=== PATIENT | male | born 1960 | race Caucasian/White ===

== ENCOUNTER 2024-12-20 23:27 | Inpatient (IN) | payer BC, SELFPAY ==
[2024-12-20 19:27] VITALS: BP 145/65
[2024-12-20 20:52] VITALS: BMI 40.2
[2024-12-20 21:10] VITALS: BP 126/67
[2024-12-20 21:27] LABS: Hematocrit 30.6 % (39.0-52.0); Hemoglobin 9.0 g/dL (13.0-18.0); Mean Corp Hgb Conc. 29.4 g/dL (33.0-37.0); Mean Corpuscular Volume 82.5 fL (80.0-94.0); Nucleated Red Blood Cells % 0.4 % (-); Platelet Count 242 10^3/uL (130-400); Red Cell Dist. Width 22.1 % (11.5-14.5)
[2024-12-20 21:44] LABS: Blood Urea Nitrogen 73 mg/dl (9-20); Calcium 9.0 mg/dl (8.4-10.2); Carbon Dioxide 22 mmol/L (22-30); Chloride 114 mmol/L (98-107); Estimated Creatinine Clearance 39 ml/min; Glucose 37 mg/dl (70-99); Sodium 142 mmol/L (135-145); eGFR 34.93
[2024-12-20 21:51] LABS: Troponin I 0.019 ng/ml
[2024-12-20 22:00] VITALS: BP 142/70
--- NOTE | 2024-12-20 22:00 | ED.GENMED ---
History of Present Illness
General
Chief Complaint: Breathing Problem
Source: patient and family
Exam Limitations: none
Time Seen by Provider: 12/20/24 21:40
History of Present Illness
History of Present Illness:
See MDM
Past History
Past History
ED Past Medical History: CAD and HTN
ED Past Surgical History: Cardiac
Family History
Family History: CAD
Phy Exam
Physical Exam
Physical Exam:
See MDM
Scores
Heart Failure Risk
Heart Failure Risk Score: Yes
History of Stroke or TIA: No
History of intubation for respiratory distress: No
Heart rate on ED arrival >/= 110: No
SaO2 <90% on arrival on room air: Yes
HR >/=110 during 3min walk test (or too ill to perform test): Yes
ECG has acute ischemic changes: No
Urea >/=12mmol/L (BUN 33.6mg/dL): Yes
Serum CO2>/=35mmol/L: No
Troponin I or T elevated to [place] Level (0.4mg/dL): No
NT-proBNP >/=5,000ng/L (5,000pg/ml): No
HF Risk Score: 4
Admission Status: HIGH RISK 26.1% Consider SNF treatment or admission to hospital
Course
Orders/Labs/Results
Orders:
Orders
12/20/24 19:35
Electrocardiogram (*1) Urgent
Reason for Study: Shortness of Breath
EKG- Treatment ONCE
12/20/24 21:02
Cardiac Monitoring- Treatment ONCE
IV Insert/Care/Rem.- Treatment PRN
CR Chest - 2 Views Urgent
Comment:
Reason For Exam: respiratory distress
O2 Therapy [RESP] Urgent
Titrate/Wean O2 to maintain O2 sat greater than (%): 93
Special Instructions: TO MAINTAIN CONTINUOUS O2 SATS >/= 93%
Pulse Ox/cont/shift [RESP] Urgent
Quantity: 1
Special Instructions: continuous pulse ox
12/20/24 21:06
Basic Metabolic Panel Urgent
Complete Blood Count/With Diff Urgent
12/20/24 21:11
NT-proBNP Urgent
Troponin I Urgent
12/20/24 21:50
Dextrose 50%-Water [Dextrose 50% Syringe] 25 grams IV NOW STA
12/20/24 21:58
Furosemide [Lasix] 80 mg IV NOW STA
Abnormal Lab Results
12/20/24
21:06
RBC 3.71 L 10^6/uL
(4.70-6.10)
Hgb 9.0 L g/dL
(13.0-18.0)
Hct 30.6 L %
(39.0-52.0)
MCH 24.3 L pg
(27.0-31.0)
MCHC 29.4 L g/dL
(33.0-37.0)
RDW 22.1 H %
(11.5-14.5)
Abs Immat Gran (auto) 0.2 H 10^3/uL
(0-0.05)
Absolute Neuts (auto) 7.2 H 10^3/uL
(1.4-6.5)
Absolute Lymphs (auto) 1.0 L 10^3/uL
(1.2-3.4)
Absolute Monos (auto) 0.9 H 10^3/uL
(0.1-0.6)
Immature Gran % 1.6 H %
(0-0.5)
Lymphocytes % 10.5 L %
(20.5-51.1)
Chloride 114 H mmol/L
(98-107)
BUN 73 H mg/dl
(9-20)
Creatinine 2.1 H mg/dL
(0.7-1.3)
Glucose 37 L* mg/dl
(70-99)
12/20/24 21:06
12/20/24 21:06
Vital Signs
Initial and Last Documented VS:
Initial Vital Signs
Temp Pulse Resp BP Pulse Ox
98.3 F 67 16 145/65 93
12/20/24 19:27 12/20/24 19:27 12/20/24 19:27 12/20/24 19:27 12/20/24 19:27
Last Documented Vital Signs
Temp Pulse Resp BP Pulse Ox
98.3 F 66 16 145/65 89
12/20/24 19:27 12/20/24 20:37 12/20/24 19:27 12/20/24 19:27 12/20/24 20:53
MDM/Problems Addressed
Differential Diagnosis Includes:
Note:
CHIEF COMPLAINT(S)
Shortness of breath and recent weight gain.
HISTORY OF PRESENT ILLNESS
The patient is a 63-year-old male who presents with complaints of shortness of breath and significant weight gain. According to his older brother, the patient has gained 10 pounds in the last five days, which the physical therapist attributed to
water retention. The patient underwent a triple bypass surgery and has been under the care of various therapists at home, including physical, speech, and occupational therapy. His follow-up appointments with his doctors are scheduled to take place
in 30 days in [place]. The patient has not been prescribed any diuretics since the surgery, although his brother noted that the patient appears to be fluid overloaded. During the conversation, it was evident that there are audible signs of fluid
congestion, and immediate intervention with intravenous diuretics was deemed necessary.
PAST MEDICAL AND SURIGICAL HISTORY
Recent triple bypass surgery.
ADDITIONAL HISTORY OBTAINED FROM SOURCES OTHER THAN THE PATIENT
Per the patient�s brother, the patient is participating in home-based therapies and has not been prescribed water pills following the bypass surgery.
MEDICATIONS
Patient is not currently on any diuretics. Ferrous sulfate was mentioned.
PHYSICAL EXAM
General: Mildly uncomfortable, fatigued
Skin: Warm, dry.
Head: Normocephalic, atraumatic
Neck: Appears supple, trachea midline.
Eyes, Ears, Nose, Mouth, and Throat: Oral mucosa moist.
Cardiovascular: No signs of cyanosis. Regular rate and rhythm
Respiratory: Tachypnea, crackles throughout
Abdomen: Non-distended
Musculoskeletal: +3 pitting edema bilateral lower extremities
Neurological: No focal neurological deficit observed.
Psychiatric: Cooperative, appropriate mood and affect.
PLAN
- Initiate treatment with intravenous diuretics, specifically Furosemide.
- Conduct blood work and a chest X-ray.
- Admit the patient for overnight observation and management, especially for fluid overload.
DIFFERENTIAL DIAGNOSIS
The Differential Diagnosis includes, in no particular order and is not limited to:
1. Congestive Heart Failure
2. Postoperative Fluid Overload
3. Pulmonary Edema
4. Acute Kidney Injury
5. Medication-induced Fluid Retention
6. Chronic Kidney Disease
7. Respiratory Infection
8. Pulmonary Embolism
9. Hypoalbuminemia
10. Valvular Heart Disease
Disposition:
SUMMARY OF ENCOUNTER
A 63-year-old male presented to the emergency department with shortness of breath and recent weight gain, suspected to be due to fluid retention. The patient had a recent history of triple bypass surgery. Upon physical examination and history
obtained from his brother, signs of fluid overload were identified. A chest X-ray and clinical assessment indicated pulmonary edema. The patient was found to be hypoglycemic, requiring intravenous dextrose administration. Immediate management
included the initiation of intravenous furosemide (Lasix) to address fluid overload and pulmonary edema. Supplemental oxygen was provided due to noted hypoxia.
DISPOSITION
Admit
ASSESSMENT
The primary concern is postoperative fluid overload leading to pulmonary edema. Contributing factors include possible congestive heart failure and reduced cardiac function following recent surgery. Hypoglycemia was an incidental finding needing
immediate correction.
EMERGENCY TREATMENTS ADMINISTERED
- Intravenous Furosemide (Lasix) for fluid overload.
- Intravenous Dextrose for hypoglycemia.
PLAN
- Admit the patient for close monitoring and further management of pulmonary edema and hypoglycemia.
- Continue intravenous diuretics and supplemental oxygen.
INDEPENDENT REVIEW OF LABS AND INTERPRETATION OF TESTS
- My independent chest x-ray interpretation is consistent with pulmonary edema.
MEDICATION RECONCILIATION
- Intravenous Furosemide administered.
- Intravenous Dextrose administered.
MEDICAL DECISION MAKING
- Complexity of Data Reviewed: Chronic conditions affecting care include postoperative fluid overload and recent triple bypass surgery. Differential diagnosis includes congestive heart failure, pulmonary edema, acute kidney injury, and
medication-induced fluid retention.
- Data:
Category 2: Clinical information was obtained from the patients brother, serving as an independent historian.
- Risk: Admission for observation was deemed necessary due to the potential complications linked with fluid overload and pulmonary edema, as well as the need to manage hypoglycemia and ensure effective treatment response.
DIAGNOSIS
- Pulmonary Edema, Congestive [ICD-10 J81.0]
- Fluid Overload [ICD-10 E87.70]
- Hypoglycemia, Unspecified [ICD-10 E16.2]
*Pulse Oximetry
SaO2: 89
Oxygen Mode of Delivery: Room air
Patient hypoxic: yes
*EKG
Interpreted by ED Provider?: Yes
Interpretation: abnormal (Sinus rhythm with first-degree AV block, rightward axis, no STEMI)
*Critical Care Note
Total Time (30-74mins, 75-104mins- exclusive of procedures): 33 min
comment:
The high probability of a clinically significant, sudden or life threatening deterioration of the cardiopulmonary system(s) required my full and direct attention, intervention and personal management. The aggregate critical care time was 33 minutes.
This time is in addition to time spent performing reported procedures but includes the following:
[x] Data Review and interpretation
[x] Patient assessment and monitoring of vital signs
[x] Documentation
[x] Medication orders and management
ED Attending Note
-
Portions of this chart may have been created with voice recognition software.� Occasional wrong word or��sound alike� substitutions may have occurred due to the inherent limitations of voice recognition software.
Discharge Plan
Departure
Patient Disposition: Admit
Date of Disposition: 12/20/24
Time of Disposition: 22:00
Admit to: Med/Surg
Presentation/result/management discussed w/ accepting MD/DO: Hospitalist
Discharge Problem:
Pulmonary edema, Hypoglycemia, Hypoxia
Interventions
Interventions:
*General Assessment Last Done: 12/20/24 20:53
*Neglect/Abuse Screening Last Done: 12/20/24 20:53
*ED- Fall Risk Assessment Last Done: 12/20/24 20:53
*ED COVID-19 Vaccine History Last Done: 12/20/24 20:53
ED- Cardiac Assessment Last Done: 12/20/24 20:53
ED- Pulmonary Assessment Last Done: 12/20/24 20:53
Discharge Date and Time
Print Language: INDONESIAN
[2024-12-20] MEDS: DEXTROSE 50% SYRINGE 25 GRAMS IV (22:11)
[2024-12-20 22:34] LABS: Potassium 5.8 mmol/L (3.5-5.1)
[2024-12-20 22:38] LABS: Glucose - Point of Care 82 mg/dl (70-99)
[2024-12-20 23:00] VITALS: BP 128/74
[2024-12-20] MEDS: LASIX 80 MG IV (23:10)
--- NOTE | 2024-12-20 23:17 | HPS.HSE ---
Family Physician
-
Family Physician: NOT KNOW UNKNOWN - PT DOES
Chief Complaint
-
SOB, Weight gain
History of Present Illness
Patient is a 63y M with PMH significant for ASCVD, DM-II and obesity who presents to ED complaining of SOB and weight gain. History obtained primarily from brother at the bedside due to patient somnolence. Patient underwent CABG x 3 at [facility] in [place] on 11/15/24. Following that he was at SNF in [place] before being discharged to his brother's care here in [place] (Saturday of last week). He has had home PT since that time. Brother was instructed to check the patient's weight
daily and has done so since Saturday. From Saturday until today patient has gained 10 lbs. He has been very SOB with any activity exertion. He sleeps 'all day' according to his brother. He has not complained of any chest pain, cough, fevers /
chills, etc.
Patient was on Lasix and Farxiga prior to his CABG. He is no longer on those medications.
He was also started on muscle relaxants for complaints of back pain during his SNF stay.
Patient was told he has sleep apnea during his recent hospitalization and as maintained on PAP therapy while there (though he frequently removed the mask).
He was advised to arrange a formal outpatient sleep study - though this has yet to be completed.
Medical History
Past Medical History
Past Medical History: Reports Other
Additional Past Medical History:
ASCVD
TIA / CVA
Carotid Stenosis
CHF
Hypertension
DM-II
Obesity
Past Surgical History: Reports Other
Additional Past Surgical History:
CABG x 3 (11/15/24 - [place], [place])
Bilateral BOOM
Carotid Stent
Social History
Tobacco: Non-smoker
Alcohol: None
Drug: None
Family History
Family History: Not pertinent
Allergies / Home Medications
Allergies reflects when Allergies were last updated in [facility].
Home Medications with original date entered in [facility]
Allergy/Medication List:
Allergies
Allergy/AdvReac Type Severity Reaction Status Date / Time
No Known Allergies Allergy Verified 12/20/24 19:34
Home Medications
gabapentin 100 mg capsule 100 mg PO BID 12/20/24
insulin glargine 100 unit/mL (3 mL) subcutaneous pen 12 unit SC DAILY 12/20/24
lidocaine 4 % topical patch (Lidocaine Pain Relief) 1 patch topical DAILY PRN pain 12/20/24
metoprolol tartrate 37.5 mg tablet 37.5 mg PO BID 12/20/24
pantoprazole 40 mg tablet,delayed release 40 mg PO DAILY 12/20/24
tamsulosin 0.4 mg capsule 0.4 mg PO DAILY 12/20/24
trazodone 50 mg tablet 50 mg PO HS 12/20/24
Review of Systems
-
History Source: Patient and Family
A 12 point ROS was completed and negative except as noted: Yes
Constitutional: Reports Weight Gain and Fatigue; Denies Fever or Chills
Respiratory: Reports Trouble Breathing; Denies Cough
Cardiac: Denies Chest Pain or Palpitations
Abdomen/GI: Denies Abdominal Pain, Nausea, Vomiting or Diarrhea
: Denies Dysuria or Frequency
Musculoskeletal: Reports Edema; Denies Joint Pain
Neurological: Denies Dizzy or Headache
Psych: Reports Other (Somnolence)
Physical Exam
Vital Signs
Vital Signs
Temp Pulse Resp BP Pulse Ox
98.3 F 59 16 128/74 89
12/20/24 19:27 12/20/24 23:10 12/20/24 19:27 12/20/24 23:10 12/20/24 22:05
Physical Exam
General: Other (Morbidly obese 63y M somnolent. Sleeping soundly with snoring / gasping. Awakens briefly to loud vocal or noxious stimuli then falls quickly back to sleep.)
HEENT: Other (Thick neck, rounded facies, crowded oropharynx.)
Respiratory: Other (Scattered coarse breath sounds. ? upper airway in origin. No rales / wheezes.)
Cardiac: S1/S2 and Regular Rhythm; No Murmur
GI: Other (Obese. Abdominal wall edema - predominantly on the R side (pt preferred side to lay on). No tenderness.)
Musculoskeletal: No Clubbing, No Cyanosis and Other (2-3+ pitting edema legs and abdominal wall. Wound medial aspect of the LLE.)
Neuro: Nonfocal/grossly intact and Other (Somnolent.)
Laboratory Results
-
12/20/24 21:06
12/20/24 22:17
Laboratory Results
Total Bilirubin Cancelled 12/20/24 21:06
AST Cancelled 12/20/24 21:06
ALT Cancelled 12/20/24 21:06
Alkaline Phosphatase Cancelled 12/20/24 21:06
Troponin I 0.019 ng/ml 12/20/24 21:11
Impression/Plan
-
A/P: Patient is a 63y M with PMH significant for ASCVD, HTN and DM-II who presents to ED complaining of SOB, weight gain and lethargy.
Acute on Chronic HF - Unknown Type
Acute Hypoxemic Respiratory Failure secondary to the above
- Admit for further evaluation and treatment.
- Hypoxemia, elevated BNP (with no prior for comparison), weight gain, significant edema.
- IV Lasix BID and follow I/Os, daily weights, etc.
- Check Echo.
- Obtain records from [facility] for review.
- Cardiology evaluation for additional recommendations
- Note that patient has dx of CHF and was on Farxiga and Lasix prior to his CABG.
- Follow for clinical improvement.
Acute TME / Somnolence
- Potentially multifactorial. Hypoglycemia, poorly treated sleep apnea, med effects, etc.
- Hold sedating meds (trazodone, muscle relaxants, etc).
- VBG done in the ED shows acidemia - but no elevation in pCO2 or decrease in HCO3?
- Trial of BiPAP therapy overnight and follow for improvement in alertness / mentation.
- Follow glucose and provide supplementation if needed.
- Check TFTs.
Renal Insufficiency
Hyperkalemia
- ? GARY v CKD. Degree of GARY seems likely given presentation.
- IV diuresis as noted above and follow for changes in SCr, potassium, etc.
- Obtain prior records as noted above for baseline SCr.
ASCVD
s/p CABG
- Patient s/p CABG x 3 on 11/15 at [facility] in [place].
- Obtain those records as noted above.
- ASA daily. Hold metoprolol acutely given bradycardia / somnolence.
- Would probably change to succinate formulation if / when resumed.
DM-II with Hypoglycemia
- Glucose 37 on initial labs. Improved with supplementation (82 on fingerstick).
- On only Lantus per current med list - hold for now.
- Follow glucose and provide additional supplementation if needed.
- SSI coverage if necessary.
- Update A1C.
Normocytic Anemia
- ? blood loss anemia following recent major surgery (11/15/24).
- Obtain prior records to establish baseline.
- Follow H&H for changes. Check iron studies.
Morbid Obesity due to excess calories
CHRIS Suspect
- Affects all aspects of care.
- On PAP therapy during recent hospital stay. Outpatient sleep study recommended but not yet completed.
- BiPAP during stay - titrate as needed.
- Encourage healthy diet and increased activity as able with goal of weight reduction.
DVT Prophylaxis: Subcut Heparin
Code Status: Full
[2024-12-20 23:20] LABS: Venous Blood Gas B.E. -4.8 mmol/L (-4 to +4); Venous Blood Gas O2 Sat % 99.2 %
[2024-12-20 23:52] LABS: Glucose - Point of Care 37 mg/dl (70-99)
[2024-12-20] MEDS: DEXTROSE 50% SYRINGE 12.5 GRAMS IV (23:55)
[2024-12-21] VITALS (15 sets, daily range): BP systolic 117–155; BP diastolic 58–99; PULSE 2; BMI 37.6
[2024-12-21 00:12] LABS: Glucose - Point of Care 67 mg/dl (70-99)
[2024-12-21] MEDS: DEXTROSE 50% SYRINGE 12.5 GRAMS IV ×12 (00:13→21:36)
[2024-12-21 00:34] LABS: Glucose - Point of Care 83 mg/dl (70-99)
[2024-12-21 01:46] LABS: Iron 60 ug/dl (49-181)
[2024-12-21 01:49] LABS: Troponin I 0.018 ng/ml
[2024-12-21 01:55] LABS: Total Iron Binding Capacity 263 ug/dl (261-462)
--- NOTE | 2024-12-21 02:12 | PTCARENOTE ---
Addendum entered by Jory Bowers 12/21/24 03:42:
Pt hypothermic, refuses raghav cardoza. Warm blankets placed
Original Note:
Rec'd pt from ED RN. Pt drowsy, lethargic with snoring respirations. B/l STACY's present. Pt oriented to self at this time. Pt placed on BiPAP by RT, pt frequently pulling at mask, yelling out 'help me'. Unable to articulate needs upon assessment.
After several attempts at BiPAP, pt placed back on 2L NC. Pt continues to yell out. Admission performed to the best of ability. Blood glucose 33 upon assessment. Dextrose given per JUN. Repeat 67, dextrose given again per JUN. FIELD SERVICES ANALYST contacted. IVF
hung per orders. Bed alarm in place for pt safety.
[2024-12-21 02:34] LABS: Glucose - Point of Care 33 mg/dl (70-99)
[2024-12-21] MEDS: D10W 1000 IV ×2 (02:36→15:42)
[2024-12-21 02:51] LABS: Glucose - Point of Care 67 mg/dl (70-99)
[2024-12-21 03:10] LABS: Glucose - Point of Care 99 mg/dl (70-99)
[2024-12-21 05:22] LABS: Glucose - Point of Care 49 mg/dl (70-99)
[2024-12-21 05:44] LABS: Glucose - Point of Care 74 mg/dl (70-99)
[2024-12-21 05:49] LABS: Hematocrit 30.6 % (39.0-52.0); Hemoglobin 9.1 g/dL (13.0-18.0); Mean Corp Hgb Conc. 29.7 g/dL (33.0-37.0); Mean Corpuscular Volume 83.2 fL (80.0-94.0); Platelet Count 210 10^3/uL (130-400); Red Cell Dist. Width 22.0 % (11.5-14.5)
[2024-12-21 06:15] LABS: Blood Urea Nitrogen 77 mg/dl (9-20); Calcium 9.0 mg/dl (8.4-10.2); Carbon Dioxide 21 mmol/L (22-30); Chloride 114 mmol/L (98-107); Estimated Creatinine Clearance 40 ml/min; Glucose 93 mg/dl (70-99); HDL Cholesterol 69 mg/dl; LDL Cholesterol, Calculated 40 mg/dl; Magnesium 2.4 mg/dl (1.6-2.3); Potassium 5.7 mmol/L (3.5-5.1); Sodium 142 mmol/L (135-145); Very Low Density Lipoprotein 6 mg/dl (0-30); eGFR 33.04
[2024-12-21 06:28] LABS: Troponin I 0.019 ng/ml
[2024-12-21 06:40] LABS: Glucose - Point of Care 43 mg/dl (70-99)
[2024-12-21 06:53] LABS: Glucose - Point of Care 81 mg/dl (70-99)
[2024-12-21] MEDS: LASIX 60 MG IV ×2 (07:50→15:36)
[2024-12-21] MEDS: HEPARIN 5000 UNITS SC ×2 (07:51→19:42)
[2024-12-21 07:53] LABS: Glucose - Point of Care 46 mg/dl (70-99)
[2024-12-21 08:22] LABS: Glucose - Point of Care 70 mg/dl (70-99)
[2024-12-21] MEDS: PROTONIX PO (08:23)
[2024-12-21] MEDS: LOW STRENGTH ASPIRIN PO (08:23)
[2024-12-21] MEDS: FLOMAX PO (08:23)
--- NOTE | 2024-12-21 08:31 | CON.CAR ---
Addendum entered and electronically signed by Jim Ortiz MD 12/21/24 18:10:
I saw and evaluated the patient, and I provided the substantive portion of the medical decision making.
I reviewed and agree with the note by BRIDGER Wilson and it accurately reflects our care.
I personally performed the medical decision making of the this encounter and my assessment and plan is below:
63-year-old man with recent bypass surgery at an outside institution. We have no records yet. The records have been requested. He presents with shortness of breath weight gain and lethargy. His x-ray that I reviewed clearly is consistent with heart
failure. His labs that I reviewed revealed anemia and hypoglycemia. Fortunately he is not having angina. He is not able to add much to history. We will proceed with diuresis, update an echocardiogram and review records when they become available.
His significant renal failure is adding to this high risk case. Its chronicity i.e. duration of renal failure and its severity are unknown to us. Review of all records will be helpful. He may benefit from nephrology consultation if his renal numbers
do not promptly improve.
Original Note:
Consultation
Consultation Request
Date/Time Consultation Requested: 12/21/2454
Date/Time Consultation Performed: 12/21/24829
Requesting Provider: Dr. Vu
Performing Provider: Jewell SPARKS for Dr. Ortiz
Reason for Consultation: CHF, CAD
Medical History
-
Chief Complaint: SOB, weight gain, lethargy
History of Present Illness:
63 y/o male with DM2 on insulin, hx TIA/CVA, carotid stenosis with stenting, hypertension, obesity, CHF (type unknown, though meds suggest pEF), [place], and CAD. Patient had recent CABG (11/15/24- [place]), then went to SNF, then has been staying with his
brother. He has had weight gain (10 lbs), [place], and lethargy. Apparently was formerly on Lasix and Farxiga. Hypoglycemia is noted and he is getting dextrose. Temp was 95.4 and he is on Abdi hugger. He is also noted to have abnormal renal function and
baseline is unknown. Hyperkalemia is also noted. PMH/HPI obtained from chart as patient has lethargy and confusion and is a poor historian as a result. He responds to voice, but does not seem to be reliable historian at this time. This is not a
change per nursing. He has soft restraints to wrists for safety per nursing.
Past Medical History
Past Medical History: CAD, HTN, NIDDM and Other (as above)
Past Surgical History: Cardiac
Social History
Living: Other (currently staying with brother)
Family History
Family History: Unable to Obtain
Allergies / Home Medications
Allergy/AdvReac Type Severity Reaction Status Date / Time
No Known Allergies Allergy Verified 12/20/24 19:34
�Medication �Instructions �Recorded �Confirmed �Type
gabapentin 100 mg capsule 100 mg PO BID 12/20/24 12/20/24 History
insulin glargine 100 unit/mL (3 12 unit SC DAILY 12/20/24 12/20/24 History
mL) subcutaneous pen
lidocaine 4 % topical patch 1 patch topical DAILY PRN pain 12/20/24 12/20/24 History
(Lidocaine Pain Relief)
metoprolol tartrate 37.5 mg tablet 37.5 mg PO BID 12/20/24 12/20/24 History
pantoprazole 40 mg tablet,delayed 40 mg PO DAILY 12/20/24 12/20/24 History
release
tamsulosin 0.4 mg capsule 0.4 mg PO DAILY 12/20/24 12/20/24 History
trazodone 50 mg tablet 50 mg PO HS 12/20/24 12/20/24 History
Review of Systems
-
Unable to obtain full review of systems at this time due to: Other (mental status)
History Source: Other (chart, nursing)
Constitutional: Weight Gain
Respiratory: Trouble Breathing
Musculoskeletal: Edema
Neurological: Other (lethargy/confusion)
Physical Exam
Vital Signs
Temp Pulse Resp BP Pulse Ox
95.8 F L 76 11 144/99 94
12/21/24 08:14 12/21/24 08:00 12/21/24 08:00 12/21/24 08:00 12/21/24 08:00
Lab Results
12/21/24 05:27
12/21/24 05:27
Troponin I 0.019 ng/ml 12/21/24 05:27
Idf-[id number]-Ljfqbveuigz Pept 4580 pg/ml 12/20/24 21:11
Physical Exam
General: Well Developed, Well Nourished and No Apparent Distress
HEENT: Normocephalic and Anicteric
Respiratory: Other (on O2 by NC, diminished lung sounds)
Cardiac: Regular Rhythm
Musculoskeletal: Edema (mild-moderate BLE edema)
Neuro: Awake (Opens eyes to voice, answers some questions intermittently)
Impression / Plan
-
Confusion/lethargy:
-w/u and management per primary team
CHF, acute, type unknown (suspect HFpEF based on meds- metoprolol tartrate):
-echo is ordered, but recent records will be helpful- requested
-LE edema noted, weight gain reported, CXR suggestive CHF- agree with IV diuresis, which requires intensive monitoring
-per notes, was previously on Lasix and Farxiga. No SGLT2I for now with hypoglycemia- see below.
Abnormal renal function:
-baseline is unknown, monitor with diuresis
-patient also with hyperkalemia
-may benefit from renal consult
CAD with recent hx CABG:
-continue ASA. Would resume BB at lower dosing with hold parameters and follow telemetry. No severe bradycardia is noted. Not clear why not on statin. Records requested. LFT's added on.
Hypoglycemia:
-37 on arrival
-getting dextrose
-management per primary
-has DM2 on insulin per chart
Anemia:
-monitor
-unknown baseline
Data Reviewed
-
EKG: Tracing Personally Visualized and interpreted (SR with 1st degree AVB 65 BPM)
Radiology: Report Reviewed by me (CXR: Moderate elevation of the right hemidiaphragm. Findings suggesting interstitial pulmonary edema pattern with small bilateral pleural effusions.)
Medical Tests (Nuc Med, Echo etc): Other (echo ordered and pending)
Labs: Labs Reviewed by me
[2024-12-21 09:03] LABS: Glycohemoglobin (HgbA1c) 6.8 % (4.0-5.6)
[2024-12-21 09:17] LABS: Glucose - Point of Care 45 mg/dl (70-99)
[2024-12-21 09:30] LABS: Glucose - Point of Care 87 mg/dl (70-99)
[2024-12-21 09:41] LABS: Cortisol, Random 25.5 ug/dl
[2024-12-21 10:20] LABS: Glucose - Point of Care 94 mg/dl (70-99)
[2024-12-21 10:43] LABS: ALT (SGPT) 117 U/L (0-50); AST (SGOT) 51 U/L (17-59); Albumin 3.5 g/dl (3.5-5.0); Alkaline Phosphatase 257 U/L (38-126); Total Protein 5.9 g/dl (6.3-8.2)
[2024-12-21 11:23] LABS: Glucose - Point of Care 67 mg/dl (70-99)
[2024-12-21 11:51] LABS: Blood Urea Nitrogen 71 mg/dl (9-20); Calcium 8.6 mg/dl (8.4-10.2); Carbon Dioxide 23 mmol/L (22-30); Chloride 114 mmol/L (98-107); Estimated Creatinine Clearance 38 ml/min; Glucose 62 mg/dl (70-99); Potassium 5.5 mmol/L (3.5-5.1); Sodium 143 mmol/L (135-145); eGFR 31.32
[2024-12-21 11:55] LABS: Glucose - Point of Care 98 mg/dl (70-99)
--- NOTE | 2024-12-21 11:56 | WOUNDNOTE ---
L MEDIAL LOWER LEG BEHIND KNEE
--- NOTE | 2024-12-21 11:56 | WOUNDNOTE ---
L MEDIAL DISTAL LOWER LEG
--- NOTE | 2024-12-21 11:59 | WOUNDNOTE ---
WOC RN note: Patient admitted with pulmonary edema, hypoxia.
See H&P for complete history. Lives by self in [facility], staying with brother in [place].
PMH: CABG x3,( at [facility] 11/15/24, DM type 2, obesity, TIA/CVA,HTN,CHF,ASCVD-Carotid stent.
Wound Location and type/assessment: Patient admitted with: Healing L medial leg surgical sites, post bypass surgery in October. Surgery done at [facility] in [place], here staying with brother post rehab. L medial leg behind knee with dry intact scab,
no drainage. L distal medial lower leg with tiny open surgical site, crusty serous drainage of small amt. Patient turned with assist of PCT's, sacrum and heels blanchable red. Repositioned onto side, pillow under calves.
Appetite: NPO.
Pressure redistribution devices in place: [facility] air bed, turning schedule.
Plan: silicone foams applied to L medial lower leg. Heels offloaded with pillow.
Will confirm orders with hospitalist and updated nurse Vivian.
Updated care plan and will follow as needed.
Note to case management of equipment requested for discharge: none
Recommend follow up with surgeon if leg wounds don't heal.
--- NOTE | 2024-12-21 12:53 | CM ---
CM spoke with brother/Benito
Pt in IMU confused currently
Pt typically resides with his other brother and brother's SO in [facility]
He is indep at baseline no AD, AxO, drives+ and works at [employer]
Pt had CABG on 11/15 in [place] and discharged to [facility] for 2 weeks for STR
From rehab, he was discharged to local brother's home/Benito who could provide care during recovery
Benito resides at [address] [place]
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
Pt is current with [facility] and has a WW and commode at brother's home
PCP- Dr Harmon/Karla [place] (p) [phone]
CM will continue to follow for dc planning
Therapy pending
Discharge Disposition- home with [facility] LUCAS vs watch for higher level needs
[2024-12-21 12:58] LABS: Glucose - Point of Care 73 mg/dl (70-99)
--- NOTE | 2024-12-21 13:10 | PTCARENOTE ---
Pt remains hypoglycemic throughout the day. Dr. Kiran notified, advised to continue hypoglycemia protocol.
[2024-12-21 13:25] LABS: Urine Character Clear (Clear)
[2024-12-21 13:42] LABS: Troponin I 0.024 ng/ml
[2024-12-21 14:04] LABS: Urine Red Blood Cell 0-2 /HPF (0-2); Urine White Cell 0-2 /HPF (0-5)
[2024-12-21 14:05] LABS: Urine Urothelial Cell 0-2 /LPF (FEW)
[2024-12-21 14:11] LABS: Glucose - Point of Care 60 mg/dl (70-99)
[2024-12-21 14:36] LABS: Glucose - Point of Care 91 mg/dl (70-99)
--- NOTE | 2024-12-21 14:49 | PTCARENOTE ---
Pt 's assessment as documented. Aox1, very agitated and continuously screaming. Emotional support provided. Pt repeatedly removing monitor and equipment. Unable to reorient- Dr. Kiran notified, order for b/l soft wrist restraints received.
Restraints applied as ordered, see intervention. Abdi hugger applied as ordered for goal temp of 97- see intervention. Pt hypoglycemic throughout the day, treated per protocol- see MAR and intervention . Bed alarm in place for safety.
[2024-12-21 15:37] LABS: Glucose - Point of Care 69 mg/dl (70-99)
--- NOTE | 2024-12-21 15:55 | W.PN.HOSP.TC ---
Today's Communication/Plan
-
Protective interventions
Echo
Cardiology evaluation
attempt of BiPAP
Oxygen supplementation
IV diuresis
Chest ultrasound to assess pleural effusion
Serial blood glucose monitoring
IV glucose for hypoglycemia.
Bladder scan.
Blood cultures.
Assessment / Plan
Assessment / Plan
Impression:
Patient is a 63y M with PMH significant for ASCVD, HTN and DM-II who presents to ED complaining of SOB, weight gain and lethargy.
Acute TME/somnolence
Acute CHF unknown type
Acute hypoxemic respiratory failure secondary to above
GARY
Hyperkalemia
ASCVD with recent CABG
IDDM with persistent hypoglycemia
Chronic normocytic anemia
Morbid obesity BMI 37.5
Plan
Acute on chronic CHF unknown type.
Acute hypoxemic respiratory failure secondary to above.
Volume overload on exam upon presentation
Reported significant weight gain since recent hospital discharge.
Chest x-ray with pulmonary edema per
Elevated pro CHF BNP.
Obtain outpatient medical records including echocardiogram.
Repeat echocardiogram pending.
Cardiology evaluation.
Continue IV diuresis with Lasix monitor renal function closely.
Chest ultrasound to assess pleural effusion
Acute TME / Somnolence
- Potentially multifactorial. Hypoglycemia, poorly treated sleep apnea, med effects, etc.
- Hold sedating meds (trazodone, muscle relaxants, etc).
- VBG done in the ED shows acidemia - but no elevation in pCO2 or decrease in HCO3?
- Trial of BiPAP therapy overnight and follow for improvement in alertness / mentation.
- Follow glucose and provide supplementation if needed.
- TFT/cortisol within normal limits
Acute kidney injury. Possibly CKD CKD. Unknown baseline.
Hyperkalemia
? Cardiorenal state
Bladder scan.
Urine electrolytes.
If retention, would be low threshold for De Dios catheter placement.
Continue IV diuresis monitor renal function closely
ASCVD
s/p CABG
- Patient s/p CABG x 3 on 11/15 at [facility] in [place].
- Obtain those records as noted above.
- ASA daily. Hold metoprolol acutely given bradycardia / somnolence.
- Would probably change to succinate formulation if / when resumed.
Type 2 diabetes with persistent hypoglycemia
Hypoglycemia likely multifactorial in the settings of decreased GFR/GARY as well as possibly higher dose of insulin provided prior to admission.
Updated hemoglobin A1c, pending.
Hold standing dose of insulin.
Continue serial blood glucose monitoring.
IV glucose provided in the form of D10/D50.
Glucagon.
Cortisol within normal limits.
Check blood cultures and urinalysis and reflex to cultures for completeness
Normocytic Anemia
- ? blood loss anemia following recent major surgery (11/15/24).
- Obtain prior records to establish baseline.
- Follow H&H for changes. Check iron studies.
Morbid Obesity due to excess calories
CHRIS Suspect
- Affects all aspects of care.
- On PAP therapy during recent hospital stay. Outpatient sleep study recommended but not yet completed.
- BiPAP during stay - titrate as needed.
- Encourage healthy diet and increased activity as able with goal of weight reduction.
DVT Prophylaxis: Subcut Heparin
Code Status: Full
Anticipated Discharge: > 48 hours
Subjective/Interval History
-
Date of Service: December 21, 2024
Objective Data
-
Labs:
Laboratory Results
12/21/24 12/21/24
05:27 11:26
WBC 9.8
Hgb 9.1 L
Hct 30.6 L
Plt Count 210
Sodium 142 143
Potassium 5.7 H 5.5 H
Chloride 114 H 114 H
Carbon Dioxide 21 L 23
BUN 77 H 71 H
Creatinine 2.2 H 2.3 H
Glucose 93 62 L
Calcium 9.0 8.6
Total Bilirubin 0.3
AST 51
ALT 117 H
Alkaline Phosphatase 257 H
Vital Signs:
Vital Signs
Temp Pulse Resp BP Pulse Ox
97.3 F 61 15 117/59 96
12/21/24 15:00 12/21/24 13:01 12/21/24 13:01 12/21/24 13:01 12/21/24 14:07
I&O
12/20/24 12/21/24 12/22/24
06:59 06:59 06:59
Output Total 735 / 735 500 / 500
Balance -735 / -735 -500 / -500
Physical Exam
-
General: Well Developed and No Apparent Distress
HEENT: Normocephalic, Atraumatic and Moist Mucous Membranes
Respiratory: Clear to Auscultation
Cardiac: Regular Rhythm and S1/S2; Negative Murmur, Rub or Gallop
GI: Soft, Nontender, Nondistended and Normal Bowel Sounds; Negative Organomegaly
Rectal: Deferred by Provider
Musculoskeletal: No Clubbing, No Cyanosis and No Edema
Skin: Negative Rash
Neuro: Nonfocal/Grossly Intact and Other (Confused, agitated response to loud voice, oriented to name and place)
[2024-12-21 16:10] LABS: Glucose - Point of Care 102 mg/dl (70-99)
[2024-12-21 17:24] LABS: Glucose - Point of Care 74 mg/dl (70-99)
[2024-12-21 18:39] LABS: Glucose - Point of Care 95 mg/dl (70-99)
[2024-12-21] MEDS: LOPRESSOR PO (19:36)
[2024-12-21 19:46] LABS: Glucose - Point of Care 76 mg/dl (70-99)
[2024-12-21 20:41] LABS: Glucose - Point of Care 70 mg/dl (70-99)
[2024-12-21 21:44] LABS: Glucose - Point of Care 66 mg/dl (70-99)
[2024-12-21 22:12] LABS: Glucose - Point of Care 102 mg/dl (70-99)
[2024-12-21 23:12] LABS: Glucose - Point of Care 74 mg/dl (70-99)
[2024-12-22] VITALS (12 sets, daily range): BP systolic 126–153; BP diastolic 58–85; PULSE 2–75; BMI 37.3
[2024-12-22 00:13] LABS: Glucose - Point of Care 76 mg/dl (70-99)
--- NOTE | 2024-12-22 00:55 | PTCARENOTE ---
patient continues to yell out and unable to reorient. Tried to remove restraints so patient could be placed on bipap. Patient removed bipap and monitoring wires within 5 mins of restraints being off. restraints were placed back on with 2L NC.
patient continues to be hypoglycemic at times throughout shift, following hypoglycemia protocol. assessment and vital signs as documented.
[2024-12-22] MEDS: D10W 1000 IV ×3 (01:07→21:08)
[2024-12-22] MEDS: DEXTROSE 50% SYRINGE 12.5 GRAMS IV (01:18)
[2024-12-22 01:28] LABS: Glucose - Point of Care 69 mg/dl (70-99)
[2024-12-22 01:56] LABS: Glucose - Point of Care 105 mg/dl (70-99)
--- NOTE | 2024-12-22 02:13 | W.PN.UPDATE ---
Update Note
Progress Note Update
Patient voided 600's PVR 492, Straight cath
Bladder scan 547 now unable to void, will place De Dios catheter.
UA done 12/21 noted. no other complaints at present.
--- NOTE | 2024-12-22 02:28 | PTCARENOTE ---
patient bladder scanned for 547 ml. this would have been 3rd straight cath, TT CLOUD SOLUTIONS ARCHITECT. 16 croatian De Dios catheter ordered and placed. 800 ml yellow urine drained.
[2024-12-22 03:08] LABS: Glucose - Point of Care 86 mg/dl (70-99)
[2024-12-22 03:58] LABS: Hematocrit 30.7 % (39.0-52.0); Hemoglobin 9.3 g/dL (13.0-18.0); Mean Corp Hgb Conc. 30.3 g/dL (33.0-37.0); Mean Corpuscular Volume 83.0 fL (80.0-94.0); Nucleated Red Blood Cells % 0.2 % (-); Platelet Count 257 10^3/uL (130-400); Red Cell Dist. Width 22.0 % (11.5-14.5)
[2024-12-22 04:00] LABS: Glucose - Point of Care 81 mg/dl (70-99)
[2024-12-22 04:18] LABS: Blood Urea Nitrogen 68 mg/dl (9-20); Calcium 8.7 mg/dl (8.4-10.2); Carbon Dioxide 24 mmol/L (22-30); Chloride 111 mmol/L (98-107); Estimated Creatinine Clearance 43 ml/min; Glucose 81 mg/dl (70-99); Potassium 5.3 mmol/L (3.5-5.1); Sodium 139 mmol/L (135-145); eGFR 37.04
[2024-12-22 05:13] LABS: Glucose - Point of Care 79 mg/dl (70-99)
--- NOTE | 2024-12-22 05:52 | PTCARENOTE ---
patient managed to get out of restraints and tried to get out of bed. required 3 RNs to return patient to bed. Patient was very aggressive and unable to reorient. Patient was yelling, cursing and trying to swing at staff. Patient was returned to bed
and restraints placed back on. continuing to monitor patient.
[2024-12-22 06:12] LABS: Glucose - Point of Care 77 mg/dl (70-99)
[2024-12-22 07:15] LABS: Glucose - Point of Care 91 mg/dl (70-99)
[2024-12-22] MEDS: FLOMAX PO (07:30)
[2024-12-22] MEDS: LOPRESSOR PO ×2 (07:31→20:21)
[2024-12-22] MEDS: PROTONIX PO (07:31)
[2024-12-22] MEDS: LOW STRENGTH ASPIRIN PO (07:31)
[2024-12-22] MEDS: HEPARIN 5000 UNITS SC ×3 (07:55→23:13)
[2024-12-22] MEDS: LASIX 60 MG IV ×2 (07:55→15:46)
[2024-12-22 08:10] LABS: Glucose - Point of Care 97 mg/dl (70-99)
--- NOTE | 2024-12-22 08:39 | W.PN.CD ---
Today's Communication / Plan
-
Continue diuresis
Await records
Impression / Plan
-
Confusion/lethargy:
-w/u and management per primary team
CHF, acute vs acute on chronic, type unknown:
-Severe exacerbation requiring IV diuresis and close monitoring of labs/tele
-echo is ordered, but recent records will be helpful- requested
-LE edema noted, weight gain reported, CXR suggestive CHF
-Continue 60mg IV Lasix BID
-per notes, was previously on Lasix and Farxiga. No SGLT2I for now with hypoglycemia- see below.
Abnormal renal function:
-baseline is unknown, monitor with diuresis
-patient also with hyperkalemia
-may benefit from renal consult
CAD with recent hx CABG:
-continue ASA and BID Metoprolol
-Not clear why not on statin. Records requested. LFT's mildly elevated
Hypoglycemia:
-37 on arrival
-getting dextrose
-management per primary
-has DM2 on insulin per chart
Anemia:
-monitor
-unknown baseline
Subjective: Patient confused and sleepy. Minimally participatory with exam. Per nursing, he has been like this since arrival.
Physical Exam
Vital Signs/Labs
Vital Signs
Temp Pulse Resp BP Pulse Ox
99.3 F 82 30 153/62 95
12/22/24 08:12 12/22/24 07:55 12/22/24 05:03 12/22/24 07:55 12/22/24 05:03
12/21/24 12/22/24 12/23/24
06:59 06:59 06:59
Actual Weight 232 lb 9.403 oz 230 lb 13.184 oz
12/22/24 03:42
12/22/24 03:42
Magnesium 2.4 mg/dl (1.6-2.3) H 12/21/24 05:27
Triglycerides 34 mg/dl (10-149) 12/21/24 05:27
LDL Cholesterol, Calc 40 mg/dl 12/21/24 05:27
VLDL Cholesterol, Calc 6 mg/dl (0-30) 12/21/24 05:27
HDL Cholesterol 69 mg/dl 12/21/24 05:27
12/20/24 12/21/24
21:11 05:27
Iak-V-Vvssizfiyxw Pept 4580 3960
LAB Results
12/20/24 12/21/24 12/21/24
21:11 01:17 05:27
Troponin I 0.019 0.018 0.019
12/21/24
13:01
Troponin I 0.024 D
Physical Exam
Constitutional: No acute distress
Cardiovascular: Rhythm & rate is regular, Pedal edema present and Murmur/rub/gallop absent
Respiratory: Respiratory effort normal and Other (lungs clear anteriorly)
Data Reviewed
-
Date of Service: December 22, 2024
Medical Decision Making: Reviewed Test Results, Independent Historian Assessment, Test Interpretation and Review of Case with other Provider
EKG: Tracing Personally Visualized and interpreted (tele: sinus, no arrythmias)
X-Ray/CT/US/MRI/NUC/PET: Report Reviewed by me
Labs: Labs Reviewed by me
--- NOTE | 2024-12-22 08:45 | PTCARENOTE ---
Patient received from maintenance technician 2nd shift. Patient restless in bed with occasionally moaning/yelling. AAOx1 at best. Unable to reorient or get appropriate answers to simple orientation questions. VSS. Patient in restraints due pulling at necessary
lines. De Dios placed for acute retention. No verbal complaints of pain at this time. Currently on 2L N/C for desaturations overnight. NPO. Cardiology added ECHO for today. Possible abdominal US. No other testing at this time. Call garcia in
reach.
[2024-12-22 09:13] LABS: Glucose - Point of Care 101 mg/dl (70-99)
--- NOTE | 2024-12-22 10:19 | W.PN.HOSP.TC ---
Today's Communication/Plan
-
ECHO
IV diuresis
Restrains
Seroquel
IV glucose with serial BG monitoring
Hope able to take PO once MS improves
Maintain De Dios for GARY and acute retention
Obtain medical records
Plan of care discussed with Pts brother/POA
Assessment / Plan
Assessment / Plan
Impression:
Patient is a 63y M with PMH significant for ASCVD, HTN and DM-II who presents to ED complaining of SOB, weight gain and lethargy.
Acute TME/somnolence
Acute CHF unknown type
Acute hypoxemic respiratory failure secondary to above
GARY
Hyperkalemia
ASCVD with recent CABG
IDDM with persistent hypoglycemia
Chronic normocytic anemia
Morbid obesity BMI 37.5
Plan
Acute on chronic CHF unknown type.
Acute hypoxemic respiratory failure secondary to above.
Volume overload on exam upon presentation
Reported significant weight gain since recent hospital discharge.
Chest x-ray with pulmonary edema per
Elevated pro CHF BNP.
Obtain outpatient medical records including echocardiogram.
Repeat echocardiogram pending.
Cardiology evaluation.
Continue IV diuresis with Lasix monitor renal function closely.
Chest ultrasound to assess pleural effusion
Acute TME / Somnolence initially and later with intermittent agitation
- Potentially multifactorial. Hypoglycemia, poorly treated sleep apnea, med effects, etc.
- VBG done in the ED shows acidemia - but no elevation in pCO2 or decrease in HCO3?
- Trial of BiPAP therapy overnight and follow for improvement in alertness / mentation.
- Follow glucose and provide supplementation if needed.
- TFT/cortisol within normal limits
- Provide single dose of Seroquel 25 mg, Resume Trazodone
Acute kidney injury. Possibly CKD CKD. Unknown baseline.
Hyperkalemia
? Cardiorenal state
Acute urinary retention required De Dios cath placement on 12/21
Continue IV diuresis monitor renal function closely
ASCVD
s/p CABG
- Patient s/p CABG x 3 on 11/15 at [facility] in [place].
- Obtain those records as noted above.
- ASA daily. Hold metoprolol acutely given bradycardia / somnolence.
- Would probably change to succinate formulation if / when resumed.
Type 2 diabetes with persistent hypoglycemia
Hypoglycemia likely multifactorial in the settings of decreased GFR/GARY as well as possibly higher dose of insulin provided prior to admission.
Updated hemoglobin A1c 6.8
Hold standing dose of insulin.
Continue serial blood glucose monitoring.
IV glucose provided in the form of D10/D50.
Glucagon.
Cortisol within normal limits.
Check blood cultures and urinalysis and reflex to cultures for completeness
Normocytic Anemia
- ? blood loss anemia following recent major surgery (11/15/24).
- Obtain prior records to establish baseline.
- Follow H&H for changes. Check iron studies.
Morbid Obesity due to excess calories
CHRIS Suspect
- Affects all aspects of care.
- On PAP therapy during recent hospital stay. Outpatient sleep study recommended but not yet completed.
- BiPAP during stay - titrate as needed.
- Encourage healthy diet and increased activity as able with goal of weight reduction.
DVT Prophylaxis: Subcut Heparin
Code Status: Full
Anticipated Discharge: > 48 hours
Subjective/Interval History
-
Date of Service: December 22, 2024
Objective Data
-
Labs:
Laboratory Results
12/22/24
03:42
WBC 11.2 H
Hgb 9.3 L
Hct 30.7 L
Plt Count 257 D
Sodium 139
Potassium 5.3 H
Chloride 111 H
Carbon Dioxide 24
BUN 68 H
Creatinine 2.0 H
Glucose 81
Calcium 8.7
Vital Signs:
Vital Signs
Temp Pulse Resp BP Pulse Ox
99.3 F 82 30 153/62 95
12/22/24 08:12 12/22/24 07:55 12/22/24 05:03 12/22/24 07:55 12/22/24 09:10
I&O
12/21/24 12/22/24 12/23/24
06:59 06:59 06:59
Output Total 735 / 735 2350 / 2350
Balance -735 / -735 -2350 / -2350
Physical Exam
-
General: Well Developed and No Apparent Distress
HEENT: Normocephalic, Atraumatic and Moist Mucous Membranes
Respiratory: Clear to Auscultation
Cardiac: Regular Rhythm and S1/S2; Negative Murmur, Rub or Gallop
GI: Soft, Nontender, Nondistended and Normal Bowel Sounds; Negative Organomegaly
Rectal: Deferred by Provider
Musculoskeletal: No Clubbing, No Cyanosis and No Edema
Skin: Negative Rash
Neuro: Nonfocal/Grossly Intact and Other (Confused, agitated response to loud voice, oriented to name and place)
[2024-12-22] MEDS: NEURONTIN 100 MG PO (11:04)
[2024-12-22] MEDS: SEROQUEL 25 MG PO (11:04)
[2024-12-22 11:11] LABS: Glucose - Point of Care 102 mg/dl (70-99)
[2024-12-22] MEDS: LOW STRENGTH ASPIRIN 81 MG PO (11:36)
[2024-12-22] MEDS: LOPRESSOR 25 MG PO (11:36)
[2024-12-22 13:27] LABS: Glucose - Point of Care 103 mg/dl (70-99)
[2024-12-22 15:21] LABS: Glucose - Point of Care 97 mg/dl (70-99)
[2024-12-22] MEDS: OFIRMEV 100 IV (15:46)
[2024-12-22 19:00] LABS: Glucose - Point of Care 114 mg/dl (70-99)
[2024-12-22] MEDS: DESYREL 50 MG PO (20:17)
[2024-12-22] MEDS: NEURONTIN PO (20:21)
--- NOTE | 2024-12-22 23:04 | W.PN.UPDATE ---
Update Note
Progress Note Update
-Patient agitated, trying to kick and swing extremities, Valium and soft restraint ordered.
-Patient noted that desatting while on O2 nasal cannula. Afebrile.
-small dose of Valium. Cbc, bmp, mag and vbg, chest x-ray ordered. Bipap at night
-Vbg result noted (ph 7.27, pco2 55, po2 125, hco3 25.3 ) Bipap setting adjusted and will repeat vbg in am.
-Chest x-ray result is pending
-3am--> Vbg result noted with improvement in am ( Ph 7.32, pco2 47, Po2 158, hco3 24.2).
-Bipap setting adjusted multiple times during the night as the patient was desatting while on the bipap.
-Current Bipap setting 20/10 15L O2 and SPo2 97-98%.
-4am--> morning dose of Lasix 60 mg given, IVF D10% rate from 100cc/hr to 40cc/hr.
-Plan discussed with the nursing staff if the patient continue to desatting will transfer the patient to ICU for NIV.
[2024-12-22] MEDS: VALIUM INJECTION 1 MG IV (23:12)
[2024-12-22 23:27] LABS: Venous Blood Gas B.E. -2.1 mmol/L (-4 to +4); Venous Blood Gas O2 Sat % 99.1 %
[2024-12-22 23:30] LABS: Glucose - Point of Care 162 mg/dl (70-99)
[2024-12-22 23:37] LABS: Hematocrit 31.2 % (39.0-52.0); Hemoglobin 9.5 g/dL (13.0-18.0); Mean Corp Hgb Conc. 30.4 g/dL (33.0-37.0); Mean Corpuscular Volume 80.8 fL (80.0-94.0); Platelet Count 249 10^3/uL (130-400); Red Cell Dist. Width 22.1 % (11.5-14.5)
[2024-12-22 23:42] LABS: Blood Urea Nitrogen 62 mg/dl (9-20); Calcium 9.2 mg/dl (8.4-10.2); Carbon Dioxide 25 mmol/L (22-30); Chloride 104 mmol/L (98-107); Estimated Creatinine Clearance 46 ml/min; Glucose 161 mg/dl (70-99); Magnesium 2.0 mg/dl (1.6-2.3); Potassium 5.2 mmol/L (3.5-5.1); Sodium 136 mmol/L (135-145); eGFR 39.39
[2024-12-23] VITALS (13 sets, daily range): BP systolic 107–164; BP diastolic 57–83; PULSE 2–84; BMI 37.1
--- NOTE | 2024-12-23 00:34 | PTCARENOTE ---
patient very agitated and aggressive. Patient continues to scream out and try to kick and swing extremities at staff. TT AIRFIELD MANAGER. Valium ordered and given. Patient relaxed with medication for a short period of time. Patient is on bipap with 1:1
supervision due to 4 point restraints. Patient keeps managing to loosen restraints because he is pulling so hard against them. Patient loosened enough to remove bipap and desated into 70s. Bilateral mitts applied. AIRFIELD MANAGER notified. Continuing to
monitor patient. care on going.
[2024-12-23] MEDS: VALIUM INJECTION 2 MG IV (00:51)
[2024-12-23 02:56] LABS: Venous Blood Gas B.E. -2.0 mmol/L (-4 to +4); Venous Blood Gas O2 Sat % 98.9 %
[2024-12-23 03:01] LABS: Glucose - Point of Care 181 mg/dl (70-99)
[2024-12-23 03:02] LABS: Hematocrit 29.0 % (39.0-52.0); Hemoglobin 9.0 g/dL (13.0-18.0); Mean Corp Hgb Conc. 31.0 g/dL (33.0-37.0); Mean Corpuscular Volume 80.3 fL (80.0-94.0); Nucleated Red Blood Cells % 0 % (-); Platelet Count 228 10^3/uL (130-400); Red Cell Dist. Width 21.6 % (11.5-14.5)
[2024-12-23 03:41] LABS: Blood Urea Nitrogen 58 mg/dl (9-20); Calcium 8.7 mg/dl (8.4-10.2); Carbon Dioxide 25 mmol/L (22-30); Chloride 105 mmol/L (98-107); Estimated Creatinine Clearance 51 ml/min; Glucose 180 mg/dl (70-99); Potassium 5.2 mmol/L (3.5-5.1); Sodium 135 mmol/L (135-145); eGFR 45.02
[2024-12-23] MEDS: LASIX 60 MG IV ×2 (04:09→18:11)
--- NOTE | 2024-12-23 04:58 | PTCARENOTE ---
Patient desating into 50s while on bipap. TT MANAGER [employer]S and respiratory, both at bedside. Bipap settings increased. 0800 dose of lasix given early per BRIDGER jacobo.
[2024-12-23 08:20] LABS: Glucose - Point of Care 157 mg/dl (70-99)
--- NOTE | 2024-12-23 08:58 | CM ---
TC from Paul Guadarrama CM from [facility], he offered assistance with d/c planning if needed- p# [phone].
[2024-12-23] MEDS: FLOMAX PO (09:43)
[2024-12-23] MEDS: LOPRESSOR PO ×2 (09:43→20:48)
[2024-12-23] MEDS: D10W IV (09:44)
[2024-12-23] MEDS: LOW STRENGTH ASPIRIN PO (09:44)
[2024-12-23] MEDS: NEURONTIN PO ×2 (09:44→20:48)
[2024-12-23] MEDS: PROTONIX PO (09:44)
[2024-12-23] MEDS: HEPARIN 5000 UNITS SC ×2 (09:48→18:13)
--- NOTE | 2024-12-23 09:48 | W.PN.HOSP.TC ---
Today's Communication/Plan
-
Haldol.
BiPAP.
Gentle diuresis.
Maintain De Dios
Assessment / Plan
Assessment / Plan
Impression:
Patient is a 63y M with PMH significant for ASCVD, HTN and DM-II who presents to ED complaining of SOB, weight gain and lethargy.
Acute TME/somnolence
Acute CHF unknown type
Acute hypoxemic respiratory failure secondary to above
GARY
Hyperkalemia
ASCVD with recent CABG
IDDM with persistent hypoglycemia
Chronic normocytic anemia
Morbid obesity BMI 37.5
Plan
Acute on chronic CHF preserved EF
Acute hypoxemic/hypercarbic respiratory failure secondary to above.
Volume overload on exam upon presentation
Reported significant weight gain since recent hospital discharge.
Chest x-ray with pulmonary edema per
Elevated pro CHF BNP.
Obtain outpatient medical records including echocardiogram.
Repeat echocardiogram normal LVEF with EF 60-65%. Moderate MR. Mild to moderate tricuspid regurgitation. Estimated pulmonary artery pressure 39 mmHg
Continue IV diuresis with Lasix monitor renal function closely.
Chest ultrasound to assess pleural effusion when able
Acute TME /delirium: Somnolence initially and later with intermittent agitation suspect secondary to protracted episode of hypoglycemia and hypoxia/hypercarbia with poorly treated sleep apnea
Protective intervention: Currently on restraints
Start Haldol and titrate dose for agitation.
Frequent reorientation.
BiPAP with follow-up ABG
Aspiration precautions
Acute kidney injury. Possibly CKD Unknown baseline.
Hyperkalemia
? Cardiorenal state
Acute urinary retention required De Dios cath placement on 12/21
Continue IV diuresis monitor renal function closely
ASCVD
s/p CABG
- Patient s/p CABG x 3 on 11/15 at [facility] in [place].
- Obtain those records as noted above.
- ASA daily. Hold metoprolol acutely given bradycardia / somnolence.
- Would probably change to succinate formulation if / when resumed.
Type 2 diabetes with persistent hypoglycemia
Hypoglycemia likely multifactorial in the settings of decreased GFR/GARY as well as possibly higher dose of insulin provided prior to admission.
Updated hemoglobin A1c 6.8
Hypoglycemia improved
Hold standing dose of insulin until mental status and oral intake improves
Continue serial blood glucose monitoring.
Serum cortisol within normal limits.
Normocytic Anemia
- ? blood loss anemia following recent major surgery (11/15/24).
- Obtain prior records to establish baseline.
- Follow H&H for changes. Check iron studies.
Morbid Obesity due to excess calories
CHRIS Suspect
- Affects all aspects of care.
- On PAP therapy during recent hospital stay. Outpatient sleep study recommended but not yet completed.
- BiPAP during stay - titrate as needed.
- Encourage healthy diet and increased activity as able with goal of weight reduction.
DVT Prophylaxis: Subcut Heparin
Code Status: Full
Anticipated Discharge: > 48 hours
Subjective/Interval History
-
Date of Service: December 23, 2024
Objective Data
-
Labs:
Laboratory Results
12/22/24 12/23/24
23:20 02:50
WBC 12.7 H 10.3
Hgb 9.5 L 9.0 L
Hct 31.2 L 29.0 L
Plt Count 249 228
Sodium 136 135
Potassium 5.2 H 5.2 H
Chloride 104 105
Carbon Dioxide 25 25
BUN 62 H 58 H
Creatinine 1.9 H 1.7 H
Glucose 161 H 180 H
Calcium 9.2 8.7
Vital Signs:
Vital Signs
Temp Pulse Resp BP Pulse Ox
99.6 F 76 21 144/67 100
12/23/24 07:30 12/23/24 06:00 12/23/24 06:00 12/23/24 06:00 12/23/24 06:00
I&O
12/22/24 12/23/24 12/24/24
06:59 06:59 06:59
Intake Total 1200 / 1200
Output Total 2350 / 2350 3750 / 3750
Balance -2350 / -2350 -2550 / -2550
Physical Exam
-
General: Well Developed and No Apparent Distress
HEENT: Normocephalic, Atraumatic and Moist Mucous Membranes
Respiratory: Clear to Auscultation
Cardiac: Regular Rhythm and S1/S2; Negative Murmur, Rub or Gallop
GI: Soft, Nontender, Nondistended and Normal Bowel Sounds; Negative Organomegaly
Rectal: Deferred by Provider
Musculoskeletal: No Clubbing, No Cyanosis and No Edema
Skin: Negative Rash
Neuro: Nonfocal/Grossly Intact and Other (Confused, agitated response to loud voice, oriented to name and place)
[2024-12-23] MEDS: HALDOL 1 MG IV (09:58)
--- NOTE | 2024-12-23 10:28 | W.PN.CD ---
Today's Communication / Plan
-
Continue IV diuresis
Impression / Plan
-
Confusion/lethargy:
-w/u and management per primary team
CHF, acute vs acute on chronic
-Severe exacerbation requiring IV diuresis and close monitoring of labs/tele
-TTE 12/21: EF 60-65%, mod MR, mild/mod TR, PASP 39
-LE edema noted, weight gain reported, CXR suggestive CHF
-Continue 60mg IV Lasix BID
-per notes, was previously on Lasix and Farxiga. No SGLT2I for now with hypoglycemia- see below.
Abnormal renal function:
-baseline is unknown, monitor with diuresis
-patient also with hyperkalemia
-may benefit from renal consult
CAD with recent hx CABG:
-continue ASA and BID Metoprolol
-Not clear why not on statin. Records requested. LFT's mildly elevated
Hypoglycemia:
-37 on arrival
-getting dextrose
-management per primary
-has DM2 on insulin per chart
Anemia:
-monitor
-unknown baseline
Subjective: Patient confused, in restraints, on BiPAP.
Physical Exam
Vital Signs/Labs
Vital Signs
Temp Pulse Resp BP Pulse Ox
99.6 F 76 21 144/67 95
12/23/24 07:30 12/23/24 06:00 12/23/24 06:00 12/23/24 06:00 12/23/24 08:08
12/22/24 12/23/24 12/24/24
06:59 06:59 06:59
Actual Weight 230 lb 13.184 oz 229 lb 15.074 oz
12/23/24 02:50
12/23/24 02:50
Magnesium 2.0 mg/dl (1.6-2.3) 12/22/24 23:20
Triglycerides 34 mg/dl (10-149) 12/21/24 05:27
LDL Cholesterol, Calc 40 mg/dl 12/21/24 05:27
VLDL Cholesterol, Calc 6 mg/dl (0-30) 12/21/24 05:27
HDL Cholesterol 69 mg/dl 12/21/24 05:27
12/20/24 12/21/24
21:11 05:27
Elu-R-Epaewrjckwp Pept 4580 3960
LAB Results
12/20/24 12/21/24 12/21/24
21:11 01:17 05:27
Troponin I 0.019 0.018 0.019
12/21/24
13:01
Troponin I 0.024 D
Physical Exam
Constitutional: No acute distress and Confusion
Cardiovascular: Rhythm & rate is regular, Pedal edema present (1+ bilateral), S1S2 is normal and Murmur/rub/gallop absent
Respiratory: Respiratory effort normal and Other (on BiPAP, breathing comfortably)
Data Reviewed
-
Date of Service: December 23, 2024
Medical Decision Making: Reviewed Test Results, Independent Historian Assessment, Test Interpretation and Review of Case with other Provider
EKG: Tracing Personally Visualized and interpreted (tele: NSR, no arrhythmia)
Echo: Report Reviewed by me (TTE 12/21: EF 60-65%, mod MR, mild/mod TR, PASP 39)
Labs: Labs Reviewed by me
[2024-12-23 11:42] LABS: Glucose - Point of Care 140 mg/dl (70-99)
[2024-12-23] MEDS: OFIRMEV 100 IV (12:22)
--- NOTE | 2024-12-23 14:15 | CM ---
Chart reviewed. Dam Operator will continue to monitor; will support DC planning when disposition needs are identified
--- NOTE | 2024-12-23 14:50 | PTCARENOTE ---
This RN alerted by 1:1 that PT was spitting up a large amount of thick sputum into bipap mask. Mask removed and pt suctioned vigorously, mouth care completed. RT at bedside. Pt placed on 5L NC with sats maintaining in high 90's. notified.
--- NOTE | 2024-12-23 15:27 | PTCARENOTE ---
Pt 's assessment as documented. Aox0, agitated, combative and in 4 point restraints + mitts with 1:1 at bedside. Emotional support provided to pt and brother. Pt remains NPO. Care as documented. Bed alarm in place for safety.
--- NOTE | 2024-12-23 15:40 | PTOTSP ---
Speech Language Pathology
Pt seen for clinical bedside swallow evaluation. Wet coughing noted by staff this date at rest. P.O. trials of puree and thin liquids provided. Pt actively accepted P.O. trials. No oral difficulty with limited consistencies provided. Consistent
wet cough with thin liquids. Tolerated first 2 tsps of puree without overt coughing. However, with 3rd, double audible swallow noted followed by wet coughing.
Recommend:
(1) NPO
(2) Oral care 4x/day with suctioning as needed
(3) Non-oral meds if possible. If necessary, can provide crucial meds crushed in small amount of puree
(4) Not appropriate for Aspiration Risk Hydration Protocol (ARHP) given mentation and agitation
(5) CURING SUPERVISOR to continue to follow
--- NOTE | 2024-12-23 17:41 | PTCARENOTE ---
Pt with elevated axillary temp, Dr. Kiran notified.
[2024-12-23 18:47] LABS: Glucose - Point of Care 108 mg/dl (70-99)
--- NOTE | 2024-12-23 21:00 | PTCARENOTE ---
Addendum entered by Lior Flores RN 12/23/24 22:42:
VSS. no other c/o pain at this time.
Original Note:
assumed care of Pt from previous RN after change of shift report. Pt restless, forgetful, uncooperative a times. awakens to verbal stimuli. currently in restraints per order present in orders. see worklist for restraint documentation. 1;1 at
bedside. foely present draining yellow urine. hs hygeine preformed. assessment as documented. Pt c/o pain to pct, pct reported this to RN. this RN assessed pts pain and asked pt where the pain was located, pt stated in their chest, then returned to
resting with eyes closed. HR 87 bpm, RR22, sat 99% on 5l, BP 160/63(87). Pt resting in bed, no grimacing or suggestions of pain in Pts physial appearance or facial expressions this time. assessment findings reported to INSTRUCTOR HAIRSPRING on shift, ekg done and
sent to STONE FINISHER. STONE FINISHER to bedside to assess. no changes to plan of care at this time.
[2024-12-23] MEDS: UNASYN IV (22:51)
[2024-12-23 23:27] LABS: Glucose - Point of Care 98 mg/dl (70-99)
[2024-12-24] VITALS (20 sets, daily range): BP systolic 58–166; BP diastolic 10–110; PULSE 2–82; O2SAT 100; BMI 36.2
[2024-12-24] MEDS: HEPARIN 5000 UNITS SC ×4 (00:09→23:18)
[2024-12-24] MEDS: UNASYN IV ×5 (00:53→23:17)
[2024-12-24 05:40] LABS: Glucose - Point of Care 82 mg/dl (70-99)
[2024-12-24 05:55] LABS: Hematocrit 28.4 % (39.0-52.0); Hemoglobin 8.5 g/dL (13.0-18.0); Mean Corp Hgb Conc. 29.9 g/dL (33.0-37.0); Mean Corpuscular Volume 80.9 fL (80.0-94.0); Nucleated Red Blood Cells % 0 % (-); Platelet Count 217 10^3/uL (130-400); Red Cell Dist. Width 21.2 % (11.5-14.5)
[2024-12-24] MEDS: OFIRMEV 100 IV (06:16)
[2024-12-24 06:34] LABS: Blood Urea Nitrogen 52 mg/dl (9-20); Calcium 8.6 mg/dl (8.4-10.2); Carbon Dioxide 30 mmol/L (22-30); Chloride 106 mmol/L (98-107); Estimated Creatinine Clearance 50 ml/min; Glucose 83 mg/dl (70-99); Potassium 5.0 mmol/L (3.5-5.1); Sodium 138 mmol/L (135-145); eGFR 44.74
[2024-12-24] MEDS: LASIX 60 MG IV ×2 (08:29→15:04)
[2024-12-24] MEDS: PROTONIX 40 MG PO (08:29)
[2024-12-24] MEDS: FLOMAX 0.4 MG PO (08:31)
[2024-12-24] MEDS: LOW STRENGTH ASPIRIN 81 MG PO (08:31)
[2024-12-24] MEDS: NEURONTIN 100 MG PO ×2 (08:31→20:36)
[2024-12-24] MEDS: LOPRESSOR 25 MG PO (08:32)
--- NOTE | 2024-12-24 08:42 | W.PN.CD ---
Today's Communication / Plan
-
continue IV lasix
trend Cr, K
monitor tele
increase metoprolol
Impression / Plan
-
Confusion/lethargy:
-w/u and management per primary team, currently on IV Abx
CHF, acute HFPEF
-Severe exacerbation requiring IV diuresis and close monitoring of labs/tele
-TTE 12/21: EF 60-65%, mod MR, mild/mod TR, PASP 39
-LE edema noted, weight gain reported, CXR suggestive CHF
-Continue 60mg IV Lasix BID
-per notes, was previously on Lasix and Farxiga. No SGLT2I for now with hypoglycemia- see below. No aldactone due to hyperkalemia.
Abnormal renal function: GARY and hyperkalemia, seems to be improving with diuresis
-baseline is unknown, monitor with diuresis
NSVT
-10 beats on tele
-hyperkalemia (5.8 on admission) improving with diuresis
-EF normal
-will increase metoprolol to succinate 50mg bid
CAD with recent hx CABG:
-continue ASA and BID Metoprolol
-Not clear why not on statin. Records requested. LFT's mildly elevated. Will ask patient when mental status improves if statin intolerant.
Hypoglycemia:
-37 on arrival
-getting dextrose
-management per primary
-has DM2 on insulin per chart
Anemia:
-monitor
-unknown baseline
Physical Exam
Vital Signs/Labs
Vital Signs
Temp Pulse Resp BP Pulse Ox
98.7 F 80 17 152/57 98
12/24/24 03:35 12/24/24 08:32 12/24/24 06:00 12/24/24 08:32 12/24/24 06:00
12/23/24 12/24/24 12/25/24
06:59 06:59 06:59
Actual Weight 104.3 kg 101.718 kg
12/24/24 05:40
12/24/24 05:40
Magnesium 2.0 mg/dl (1.6-2.3) 12/22/24 23:20
Triglycerides 34 mg/dl (10-149) 12/21/24 05:27
LDL Cholesterol, Calc 40 mg/dl 12/21/24 05:27
VLDL Cholesterol, Calc 6 mg/dl (0-30) 12/21/24 05:27
HDL Cholesterol 69 mg/dl 12/21/24 05:27
12/20/24 12/21/24
21:11 05:27
Rhw-[id number] Pept 4580 [id number]
LAB Results
12/21/24
13:01
Troponin I 0.024 D
Physical Exam
Constitutional: No acute distress
EENT: Moist mucous membranes
Cardiovascular: Rhythm & rate is regular, Pedal edema present, JVD present and Systolic murmur present
Respiratory: Respiratory effort normal and Lungs clear to auscul.
Neuro/Psych: Other (confused)
Data Reviewed
-
Date of Service: December 24, 2024
EKG: Other (Tele: SR, 10 beats NSVT)
Echo: Report Reviewed by me
Labs: Labs Reviewed by me
[2024-12-24] MEDS: TOPROL XL 25 MG PO (09:08)
--- NOTE | 2024-12-24 10:55 | W.PN.HOSP.TC ---
Today's Communication/Plan
-
Mental status improved.
Continue haloperidol 1 mg every 8 hours as needed
Discontinue restraints.
Aspiration precautions.
Resume trazodone.
Speech and swallow evaluation advance diet
Adjust insulin dose accordingly to avoid hypoglycemia.
IV diuresis per
Bilateral chest ultrasound to evaluate for possible pleural effusions.
Bilateral upper extremity Doppler with concern for DVT
Empiric antibiotics covering aspiration pathogens following temperature curve and final blood cultures.
Assessment / Plan
Assessment / Plan
Impression:
Patient is a 63y M with PMH significant for ASCVD, HTN and DM-II who presents to ED complaining of SOB, weight gain and lethargy.
Acute TME/somnolence
Acute CHF unknown type
Acute hypoxemic respiratory failure secondary to above
GARY
Hyperkalemia
ASCVD with recent CABG
IDDM with persistent hypoglycemia
Chronic normocytic anemia
Morbid obesity BMI 37.5
Plan
Acute on chronic CHF preserved EF
Acute hypoxemic/hypercarbic respiratory failure secondary to above.
Volume overload on exam upon presentation
Reported significant weight gain since recent hospital discharge.
Chest x-ray with pulmonary edema per
Elevated pro CHF BNP.
Obtain outpatient medical records including echocardiogram.
Repeat echocardiogram normal LVEF with EF 60-65%. Moderate MR. Mild to moderate tricuspid regurgitation. Estimated pulmonary artery pressure 39 mmHg
Continue IV diuresis with Lasix monitor renal function closely.
Chest ultrasound to assess pleural effusion when able
Acute TME /delirium: Somnolence initially and later with intermittent agitation suspect secondary to protracted episode of hypoglycemia and hypoxia/hypercarbia with poorly treated sleep apnea
Mental status improved and back to baseline on 12/16
Discontinue restraints
Maintain current dose of Haldol 1 mg IV every 8 hours as needed
Resume trazodone
Frequent reorientation.
Maintain BiPAP
Fever.
High aspiration risk given protracted TME.
Blood cultures pending.
Chest x-ray with diffuse interstitial infiltrates suggestive of pulmonary edema.
Empiric antibiotics/Unasyn initiated on 12/23. Will continue following final blood cultures and temperature curve.
Bilateral right greater than left upper extremity edema. Check ultrasound with concern for DVT.
Acute kidney injury. Possibly CKD Unknown baseline.
Hyperkalemia, improving
? Cardiorenal state
Acute urinary retention required De Dios cath placement on 12/21
Continue IV diuresis monitor renal function closely
ASCVD
s/p CABG
- Patient s/p CABG x 3 on 11/15 at [facility] in [place].
- Obtain those records as noted above.
- ASA daily. Hold metoprolol acutely given bradycardia / somnolence.
- Would probably change to succinate formulation if / when resumed.
Type 2 diabetes with persistent hypoglycemia
Hypoglycemia likely multifactorial in the settings of decreased GFR/GARY as well as possibly higher dose of insulin provided prior to admission.
Updated hemoglobin A1c 6.8
Hypoglycemia improved
Hold standing dose of insulin until mental status and oral intake improves
Continue serial blood glucose monitoring.
Serum cortisol within normal limits.
Normocytic Anemia
- ? blood loss anemia following recent major surgery (11/15/24).
- Obtain prior records to establish baseline.
- Follow H&H for changes. Check iron studies.
Morbid Obesity due to excess calories
CHRIS Suspect
- Affects all aspects of care.
- On PAP therapy during recent hospital stay. Outpatient sleep study recommended but not yet completed.
- BiPAP during stay - titrate as needed.
- Encourage healthy diet and increased activity as able with goal of weight reduction.
DVT Prophylaxis: Subcut Heparin
Code Status: Full
Anticipated Discharge: > 48 hours
Subjective/Interval History
-
Date of Service: December 24, 2024
Objective Data
-
Labs:
Laboratory Results
12/24/24
05:40
WBC 7.9
Hgb 8.5 L
Hct 28.4 L
Plt Count 217
Sodium 138
Potassium 5.0
Chloride 106
Carbon Dioxide 30
BUN 52 H
Creatinine 1.7 H
Glucose 83
Calcium 8.6
Vital Signs:
Vital Signs
Temp Pulse Resp BP Pulse Ox
98.7 F 80 17 152/57 98
12/24/24 03:35 12/24/24 08:32 12/24/24 06:00 12/24/24 08:32 12/24/24 06:00
I&O
12/23/24 12/24/24 12/25/24
06:59 06:59 06:59
Intake Total 1200 / 1200
Output Total 3750 / 3750 2024
Balance -2550 / -2550 -2024 / -2024
Physical Exam
-
General: Well Developed and No Apparent Distress
HEENT: Normocephalic, Atraumatic and Moist Mucous Membranes
Respiratory: Clear to Auscultation
Cardiac: Regular Rhythm and S1/S2; Negative Murmur, Rub or Gallop
GI: Soft, Nontender, Nondistended and Normal Bowel Sounds; Negative Organomegaly
Rectal: Deferred by Provider
Musculoskeletal: No Clubbing, No Cyanosis and No Edema
Skin: Negative Rash
Neuro: Awake, Alert, Oriented and Nonfocal/Grossly Intact
--- NOTE | 2024-12-24 11:40 | PTOTSP ---
Speech Language Pathology
Pt seen for dysphagia tx. Pt verbalizing in response to questions and following directions, but confusion noted. P.O. trials of puree, regular solids, and thin liquids provided. Adequate mastication, bolus formation, and A-P transit noted with no
oral residue. Cough with 1/10 trials of thin liquids. Increased frequency of cough noted with regular solids. Unsure if coughing related to baseline cough or aspiration. Pt remains at risk for aspiration given mentation and decreased alertness
level.
Recommend:
(1) Initiate IDDSI Level 4 (Puree) and Thin Liquids
(2) Aspiration precautions: sit upright, slow rate, single sips
(3) Meds as tolerated
(4) BOTTOM LINER to continue to follow
--- NOTE | 2024-12-24 11:59 | CM ---
CM reviewed chart, patient seen bedside, remains on 1:1, off restraints. Speech in to see patient. Patient remains on IV lasix. Therapy recommending SNF, patient will need to be off restraints prior to d.c to SNF. CM will continue to follow for all
discharge planning needs.
Plan; SNF vs [facility], if SNF will require off restraints at least 24 hrs
[2024-12-24 12:30] LABS: Glucose - Point of Care 126 mg/dl (70-99)
[2024-12-24] MEDS: TYLENOL 650 MG PO ×2 (15:00→20:35)
[2024-12-24 17:19] LABS: Glucose - Point of Care 141 mg/dl (70-99)
[2024-12-24] MEDS: TOPROL XL 50 MG PO (20:36)
[2024-12-24] MEDS: DESYREL 50 MG PO (21:25)
[2024-12-24 21:42] LABS: Glucose - Point of Care 125 mg/dl (70-99)
[2024-12-25] VITALS (17 sets, daily range): BP systolic 114–161; BP diastolic 52–80; PULSE 73; O2SAT 99; BMI 34.7
--- NOTE | 2024-12-25 03:19 | PTCARENOTE ---
Assumed care for patient overnight. Pt restless at times. Pt able to answer all orientation questions correctly. [place]. Received pt on 2L NC. O2 98%. Pt has a moist frequent cough. RT bedside to place pt on the BiPAP, pt took off the BiPAP and states
'I can't wear this mask I can't sleep'. Despite education, pt refusing BiPAP. IV abx cont. Pt took pills whole one at a time with water. NSR on the monitor. De Dios draining clear yellow urine. Assessment and care as charted. Pt having pain in the
right hip, PRN Tylenol administered see JUN. Call garcia within reach.
[2024-12-25] MEDS: UNASYN IV ×4 (04:48→22:14)
[2024-12-25 04:53] LABS: Hematocrit 27.4 % (39.0-52.0); Hemoglobin 8.4 g/dL (13.0-18.0); Mean Corp Hgb Conc. 30.7 g/dL (33.0-37.0); Mean Corpuscular Volume 80.6 fL (80.0-94.0); Platelet Count 212 10^3/uL (130-400); Red Cell Dist. Width 20.8 % (11.5-14.5); Venous Blood Gas B.E. 5.8 mmol/L (-4 to +4); Venous Blood Gas O2 Sat % 99.2 %
[2024-12-25 04:56] LABS: Venous Blood Gas O2 Therapy BIPAP
[2024-12-25 05:27] LABS: Blood Urea Nitrogen 52 mg/dl (9-20); Calcium 8.6 mg/dl (8.4-10.2); Carbon Dioxide 32 mmol/L (22-30); Chloride 103 mmol/L (98-107); Estimated Creatinine Clearance 53 ml/min; Glucose 104 mg/dl (70-99); Magnesium 1.9 mg/dl (1.6-2.3); Potassium 4.9 mmol/L (3.5-5.1); Sodium 138 mmol/L (135-145); eGFR 48.11
[2024-12-25 07:39] LABS: Glucose - Point of Care 64 mg/dl (70-99)
[2024-12-25] MEDS: NOVOLOG FLEXPEN-LOW RESISTANCE SC ×2 (07:45→08:36)
--- NOTE | 2024-12-25 08:04 | W.PN.HOSP.TC ---
Today's Communication/Plan
-
Mental status remains improved, knows why he is in the hospital, good insight.
Continue haloperidol 1 mg every 8 hours as needed
Aspiration precautions. Patient refuses a modified diet, he adamantly stated he wants a Regular Diet despite Aspiration Risks. Seems like patient has good insight today.
IV diuresis today, PO diuresis tomorrow
Empiric antibiotics covering aspiration pathogens following temperature curve and final blood cultures.
Transfer to tele
Needs acute rehab placement
Assessment / Plan
Assessment / Plan
Physical Exam
General: Well Developed and No Apparent Distress
HEENT: Normocephalic, Atraumatic and Moist Mucous Membranes
Respiratory: Clear to Auscultation
Cardiac: Regular Rhythm and S1/S2
GI: Soft, Nontender, Nondistended and Normal Bowel Sounds
Musculoskeletal: No Cyanosis and No Edema
Skin: Warm. Dry.
Neuro: Awake, Alert, Oriented x3 and Nonfocal/Grossly Intact
Impression:
Patient is a 63y M with H significant for ASCVD, HTN and DM-II who presented to [facility] ED complaining of SOB, weight gain and lethargy.
Acute TME/somnolence
Acute CHF unknown type
Acute hypoxemic respiratory failure secondary to above
GARY
Hyperkalemia
ASCVD with recent CABG
IDDM with persistent hypoglycemia
Chronic normocytic anemia
Morbid obesity BMI 37.5
Plan
Acute on chronic CHF preserved EF
Acute hypoxemic/hypercarbic respiratory failure secondary to above.
Volume overload on exam upon presentation
Reported significant weight gain since recent hospital discharge.
Chest x-ray with pulmonary edema per
Elevated pro CHF BNP.
Obtain outpatient medical records including echocardiogram.
Repeat echocardiogram normal LVEF with EF 60-65%. Moderate MR. Mild to moderate tricuspid regurgitation. Estimated pulmonary artery pressure 39 mmHg
Continue IV diuresis with Lasix monitor renal function closely, last day of IV Lasix is 12/25/24 --> transitioning to PO Lasix starting on 12/26/24
Continue beta sarah.
No Aldactone given hyperkalemia
No SGLT2-I for now given presentation with hypoglycemia
Ultrasound to assess pleural effusion on 12/25/24: No significant pleural effusion was demonstrated on either side.
Acute TME /delirium: Somnolence initially and later with intermittent agitation suspect secondary to protracted episode of hypoglycemia and hypoxia/hypercarbia with poorly treated sleep apnea
Mental status improved and back to baseline on 12/24
Discontinue restraints
Maintain current dose of Haldol 1 mg IV every 8 hours as needed
Resume trazodone
Frequent reorientation.
Maintain BiPAP
Fever -- last fever was on 12/23/24 at 3 pm, but patient has also been receiving Tylenol for pain -- will hold Tylenol, can give one time doses if needed for pain
High aspiration risk given protracted TME.
Patient continues to refuse refuse pureed diet and demanded a regular diet, and he said he accepts the risks (see speech note from 12/25/24)
Blood cultures with no growth to date.
Chest x-ray with diffuse interstitial infiltrates suggestive of pulmonary edema.
Empiric antibiotics/Unasyn initiated on 12/23. Will continue following final blood cultures and temperature curve.
Bilateral right greater than left upper extremity edema. Ultrasound on 12/25/24 with no DVT.
Acute kidney injury. Possibly CKD Unknown baseline.
Hyperkalemia, improving
? Cardiorenal state
Acute urinary retention required De Dios cath placement on 12/21
Continue IV diuresis monitor renal function closely, transition to PO Lasix tomorrow
ASCVD
s/p CABG
- Patient s/p CABG x 3 on 11/15 at [facility] in [place].
- ASA daily.
- Continue Toprol XL.
NSVT
-Continue beta sarah
Type 2 diabetes with persistent hypoglycemia
Hypoglycemia likely multifactorial in the settings of decreased GFR/GARY as well as possibly higher dose of insulin provided prior to admission.
Updated hemoglobin A1c 6.8
Hypoglycemia improved
Hold standing dose of insulin for now until demonstrates consistent oral intake. Continue Sliding Scale Insulin for now.
Continue serial blood glucose monitoring.
Serum cortisol within normal limits.
Normocytic Anemia
- ? blood loss anemia following recent major surgery (11/15/24).
- Obtain prior records to establish baseline.
- Follow H&H for changes. Iron studies unremarkable.
Morbid Obesity due to excess calories
CHRIS Suspect
- Affects all aspects of care.
- On PAP therapy during recent hospital stay. Outpatient sleep study recommended but not yet completed.
- BiPAP during stay - titrate as needed.
- Encourage healthy diet and increased activity as able with goal of weight reduction.
Speech & Swallow: Jory Marely: 'First day he was able to give me information. Said he had a video swallow in [facility] that recommended pureed and thicken liquids. He wouldn�t eat it and decided to accept risks while he was at the
hospital. He would be unwilling to do a modified diet at this point too, so I don�t think a video swallow is indicated. He would like regular food. We talked about the risks and he said he has heard them all before and said that getting pneumonia is
a chance of one and 100. I told him that number is incorrect, but he didn�t care. Very poor insight and judgment.'
DVT Prophylaxis: Subcut Heparin
Code Status: Full
On 12/25/24, I spoke over the phone with patient's brother Benito, and I answered all of his questions and concerns to satisfaction.
Anticipated Discharge: > 48 hours
Subjective/Interval History
-
Date of Service: December 25, 2024
Patient was seen and examined. He denied any symptoms or complaints.
Objective Data
-
Labs:
Laboratory Results
12/25/24
04:43
WBC 9.5
Hgb 8.4 L
Hct 27.4 L
Plt Count 212
Sodium 138
Potassium 4.9
Chloride 103
Carbon Dioxide 32 H
BUN 52 H
Creatinine 1.6 H
Glucose 104 H
Calcium 8.6
Vital Signs:
Vital Signs
Temp Pulse Resp BP Pulse Ox
98.0 F 71 12 150/59 99
12/25/24 03:26 12/25/24 06:22 12/25/24 06:22 12/25/24 06:22 12/25/24 06:22
I&O
12/24/24 12/25/24 12/26/24
06:59 06:59 06:59
Intake Total 320 / 320
Output Total 2024 2900 / 2900
Balance -2024 / -2024 -2579 / -2579
[2024-12-25 08:14] LABS: Glucose - Point of Care 128 mg/dl (70-99)
[2024-12-25] MEDS: PROTONIX 40 MG PO (09:00)
[2024-12-25] MEDS: FLOMAX 0.4 MG PO (09:00)
[2024-12-25] MEDS: NEURONTIN 100 MG PO ×2 (09:01→19:29)
[2024-12-25] MEDS: HEPARIN 5000 UNITS SC ×3 (09:01→22:14)
[2024-12-25] MEDS: TOPROL XL 50 MG PO ×2 (09:01→19:30)
[2024-12-25] MEDS: LOW STRENGTH ASPIRIN 81 MG PO (09:01)
[2024-12-25] MEDS: LASIX 60 MG IV ×2 (09:02→16:45)
--- NOTE | 2024-12-25 09:42 | CM ---
Patient seen at bedside in IMU. Patient not on 1:1 today and no restraints at this time. Patient resting. when patient seen. Patient discharge plan pending medical treatment plan. Therapy recommending SNF, CM will call to family to review discharge
plan. CM will continue to follow for discharge planning needs.
Plan;SNF vs [facility]; pending medical treatment plan
[2024-12-25] MEDS: TYLENOL 650 MG PO (10:04)
--- NOTE | 2024-12-25 11:15 | PTOTSP ---
Speech Language Pathology
Pt seen for dysphagia tx. Sitting in chair upon arrival. Alert and conversive. Pt stated he wants regular food. Upon questioning, pt stated he had VSE completed at [facility] with findings of pureed solids/thickened liquids. He
stated he did not eat this for some time, and then chose to take himself off it. He stated that the spiral tube winder at that hospital discussed risks with him. Again discussed risks with pt, including aspiration PNA, which could potentially be fatal. Pt
stated it was a '1 in 100 chance.' Discussed that this number is not accurate, and pt stated 'yes it is.' Pt stated that even if repeat VSE completed showing aspiration, and if modified diet would prove to be safer for lungs/decrease risk of PNA,
he would not be willing to follow recommendations. He stated he is willing to accept aspiration risk and eat regular solids/thin liquids. Pt does not feel that he is at risk. Notified MD and RN. TAKE OUT WAITRESS to sign off at this time. Please reconsult if
pt willing to consider VSE/modified diet.
[2024-12-25 11:38] LABS: Glucose - Point of Care 173 mg/dl (70-99)
--- NOTE | 2024-12-25 12:22 | PTCARENOTE ---
Patient seen by speech therapy. Patient verbalized to RN that he 'is going to eat whatever he wants and there is nothing wrong with him'. Patient education provided and patient refused teaching. Dr. Dodge made aware. Regular diet ordered by MD.
Care ongoing.
[2024-12-25] MEDS: NOVOLOG FLEXPEN-LOW RESISTANCE 1 UNITS SC (12:41)
--- NOTE | 2024-12-25 15:57 | PTCARENOTE ---
Patient AOx3. Forgetful. Agitated at times. Bed and chair alarm on and audible. [place]AMAT[place] with B/L hearing aids. Attempted to wean patient off of 2L NC, but SpO2 dropped below 88%. Moist non-productive cough. NSR on monitor. BP stable. Voiding in urinal.
Assist x1 with RW when OOB. Call garcia within reach, bed in lowest position, and bed of wheels locked.
[2024-12-25] MEDS: NOVOLOG FLEXPEN-LOW RESISTANCE 2 UNITS SC (16:52)
--- NOTE | 2024-12-25 16:57 | W.PN.CD ---
Today's Communication / Plan
-
Move to PO Lasix tomorrow
If hypoglycemia can be consistently avoided then in future reconsider SGLT2-I
For now no Aldactone, K+ was 5.8 on admit not on Aldactone
Add statin later if not statin intolerant and LDL rises to over 55
Impression / Plan
-
Acute on chronic HFPEF
- Improved. admit weight 103/105.5 on 12/20-. Now 12/25/2024 weight 97.4 kg
- Edema improved
- Move from IV 60 BID => Lasix 80 mg PO BID starting 12/26/2024
- Avoiding SGLT2-I for now given presentation with hypoglycemia
- Avoiding Aldactone for now due to hyperkalemia.
CAD with recent hx CABG:
-continue ASA and BID Metoprolol
Statin, LDL is 40 so for now no statin
NSVT => just beta sarah
Confusion/lethargy => improved
Hypoglycemia => improved, hard to want to use SGLT2-I until we know his DM is better w/o hypoglycemia
Renal insuf, ? GARY on CKD
Anemia
Subjective: Denies CP or dyspnea. Sitting up and comfortable.
Data: Echo 12/21: EF 60-65%, mod MR, mild/mod TR, PASP 39
Physical Exam
Vital Signs/Labs
Vital Signs
Temp Pulse Resp BP Pulse Ox
98.0 F 68 14 129/68 100
12/25/24 03:26 12/25/24 16:45 12/25/24 16:43 12/25/24 16:45 12/25/24 16:43
12/24/24 12/25/24 12/26/24
06:59 06:59 06:59
Actual Weight 101.718 kg 97.4 kg
12/25/24 04:43
12/25/24 04:43
Magnesium 1.9 mg/dl (1.6-2.3) 12/25/24 04:43
Triglycerides 34 mg/dl (10-149) 12/21/24 05:27
LDL Cholesterol, Calc 40 mg/dl 12/21/24 05:27
VLDL Cholesterol, Calc 6 mg/dl (0-30) 12/21/24 05:27
HDL Cholesterol 69 mg/dl 12/21/24 05:27
12/20/24 12/21/24
21:11 05:27
Ggh-[id number]-Bzjouudxxae Pept 4580 [id number]
Physical Exam
Constitutional: No acute distress
Cardiovascular: Rhythm & rate is regular and Pedal edema is absent
Respiratory: Respiratory effort normal and Lungs clear to auscul.
GI: Soft and Distention absent
Neuro/Psych: AO x 3
Data Reviewed
-
Date of Service: December 25, 2024
[2024-12-25 17:03] LABS: Glucose - Point of Care 213 mg/dl (70-99)
[2024-12-25 21:14] LABS: Glucose - Point of Care 259 mg/dl (70-99)
[2024-12-25] MEDS: DESYREL 50 MG PO (21:36)
[2024-12-26] VITALS (8 sets, daily range): BP systolic 100–150; BP diastolic 69–86; BMI 35.6
--- NOTE | 2024-12-26 00:49 | PTCARENOTE ---
Patient AAOx3, [employer] [place] [employer] [place], agitated at times. Pt mentation improving. Received pt on 2L NC O2 98%. Pt has a moist frequent cough. NSR on the monitor. Pt continent of urine standing and using the urinal with assistance of 1. L wrist IV leaking. New IV site
in L hand. IV abx cont. Pt ringing call garcia appropriately. Call garcia within reach. Bed alarm on for safety.
[2024-12-26] MEDS: UNASYN IV ×4 (04:05→23:46)
[2024-12-26 05:59] LABS: Hematocrit 27.7 % (39.0-52.0); Hemoglobin 8.5 g/dL (13.0-18.0); Mean Corp Hgb Conc. 30.7 g/dL (33.0-37.0); Mean Corpuscular Volume 80.3 fL (80.0-94.0); Nucleated Red Blood Cells % 0 % (-); Platelet Count 223 10^3/uL (130-400); Red Cell Dist. Width 20.5 % (11.5-14.5)
[2024-12-26 06:21] LABS: Blood Urea Nitrogen 55 mg/dl (9-20); Calcium 8.7 mg/dl (8.4-10.2); Carbon Dioxide 32 mmol/L (22-30); Chloride 102 mmol/L (98-107); Estimated Creatinine Clearance 46 ml/min; Glucose 160 mg/dl (70-99); Potassium 5.2 mmol/L (3.5-5.1); Sodium 136 mmol/L (135-145); eGFR 41.77
[2024-12-26 08:27] LABS: Glucose - Point of Care 149 mg/dl (70-99)
[2024-12-26] MEDS: NOVOLOG FLEXPEN-LOW RESISTANCE SC (08:41)
[2024-12-26] MEDS: TOPROL XL 50 MG PO ×2 (09:10→19:51)
[2024-12-26] MEDS: FLOMAX 0.4 MG PO (09:10)
[2024-12-26] MEDS: NEURONTIN 100 MG PO ×2 (09:10→19:50)
[2024-12-26] MEDS: PROTONIX 40 MG PO (09:10)
[2024-12-26] MEDS: LASIX 80 MG PO ×2 (09:11→15:56)
[2024-12-26] MEDS: LOW STRENGTH ASPIRIN 81 MG PO (09:11)
[2024-12-26] MEDS: HEPARIN 5000 UNITS SC ×3 (09:13→23:45)
--- NOTE | 2024-12-26 10:25 | W.PN.CD ---
Today's Communication / Plan
-
Monitor weight/edema
Impression / Plan
-
Acute on chronic HFPEF
- Improved. admit weight 103/105.5 on 12/20-.
weights:
admit 103-105.4 kg
12/25/2024: 97.4 kg
12/26/2024: 100 kg, did he really gain 2.6 kg in 1 day??
- Edema improved, still trace to 1+
- Moved from IV 60 BID => Lasix 80 mg PO BID started 12/26/2024
- watch weight/edema
- Avoiding SGLT2-I for now given presentation with hypoglycemia
- Avoiding Aldactone for now due to hyperkalemia.
CAD with recent hx CABG:
-continue ASA and BID Metoprolol
Statin, LDL is 40 so for now no statin
NSVT => just beta sarah
Confusion/lethargy => improved
Hypoglycemia => improved, hard to want to use SGLT2-I until we know his DM is better w/o hypoglycemia
Renal insuf, ? GARY on CKD
Anemia
Subjective: Denies CP or dyspnea. Sitting up and comfortable.
Data: Echo 12/21: EF 60-65%, mod MR, mild/mod TR, PASP 39
Physical Exam
Vital Signs/Labs
Vital Signs
Temp Pulse Resp BP Pulse Ox
99.4 F 71 10 150/71 97
12/26/24 03:00 12/26/24 06:00 12/26/24 06:00 12/26/24 06:00 12/26/24 06:00
12/25/24 12/26/24 12/27/24
06:59 06:59 06:59
Actual Weight 97.4 kg 100 kg
12/26/24 05:48
12/26/24 05:48
Magnesium 1.9 mg/dl (1.6-2.3) 12/25/24 04:43
Triglycerides 34 mg/dl (10-149) 12/21/24 05:27
LDL Cholesterol, Calc 40 mg/dl 12/21/24 05:27
VLDL Cholesterol, Calc 6 mg/dl (0-30) 12/21/24 05:27
HDL Cholesterol 69 mg/dl 12/21/24 05:27
12/20/24 12/21/24
21:11 05:27
Vwl-G-Aqknpbclhbn Pept 4580 [id number]
Physical Exam
Constitutional: No acute distress
EENT: Anicteric
Cardiovascular: Rhythm & rate is regular and Pedal edema present (tr to 1+)
Respiratory: Respiratory effort normal and Lungs clear to auscul.
GI: Soft and Distention absent
Neuro/Psych: Alert
Data Reviewed
-
Date of Service: December 26, 2024
[2024-12-26] MEDS: NOVOLOG FLEXPEN-LOW RESISTANCE 2 UNITS SC (12:27)
[2024-12-26 12:32] LABS: B.E. 5.6 mmol/L; HCO3 32.4 mmol/L (21-28); O2 Saturation % 98.5 % (94-98); PCO2 60 mmHg (35-48); PO2 87 mmHg (83-108)
[2024-12-26 12:32] LABS: Glucose - Point of Care 208 mg/dl (70-99)
--- NOTE | 2024-12-26 14:04 | W.PN.HOSP.TC ---
Today's Communication/Plan
-
cont LAsix
BiPAP nightly - RN informed
Concern for afib on tele - cardio
repat labs
US RUQ
Assessment / Plan
Assessment / Plan
64yo M with PMHx of DM, obesity, CAD s/p CABG on 11/15/24 brought in by his brother with somnolence, weight gain and SOB, managed for CHF exacernation and hypercapnia and AMS 2/2 hypercapnia
A/P:
#Acute hypercarbic respiratory failure 2/2 diastolic CHF exacerbation and CHRIS
Echo: EF 65%, moderate MR, mild/moderate TR
LAsix, daily weight, follow Cr and electrolytes
Cardio follows
#Acute metabolic encephalopathy
2/2 hypercarbia
Nightly BiPAP
#Anemia
anemia w/u
check FOBT
follow CBC
#DM type 2 with hypoglycemia
No plan for SGLT-2 inh in view of hypoglycemia
Accuchecks, Insulin SS, and DM deit
#NSVT
#Concern for paroxysmal Afib
BB
telemetry
cardio
#Elevated Cr, GARY on admission on CKD (unknown)
unclear baselne
follow Cr
#Hyperkalemia
most liely 2/2 hypercarbia
Avoid Aldactone, ACEi/ARB
#Aspiration pneumonia
On unasyn - leukocytosis improved
#ALk phos elevation on admision
#Elevated ALT
follow LFT
check US RUQ
#obesity
BMI 37.5
decrease calorie intake
DVT ppx hep
Full code
I have spent at least 59min reviewing chart, test results, communication with consultants and providing direct patient care
Anticipated Discharge: > 48 hours
Subjective/Interval History
-
Date of Service: December 26, 2024
Objective Data
-
Labs:
Laboratory Results
12/26/24 12/26/24
05:48 12:19
WBC 8.3
Hgb 8.5 L
Hct 27.7 L
Plt Count 223
HCO3 32.4 H
Sodium 136
Potassium 5.2 H
Chloride 102
Carbon Dioxide 32 H
BUN 55 H
Creatinine 1.8 H
Glucose 160 H
Calcium 8.7
Vital Signs:
Vital Signs
Temp Pulse Resp BP Pulse Ox
98.5 F 92 15 123/86 98
12/26/24 07:39 12/26/24 12:00 12/26/24 12:00 12/26/24 10:16 12/26/24 10:00
I&O
12/25/24 12/26/24 12/27/24
06:59 06:59 06:59
Intake Total 320 / 320 1200 / 1200
Output Total 2900 / 2900 1150 / 1150
Balance -2580 / -2580 50 / 50
Review of Systems
-
Unable to obtain full review of systems at this time due to: Acuity
History Source: Patient
Physical Exam
-
General: No Apparent Distress
Respiratory: Negative Wheezes or Crackles
GI: Soft, Nontender and Nondistended
Genito-urinary: No Costovertebral Tender
Musculoskeletal: No Clubbing, No Cyanosis, Edema, Right Lower Extrem and Edema, Left Lower Extrem
Neuro: Sedated
--- NOTE | 2024-12-26 14:41 | PTCARENOTE ---
report given to 4w RN. Pt to be transferred via wheelchair w/ all belongings.
[2024-12-26 17:13] LABS: Glucose - Point of Care 164 mg/dl (70-99)
[2024-12-26] MEDS: NOVOLOG FLEXPEN-LOW RESISTANCE 1 UNITS SC (17:16)
[2024-12-26 21:12] LABS: Glucose - Point of Care 247 mg/dl (70-99)
[2024-12-26] MEDS: DESYREL 50 MG PO (22:06)
[2024-12-27] VITALS (8 sets, daily range): BP systolic 135–155; BP diastolic 56–80; PULSE 2–68
[2024-12-27] MEDS: UNASYN IV ×4 (05:30→23:34)
[2024-12-27 06:04] LABS: Glucose - Point of Care 164 mg/dl (70-99)
[2024-12-27] MEDS: NOVOLOG FLEXPEN-LOW RESISTANCE 1 UNITS SC ×2 (06:14→17:06)
--- NOTE | 2024-12-27 06:59 | PTCARENOTE ---
Patient refused multiple attempts of trying to put on there Bipap
[2024-12-27 07:20] LABS: Hematocrit 26.7 % (39.0-52.0); Hemoglobin 8.1 g/dL (13.0-18.0); Mean Corp Hgb Conc. 30.3 g/dL (33.0-37.0); Mean Corpuscular Volume 82.4 fL (80.0-94.0); Nucleated Red Blood Cells % 0 % (-); Platelet Count 192 10^3/uL (130-400); Red Cell Dist. Width 20.1 % (11.5-14.5); Reticulocyte Count 2.7 % (0.4-2.8)
[2024-12-27] MEDS: LOW STRENGTH ASPIRIN 81 MG PO (07:45)
[2024-12-27] MEDS: TOPROL XL 50 MG PO ×2 (07:46→20:17)
[2024-12-27] MEDS: NEURONTIN 100 MG PO ×2 (07:46→20:17)
[2024-12-27] MEDS: FLOMAX 0.4 MG PO (07:46)
[2024-12-27] MEDS: PROTONIX 40 MG PO (07:46)
[2024-12-27] MEDS: LASIX 80 MG PO ×2 (07:46→16:16)
[2024-12-27] MEDS: HEPARIN 5000 UNITS SC ×3 (07:47→23:34)
[2024-12-27 07:52] LABS: ALT (SGPT) 81 U/L (0-50); AST (SGOT) 44 U/L (17-59); Albumin 3.2 g/dl (3.5-5.0); Alkaline Phosphatase 226 U/L (38-126); Blood Urea Nitrogen 48 mg/dl (9-20); Calcium 8.6 mg/dl (8.4-10.2); Carbon Dioxide 33 mmol/L (22-30); Chloride 101 mmol/L (98-107); Estimated Creatinine Clearance 47 ml/min; Glucose 139 mg/dl (70-99); Iron 53 ug/dl (49-181); Potassium 4.8 mmol/L (3.5-5.1); Sodium 138 mmol/L (135-145); Total Protein 5.4 g/dl (6.3-8.2); eGFR 41.77
[2024-12-27 08:02] LABS: Total Iron Binding Capacity 211 ug/dl (261-462)
[2024-12-27 08:15] LABS: Ferritin 214.0 ng/ml (17.9-464.0)
[2024-12-27 08:47] LABS: Folate 9.2 ng/ml (2.76-20); Vitamin B12 567 pg/ml (239-931)
--- NOTE | 2024-12-27 10:47 | W.PN.HOSP.TC ---
Today's Communication/Plan
-
cont diuresis
check LDH
Pulm consult
cont attempts for BiPAP
Assessment / Plan
Assessment / Plan
64yo M with PMHx of DM, obesity, CAD s/p CABG on 11/15/24 brought in by his brother with somnolence, weight gain and SOB, managed for CHF exacerbation and hypercapnia and AMS 2/2 hypercapnia and cannot exclude hypoglycemic encephalopathy
As per brother - patient had 5 days a week job in [place] before his CABG in October, after the surgery he had decline with worsening cognition and lethargy most ikely 2/2 non-compliance with CPAP. He was recommended CPAP years ago, but did not use it
and usually spent all his weekend sleeping.
A/P:
#Acute hypercarbic respiratory failure 2/2 diastolic CHF exacerbation and CHRIS
Echo: EF 65%, moderate MR, mild/moderate TR
LAsix, daily weight, follow Cr and electrolytes
Cardio follows: cont diuresis
Pulm consult
BiPAP but patient is declining
#Acute metabolic encephalopathy
2/2 hypercarbia and hypoglycemia
no good options due to non-compliance with BiPAP as well as cannot exclude hypoglycemic encephalopathy, that can prolonged efect even with no further hypoglycemia episodes
#Anemia of chronic disease
check FOBT - RN notified
follow CBC
#DM type 2 with hypoglycemia at home
No plan for SGLT-2 inh in view of hypoglycemia
AccuCheck, Insulin SS, and DM diet
#NSVT
#Concern for paroxysmal Afib
BB
telemetry
cardio
#Elevated Cr, GARY on admission on CKD (unknown)
unclear baselne
follow Cr
#Hyperkalemia
most likely 2/2 hypercarbia
Avoid Aldactone, ACEi/ARB
#Aspiration pneumonia
On unasyn - leukocytosis improved
#ALk phos elevation on admission
#Elevated ALT
follow LFT
US RUQ incomplete, but no signs of cholecystitis
#obesity
BMI 37.5
decrease calorie intake
DVT ppx hep
Full code
I have spent at least 59min reviewing chart, test results, communication with consultants and providing direct patient care
Anticipated Discharge: > 48 hours
Subjective/Interval History
-
Date of Service: December 27, 2024
Objective Data
-
Labs:
Laboratory Results
12/27/24
06:46
WBC 7.3
Hgb 8.1 L
Hct 26.7 L
Plt Count 192
Sodium 138
Potassium 4.8
Chloride 101
Carbon Dioxide 33 H
BUN 48 H
Creatinine 1.8 H
Glucose 139 H
Calcium 8.6
Total Bilirubin 0.4
AST 44
ALT 81 H
Alkaline Phosphatase 226 H
Vital Signs:
Vital Signs
Temp Pulse Resp BP Pulse Ox
98.7 F 73 18 155/80 94
12/27/24 07:00 12/27/24 07:00 12/27/24 07:00 12/27/24 07:00 12/27/24 07:00
I&O
12/26/24 12/27/24 12/28/24
06:59 06:59 06:59
Intake Total 1200 / 1200 480 / 480
Output Total 1150 / 1150 400 / 400
Balance 50 / 50 80 / 80
--- NOTE | 2024-12-27 11:05 | RESPNOTE ---
received a call from nurse to evaluate this pt for lethargy.pt had been refusing bipap for the past 2 nights.
pt placed on bipap as ordered by the physician with settings of 15/5 with 4L 02 bleed in. seem to be tolerating it well at this time.
[2024-12-27] MEDS: CYMBALTA DELAYED RELEASE 20 MG PO (11:35)
[2024-12-27 11:47] LABS: Glucose - Point of Care 224 mg/dl (70-99)
[2024-12-27] MEDS: NOVOLOG FLEXPEN-LOW RESISTANCE 2 UNITS SC (11:54)
--- NOTE | 2024-12-27 12:17 | CON.PUL ---
Consultation
Consultation Request
Date/Time Consultation Requested: 12/27/24
Date/Time Consultation Performed: 12/27/24
Performing Provider: Ilana
Reason for Consultation: CHRIS/OHS
Medical History
-
History of Present Illness:
Patient is a 64-year-old male with previous history of diabetes, obesity, CHRIS not on CPAP, CAD complaining of shortness of breath and weight gain. Patient was notably somnolent on arrival, he is noted by family to be sleepy and lethargic most days.
He had recently undergone CABG at a hospital in [place] on 11/15/2024. Since then he apparently gained 10 pounds and had become more short of breath with activity. ABG completed on admission demonstrating acute on chronic hypercarbia. He has a
history of CHRIS but is noncompliant with CPAP. He has had with waxing and waning mental status since admission 12/20/2024. He has been intermittently refusing PAP as well.
Past Medical History
Past Medical History: Other (see list below)
Social History
Tobacco: Non-smoker
Alcohol: None
Drug: None
Family History
Family History: Reviewed & Not Pertinent
Allergies / Home Medications
Allergies
Allergy/AdvReac Type Severity Reaction Status Date / Time
No Known Allergies Allergy Verified 12/20/24 19:34
Home Medications
�Medication �Instructions �Recorded �Confirmed �Last Taken �Type
gabapentin 100 mg capsule 100 mg PO BID Pain 12/20/24 12/20/24 Unknown History
insulin glargine 100 unit/mL (3 12 unit SC DAILY Diabetes 12/20/24 12/20/24 Unknown History
mL) subcutaneous pen
lidocaine 4 % topical patch 1 patch topical DAILY PRN pain 12/20/24 12/20/24 Unknown History
(Lidocaine Pain Relief)
metoprolol tartrate 37.5 mg tablet 37.5 mg PO BID Heart Failure 12/20/24 12/20/24 Unknown History
pantoprazole 40 mg tablet,delayed 40 mg PO DAILY Gastrointestinal 12/20/24 12/20/24 Unknown History
release Issue
tamsulosin 0.4 mg capsule 0.4 mg PO DAILY Urinary Issue 12/20/24 12/20/24 Unknown History
trazodone 50 mg tablet 50 mg PO HS Sleep 12/20/24 12/20/24 Unknown History
Review of Systems
-
History Source: Family
All other systems: Negative unless noted
Vitals / Labs / Diagnostic Testing
Vital Signs
Temp Pulse Resp BP Pulse Ox
97.1 F 69 15 149/66 100
12/27/24 11:30 12/27/24 11:30 12/27/24 11:30 12/27/24 11:30 12/27/24 11:30
Lab Data
12/27/24 06:46
12/27/24 06:46
Laboratory Results
12/26/24
12:19
pH 7.34 L
pCO2 60 H
pO2 87
HCO3 32.4 H
O2 Delivery Level Not Reportable
Microbiology
12/23/24 21:56 Blood/Venous Blood Culture - Preliminary
No Growth in 72 hours- Final report to follow
12/23/24 18:07 Blood/Venous Blood Culture - Preliminary
No Growth in 72 hours- Final report to follow
12/21/24 11:34 Blood/Venous Blood Culture - Final
No Growth - Final Report
12/21/24 11:26 Blood/Venous Blood Culture - Final
No Growth - Final Report
Diagnostic Testing:
Physical Exam
-
HEENT: Normocephalic, Anicteric and Moist Mucous Membranes
Cardiovascular: S1/S2, Regular Rhythm and Peripheral Edema (2+)
Respiratory: Clear and Non-Labored Respirations
GI: Soft, Non Distended and Non Tender
Neurology: Other (asleep)
Skin: Warm, Dry and Good Color
General: Comfortable and Other (NAD)
Assessment
-
Patient is a 64-year-old male with previous history of diabetes, obesity, CHRIS not on CPAP, CAD complaining of shortness of breath and weight gain. Patient was notably somnolent on arrival, he is noted by family to be sleepy and lethargic most days.
He had recently undergone CABG at a hospital in [place] on 11/15/2024. Since then he apparently gained 10 pounds and had become more short of breath with activity. ABG completed on admission demonstrating acute on chronic hypercarbia. He has a
history of CHRIS but is noncompliant with CPAP. He has had with waxing and waning mental status since admission 12/20/2024. He has been intermittently refusing PAP as well. We are consulted for hypercarbia management.
Acute on chronic hypercarbic respiratory failure on BiPAP
Medical noncompliance
Waxing/waning mental status
Anemia
GARY
Hyperglycemia
Conditions present prior to admission
Obesity
CHRIS not on CPAP, noncompliant
Diabetes
Hypertension
ASCVD
TIA / CVA
Carotid Stenosis
CHF
CABG x 3 (11/15/24 - [place], [place])
Bilateral BOOM
Carotid Stent
Plan
Currently above 90% on 1 L currently saturating, he is maintained on 4 L with BiPAP use at night
Home O2 evaluation eventually
Prior history of lung disease is noted including CHRIS with suspected OHS
He has medical noncompliance to CPAP therapy, was told as an outpatient to undergo sleep study but refused
He has had waxing and waning mental status suspected from hypercarbia status but no prior HCT was performed
Suspect patient has some component of hypercarbia causing mental status changes but this has been compensated
Though he has been intermittently refusing PAP therapy and sleeping during the day
We will also obtain an HCT to rule out any other neurologic contribution
CXR/CT obtained indicating pulmonary edema
There is likely a component of heart failure, proBNP 3960 on admission
He is maintained on p.o. Lasix twice daily
Prior ECHO results are reviewed indicating normal function, mild to moderate valvular heart disease
Weight loss measures recommended
Obesity likely contributing to respiratory symptoms
Will need outpatient pulmonary evaluation in our office for PFTs and 6MWT
Reviewed with patient
Risk factors assessed for underlying sleep disordered breathing also noted, recommend outpatient PSG/sleep evaluation
We will follow
Diagnostic Data
Chest X-Ray: 12/23/24-Findings suggesting pulmonary edema with cardiomegaly.
12/20/24-Moderate elevation of the right hemidiaphragm. Findings suggesting interstitial pulmonary edema pattern with small bilateral pleural effusions.
CT Scan:
Echo: 12/21/24- 1. Normal left ventricular size and systolic function. Ejection fraction is 60-65%.
2. Moderate mitral regurgitation.
3. Mild/moderate tricuspid regurgitation. Estimated pulmonary artery pressure of 39 mmHg assuming a right atrial pressure of 8 mmHg. Mildly elevated PASP.
4. No prior study available for comparison.
PFT's:
Reports and relevant images were personally reviewed.
Total time spent on this consultation __55__ minutes which includes review of history, physical exam, medications, laboratory data, personal review of imaging, extensive review of outpatient records, discussion with care team and respiratory therapy.
[2024-12-27 13:52] LABS: LDH 211 U/L (120-246)
--- NOTE | 2024-12-27 16:07 | W.PN.CD ---
Today's Communication / Plan
-
- Will likely add Eliquis and up rate control meds in next few days
- Decrease Lasix to daily
- He was too sleepy to educate about AFib and anticoagulation
- Treatment of suspected OHS and suspected sleep apnea and obesity will be important
Impression / Plan
-
Acute on chronic HFPEF
- Improved. admit weight 103/105.5 on 12/20-.
- weights:
admit 103-105.4 kg
12/25/2024: 97.4 kg
12/26/2024: 100 kg
12/27/2024: 100 kg
- Edema improved, still trace to 1+
- Moved from IV 60 BID => Lasix 80 mg PO BID started 12/26/2024 => will back off to once a day to decrease contracture alkalosis
- watch weight/edema
- Avoiding SGLT2-I for now given presentation with hypoglycemia
- Avoiding Aldactone for now due to hyperkalemia.
Highly suspected Obesity Hypoventilation Syndrome, likely with sleep apnea and obesity contributing
- Pulmonary now involved
PAF
- In last 24 hours we have seen PAF with V rates 110-120
- Multiple paroxysms, lasting up to about 90 min
- For now will observe
- Will likely add Eliquis and up rate control meds
CAD with recent hx CABG:
-continue ASA and BID Metoprolol
Statin, LDL is 40 so for now no statin
NSVT => just beta sarah
Confusion/lethargy => improved
Hypoglycemia => improved, hard to want to use SGLT2-I until we know his DM is better w/o hypoglycemia
Renal insuf, ? GARY on CKD
Anemia
Subjective: Denies CP or dyspnea. Sitting up and comfortable.
Data: Echo 12/21: EF 60-65%, mod MR, mild/mod TR, PASP 39
Physical Exam
Vital Signs/Labs
Vital Signs
Temp Pulse Resp BP Pulse Ox
97.1 F 69 15 149/66 100
12/27/24 11:30 12/27/24 11:30 12/27/24 11:30 12/27/24 11:30 12/27/24 11:30
12/26/24 12/27/24 12/28/24
06:59 06:59 06:59
Actual Weight 100 kg
12/27/24 06:46
12/27/24 06:46
Magnesium 1.9 mg/dl (1.6-2.3) 12/25/24 04:43
Triglycerides 34 mg/dl (10-149) 12/21/24 05:27
LDL Cholesterol, Calc 40 mg/dl 12/21/24 05:27
VLDL Cholesterol, Calc 6 mg/dl (0-30) 12/21/24 05:27
HDL Cholesterol 69 mg/dl 12/21/24 05:27
12/20/24 12/21/24
21:11 05:27
[id number] Pept 4580 3960
Physical Exam
Constitutional: No acute distress
EENT: Anicteric
Cardiovascular: Rhythm & rate is regular and Pedal edema present (tr)
Respiratory: Respiratory effort normal
GI: Soft
Data Reviewed
-
Date of Service: December 27, 2024
[2024-12-27 17:02] LABS: Glucose - Point of Care 190 mg/dl (70-99)
[2024-12-27] MEDS: DESYREL PO (22:52)
[2024-12-27] MEDS: LIDOCAINE 4% PATCH TOPICAL (22:52)
[2024-12-28] VITALS (9 sets, daily range): BP systolic 104–170; BP diastolic 56–68; PULSE 2–68; O2SAT 95; BMI 35.2
[2024-12-28 02:08] LABS: Glucose - Point of Care 236 mg/dl (70-99)
[2024-12-28] MEDS: UNASYN IV ×4 (06:12→23:59)
[2024-12-28 08:03] LABS: Hematocrit 27.2 % (39.0-52.0); Hemoglobin 8.0 g/dL (13.0-18.0)
[2024-12-28 08:11] LABS: Glucose - Point of Care 157 mg/dl (70-99)
[2024-12-28] MEDS: NOVOLOG FLEXPEN-LOW RESISTANCE 1 UNITS SC ×2 (08:43→17:02)
[2024-12-28] MEDS: CYMBALTA DELAYED RELEASE 20 MG PO (08:44)
[2024-12-28] MEDS: FLOMAX 0.4 MG PO (08:44)
[2024-12-28] MEDS: HEPARIN 5000 UNITS SC ×3 (08:44→23:58)
[2024-12-28] MEDS: LASIX 80 MG PO (08:45)
[2024-12-28] MEDS: LOW STRENGTH ASPIRIN 81 MG PO (08:45)
[2024-12-28] MEDS: LIDOCAINE 4% PATCH 1 PATCH TOPICAL (08:45)
[2024-12-28] MEDS: PROTONIX 40 MG PO (08:46)
[2024-12-28] MEDS: NEURONTIN 100 MG PO (08:46)
[2024-12-28] MEDS: TOPROL XL 50 MG PO ×2 (08:46→22:08)
[2024-12-28 08:48] LABS: ALT (SGPT) 85 U/L (0-50); AST (SGOT) 42 U/L (17-59); Albumin 3.0 g/dl (3.5-5.0); Alkaline Phosphatase 238 U/L (38-126); Blood Urea Nitrogen 49 mg/dl (9-20); Calcium 8.7 mg/dl (8.4-10.2); Carbon Dioxide 33 mmol/L (22-30); Chloride 103 mmol/L (98-107); Estimated Creatinine Clearance 44 ml/min; Glucose 148 mg/dl (70-99); Magnesium 2.1 mg/dl (1.6-2.3); Potassium 5.0 mmol/L (3.5-5.1); Sodium 139 mmol/L (135-145); Total Protein 5.4 g/dl (6.3-8.2); eGFR 39.15
--- NOTE | 2024-12-28 09:20 | W.PN.HOSP.TC ---
Today's Communication/Plan
-
cont Bipap
Neuro consult
VBG in AM
Assessment / Plan
Assessment / Plan
64yo M with PMHx of DM, obesity, CAD s/p CABG on 11/15/24 brought in by his brother with somnolence, weight gain and SOB, managed for CHF exacerbation and hypercapnia and AMS 2/2 hypercapnia and cannot exclude hypoglycemic encephalopathy
As per brother - patient had 5 days a week job in [place] before his CABG in October, after the surgery he had decline with worsening cognition and lethargy most ikely 2/2 non-compliance with CPAP. He was recommended CPAP years ago, but did not use it
and usually spent all his weekend sleeping.
A/P:
#Acute hypoxic hypercarbic respiratory failure 2/2 diastolic CHF exacerbation and CHRIS
Echo: EF 65%, moderate MR, mild/moderate TR
LAsix, daily weight, follow Cr and electrolytes
Cardio follows: cont diuresis
Pulm consult
BiPAP but patient is declining
#Acute metabolic encephalopathy
2/2 hypercarbia and hypoglycemia
no good options due to non-compliance with BiPAP as well as cannot exclude hypoglycemic encephalopathy, that can prolonged effect even with no further hypoglycemia episodes
Head CT
Neuro consult: stop Neurontin
#Anemia of chronic disease
check FOBT - RN notified
follow CBC
LDH WNL - no concern for hemolysis
#DM type 2 with hypoglycemia at home
No plan for SGLT-2 inh in view of hypoglycemia
AccuCheck, Insulin SS, and DM diet
#NSVT
#Concern for paroxysmal Afib
BB
telemetry
cardio
#Elevated Cr, GARY on admission on CKD (unknown)
unclear baselne
follow Cr
#Hyperkalemia
most likely 2/2 hypercarbia
Avoid Aldactone, ACEi/ARB
#Aspiration pneumonia
On unasyn - leukocytosis improved
#ALk phos elevation on admission
#Elevated ALT
follow LFT
US RUQ incomplete, but no signs of cholecystitis
#obesity
BMI 37.5
decrease calorie intake
DVT ppx hep
Full code
I have spent at least 51min reviewing chart, test results, communication with consultants and providing direct patient care
Anticipated Discharge: > 48 hours
Subjective/Interval History
-
Date of Service: December 28, 2024
Objective Data
-
Labs:
Laboratory Results
12/28/24
06:47
Hgb 8.0 L
Hct 27.2 L
Sodium 139
Potassium 5.0
Chloride 103
Carbon Dioxide 33 H
BUN 49 H
Creatinine 1.9 H
Glucose 148 H
Calcium 8.7
Total Bilirubin 0.4
AST 42
ALT 85 H
Alkaline Phosphatase 238 H
Vital Signs:
Vital Signs
Temp Pulse Resp BP Pulse Ox
98.0 F 65 20 170/67 100
12/28/24 07:47 12/28/24 07:47 12/28/24 07:47 12/28/24 07:47 12/28/24 07:47
I&O
12/27/24 12/28/24 12/29/24
06:59 06:59 06:59
Intake Total 480 / 480 480 / 480
Output Total 400 / 400 1275 / 1275
Balance 80 / 80 -795 / -795
Review of Systems
-
Unable to obtain full review of systems at this time due to: Dementia and Acuity
History Source: Patient
Physical Exam
-
General: No Apparent Distress
HEENT: Normocephalic and Moist Mucous Membranes
Respiratory: Clear to Auscultation
Cardiac: Regular Rhythm
GI: Soft, Nontender and Nondistended
Musculoskeletal: No Clubbing, No Cyanosis and No Edema
Neuro: Sedated
Psych: Calm
--- NOTE | 2024-12-28 12:09 | CON.NEURO ---
Neuro Assessment/Plan
Assessment
Change in mental status initially thought to be due to toxic metabolic encephalopathy in a patient who has been noncompliant with obstructive sleep apnea treatment.
Differential diagnosis remains toxic metabolic encephalopathy, as well as stroke although the patient does not have multiple risk factors for stroke other than diabetes and CHF
Plan
Agree with CAT scan of head
Check blood work for potential metabolic causes
Provide Thiamine
Continue to provide BiPAP
Speech therapy evaluation for cognitive assessment
Consider further evaluation including lumbar puncture if the patient does not have significant improvement as well as MRI of the brain
Will follow
Consultation
Order
Date of Consultation: 12/28/24
Requesting Provider: Hospitalists
Reason for Consult: Change in mental status
Subjective/Objective
Subjective Data
Date of Service: December 28, 2024
Right handed
Patient presented to this hospital's emergency department with difficulty with breathing on December 20, 2024. The patient himself is not able to provide his own medical history. According to past medical history as recorded in the chart, the
patient himself had recently undergone coronary artery bypass surgery November 15, 2024 and the patient presented with being fluid overloaded. Subsequently, the patient was decided to have some somnolence due to toxic metabolic changes and acute CHF.
His mental status was described as improved although the patient was described as needing haloperidol routinely.
According to the record, the patient was diagnosed as having obstructive sleep apnea and was noncompliant with the use of positive airway pressure mask and machine. No known modifying factors.
Objective Data
Vital Signs
Temp Pulse Resp BP Pulse Ox
36.7 C 65 20 170/67 100
12/28/24 07:47 12/28/24 07:47 12/28/24 07:47 12/28/24 07:47 12/28/24 07:47
Lab Results
12/28/24 06:47
12/28/24 06:47
Sodium 139 mmol/L (135-145) 12/28/24 06:47
Potassium 5.0 mmol/L (3.5-5.1) 12/28/24 06:47
BUN 49 mg/dl (9-20) H 12/28/24 06:47
Glucose 148 mg/dl (70-99) H 12/28/24 06:47
Calcium 8.7 mg/dl (8.4-10.2) 12/28/24 06:47
Phosphorus 4.8 mg/dl (2.5-4.5) H 12/21/24 05:27
Wmc-K-Rexypukytkp Pept 3960 pg/ml 12/21/24 05:27
LDL Cholesterol, Calc 40 mg/dl 12/21/24 05:27
Vitamin B12 567 pg/ml (239-931) 12/27/24 06:46
Patient Allergies
No Known Allergies Allergy (Verified 12/20/24 19:34)
Review of Systems
-
Unable to obtain full review of systems at this time due to: Other (Confusion)
History Source: Patient
All other systems: Reviewed and negative
EENT: Negative Swallowing Difficulty
Respiratory: Negative Trouble Breathing
Cardiac: Negative Chest Pain
Neuro: Negative Dizzy or Headache
Physical Exam
-
General: No Apparent Distress, Appears Stated Age and Wearing Oxygen
Eyes: OU Absent Papilledema, Round OU, [place] Conjunctivae and No Ptosis
HEENT: Anicteric and Moist Mucous Membranes
Neck: Full Range of Motion
Respiratory: No Dyspnea
Cardiac: No JVD
GI: Non-distended
Skin: Unremarkable
Extremities: No Clubbing, No Cyanosis and No Edema
Psych: Negative Intact Judgement/Insight
Extended Neurological Exam
Mood & Affect: Negative Affect Unremarkable (Irritable)
Attention Span & Concentration: Awake, Alert, Interactive and Moderate Difficulty with 2 Step Request
Memory: Unremarkable
Tremor: Hand Tremor Absent and Head Tremor Absent
Speech: Quality Unremarkable and Mildly Reduced Output
Cranial Nerve II: Left Eye: Pupillary Reactivity Unremarkable, Pupillary Size Unremarkable and Visual Asencio Intact
Cranial Nerve II: Right Eye: Pupillary Reactivity Unremarkable, Pupillary Size Unremarkable and Visual Asencio Intact
Cranial Nerves III, IV, : Extraocular Movement: Extraocular Movement Full in all Directions
Cranial Nerve VII: Facial Symmetry: Normal Facial Symmetry
Cranial Nerve VIII: Hearing: Grossly Reduced; Negative Unremarkable Hearing to Normal Conversational Volume
Cranial Nerves IX, X: Palate Movement: Palate Elevation Symmetric
Cranial Nerve XI: Shoulder Shrug: Unremarkable
Cranial Nerve XII: Tongue Protusion: Midline
Muscle Strength, Overall: Full Throughout
Muscle Bulk & Tone: Bulk Unremarkable and Tone Unremarkable
Pronator Drift: No Drift in Upper Extremities and No Drift in Lower Extremities
Deep Tendon Reflexes: Trace Throughout
Touch Sensation: Unremarkable
Coordination: [id number] Testing Unremarkable
Babinski Sign: Absent Bilaterally
Data Reviewed
-
Reviewed with: Physician and Patient
Old Records: Summarized
Medications
-
Active Medications
Generic Name Dose Route Start Last Admin
Trade Name Freq PRN Reason Stop Dose Admin
Acetaminophen 650 mg 12/21/24 00:55 12/25/24 10:04
Acetaminophen 325 Mg Tablet PO 01/18/25 00:54 650 mg
On Hold: 12/25/24 17:30 Q4HPRN PRN Administration
Mild Pain / Temp > 101
Aspirin 81 mg 12/21/24 08:00 12/28/24 08:45
Aspirin 81 Mg Chewable Tablet PO 01/18/25 07:59 81 mg
DAILY AMANDA Administration
Dextrose 12.5 grams 12/20/24 23:52 12/22/24 01:18
Dextrose 50% (0.5 Grams/Ml) 50 Ml Syringe IV 01/17/25 23:51 12.5 grams
[id number] PRN Administration
hypoglycemia
Protocol
Duloxetine HCl 20 mg 12/27/24 11:00 12/28/24 08:44
Duloxetine Delayed Release 20 Mg Capsule PO 01/24/25 10:59 20 mg
DAILY AMANDA Administration
Furosemide 80 mg 12/28/24 08:00 12/28/24 08:45
Furosemide 80 Mg Tablet PO 01/25/25 07:59 80 mg
DAILY AMANDA Administration
Gabapentin 100 mg 12/22/24 11:00 12/28/24 08:46
Gabapentin 100 Mg Capsule PO 01/19/25 10:59 100 mg
On Hold: 12/28/24 09:17 BID AMANDA Administration
Resume: 12/31/24 08:00
Glucagon 1 mg 12/20/24 23:52 12/21/24 09:29
Glucagon 1 Mg Vial IM 01/17/25 23:51 1 mg
PRN PRN Administration
hypoglycemia
Protocol
Heparin Sodium 5,000 units 12/22/24 16:00 12/28/24 08:44
Heparin 5,000 Units/Ml 1 Ml Vial SC 01/19/25 15:59 5,000 units
Q8 AMANDA Administration
Ampicillin Sodium/Sulbactam 60 mls @ 120 mls/hr 12/24/24 05:00 12/28/24 10:01
Sodium 1.5 gm/ Sodium Chloride IV 60 mls
Q6H AMANDA Administration
Insulin Aspart 0 units 12/27/24 12:00 12/28/24 08:43
Insulin Aspart Low Resistance 300 Units/3 Ml Pen.Injctr SC 01/24/25 11:59 1 units
AC AMANDA Administration
Protocol
Lidocaine 1 patch 12/27/24 20:35 12/28/24 08:45
Lidocaine 4% Topical Patch TOPICAL 01/24/25 20:34 1 patch
DAILY AMANDA Administration
Protocol
Metoprolol Succinate 50 mg 12/24/24 20:00 12/28/24 08:46
Metoprolol 50 Mg Extended Release Tablet PO 01/21/25 19:59 50 mg
BID AMANDA Administration
Pantoprazole Sodium 40 mg 12/21/24 08:00 12/28/24 08:46
Pantoprazole 40 Mg Delayed Release Tablet PO 01/18/25 07:59 40 mg
DAILY AMANDA Administration
Patch Removal 0 patch 12/28/24 20:00
Remove Lidocaine Patch REMOVE 01/25/25 19:59
DAILY@2000 AMANDA
Sodium Chloride 0 flush 12/20/24 23:00
Sodium Chloride 0.9% (Flush) Syringe IV 01/17/25 22:59
PER PROTOCOL AMANDA
Tamsulosin HCl 0.4 mg 12/21/24 08:00 12/28/24 08:44
Tamsulosin 0.4 Mg Capsule PO 01/18/25 07:59 0.4 mg
DAILY AMANDA Administration
Trazodone HCl 50 mg 12/22/24 22:00 12/27/24 22:52
Trazodone 50 Mg Tablet PO 01/19/25 21:59 Not Given
HS AMANDA
Home Medications
�Medication �Instructions �Recorded
gabapentin 100 mg capsule 100 mg PO BID Pain 12/20/24
insulin glargine 100 unit/mL (3 12 unit SC DAILY Diabetes 12/20/24
mL) subcutaneous pen
lidocaine 4 % topical patch 1 patch topical DAILY PRN pain 12/20/24
(Lidocaine Pain Relief)
metoprolol tartrate 37.5 mg tablet 37.5 mg PO BID Heart Failure 12/20/24
pantoprazole 40 mg tablet,delayed 40 mg PO DAILY Gastrointestinal 12/20/24
release Issue
tamsulosin 0.4 mg capsule 0.4 mg PO DAILY Urinary Issue 12/20/24
trazodone 50 mg tablet 50 mg PO HS Sleep 12/20/24
Past History
Past History
ED Past Medical History: CAD and HTN
ED Past Surgical History: Cardiac
Family History
Family History: CAD
[2024-12-28 12:11] LABS: Glucose - Point of Care 244 mg/dl (70-99)
[2024-12-28] MEDS: NOVOLOG FLEXPEN-LOW RESISTANCE 2 UNITS SC (12:20)
--- NOTE | 2024-12-28 13:07 | W.PN.PUL3 ---
Today's Communication / Plan
-
Intermittently compliant with PAP
He does not participate in meaningful discussions regarding PAP compliance or treatment
HCT negative, may consider neuropsych evaluation
Assessment
-
Patient is a 64-year-old male with previous history of diabetes, obesity, CHRIS not on CPAP, CAD complaining of shortness of breath and weight gain. Patient was notably somnolent on arrival, he is noted by family to be sleepy and lethargic most days.
He had recently undergone CABG at a hospital in [place] on 11/15/2024. Since then he apparently gained 10 pounds and had become more short of breath with activity. ABG completed on admission demonstrating acute on chronic hypercarbia. He has a
history of CHRIS but is noncompliant with CPAP. He has had with waxing and waning mental status since admission 12/20/2024. He has been intermittently refusing PAP as well. We are consulted for hypercarbia management.
Acute on chronic hypercarbic respiratory failure on BiPAP
Medical noncompliance
Waxing/waning mental status
Anemia
GARY
Hyperglycemia
Conditions present prior to admission
Obesity
CHRIS not on CPAP, noncompliant
Diabetes
Hypertension
ASCVD
TIA / CVA
Carotid Stenosis
CHF
CABG x 3 (11/15/24 - [place], [place])
Bilateral BOOM
Carotid Stent
Plan
Currently above 90% on 1 L currently saturating, he is maintained on 4 L with BiPAP use at night
Home O2 evaluation eventually
Prior history of lung disease is noted including CHRIS with suspected OHS
He has medical noncompliance to CPAP therapy, was told as an outpatient to undergo sleep study but refused
He has had waxing and waning mental status suspected from hypercarbia status but no prior HCT was performed
Suspect patient has some component of hypercarbia causing mental status changes but this has been compensated
Though he has been intermittently refusing PAP therapy and sleeping during the day
HCT negative
Has ongoing withdrawn symptoms, still has yet to answer me when I speak with him
I cannot assess whether he will be compliant with PAP at all
Consider neuropsych eval
CXR/CT obtained indicating pulmonary edema
There is likely a component of heart failure, proBNP 3960 on admission
He is maintained on p.o. Lasix twice daily
Prior ECHO results are reviewed indicating normal function, mild to moderate valvular heart disease
Weight loss measures recommended
Obesity likely contributing to respiratory symptoms
Will need outpatient pulmonary evaluation in our office for PFTs and 6MWT
Reviewed with patient
Risk factors assessed for underlying sleep disordered breathing also noted, recommend outpatient PSG/sleep evaluation
Diagnostic Data
Chest X-Ray: 12/23/24-Findings suggesting pulmonary edema with cardiomegaly.
12/20/24-Moderate elevation of the right hemidiaphragm. Findings suggesting interstitial pulmonary edema pattern with small bilateral pleural effusions.
CT Scan:
Echo: 12/21/24- 1. Normal left ventricular size and systolic function. Ejection fraction is 60-65%.
2. Moderate mitral regurgitation.
3. Mild/moderate tricuspid regurgitation. Estimated pulmonary artery pressure of 39 mmHg assuming a right atrial pressure of 8 mmHg. Mildly elevated PASP.
4. No prior study available for comparison.
PFT's:
Reports and relevant images were personally reviewed.
Total time spent on this consultation __35__ minutes which includes review of history, physical exam, medications, laboratory data, personal review of imaging, extensive review of outpatient records, discussion with care team and respiratory therapy.
Subjective Data
-
Date of Service:
Date of Service: December 28, 2024
Chief Complaint: Pulmonary Follow Up
Subjective:
No acute events ON, intermittently compliant with bipap
has not spoken to me regarding use
Objective Data
Data Reviewed
Vital Signs / I&O / Oxygen:
Vital Signs
Temp Pulse Resp BP Pulse Ox
99.2 F 68 18 154/62 97
12/28/24 11:50 12/28/24 11:50 12/28/24 11:50 12/28/24 11:50 12/28/24 11:50
Intake and Output
12/27/24 12/28/24 12/29/24
06:59 06:59 06:59
Intake Total 480 / 480 480 / 480
Output Total 400 / 400 1275 / 1275
Balance 80 / 80 -795 / -795
SaO2 97
Nasal Cannula flow liters per 2
minute
Physical Exam
General: Comfortable and Other (NAD)
HEENT: Normocephalic, Anicteric and Moist Mucous Membranes
Cardiovascular: S1-S2 and Regular Rhythm
Respiratory: Clear and Non-Labored Respirations
GI: Soft, Non Distended and Non Tender
Neurology: Awake and Unresponsive (refusing to speak, saying occasional words, not answering questions)
Skin: Warm and Dry
Labs/Micro/Reports
Lab Data
12/28/24 06:47
12/28/24 06:47
Microbiology
12/28/24 10:54 Blood/Venous Blood Parasites Smear - Preliminary
12/23/24 21:56 Blood/Venous Blood Culture - Preliminary
No Growth in 4 days- Final report to follow
12/23/24 18:07 Blood/Venous Blood Culture - Preliminary
No Growth in 4 days- Final report to follow
12/21/24 11:34 Blood/Venous Blood Culture - Final
No Growth - Final Report
12/21/24 11:26 Blood/Venous Blood Culture - Final
No Growth - Final Report
[2024-12-28] MEDS: VITAMIN B1 100 MG PO (13:23)
--- NOTE | 2024-12-28 15:16 | W.PN.CD ---
Today's Communication / Plan
-
Continue current diuretic therapy but monitor renal function closely. If continues to rise may need to hold diuretic
Impression / Plan
-
Acute on chronic HFPEF
- Improved. admit weight 103/105.5 on 12/20-.
- weights:
admit 103-105.4 kg
12/25/2024: 97.4 kg
12/26/2024: 100 kg
12/27/2024: 100 kg
- Edema improved. Some residual mild edema.
- Moved from IV 60 BID => Lasix 80 mg PO BID started 12/26/2024 => admit and change down to Lasix 80 daily.
- watch weight/edema
- Avoiding SGLT2-I for now given presentation with hypoglycemia
- Avoiding Aldactone for now due to hyperkalemia.
Change in mental status. Being assessed. Suspected component of obesity/hypoventilation syndrome. Patient also being assessed for neurology for other causes.
PAF
- In last 24 hours we have seen PAF with V rates 110-120
- Multiple paroxysms, lasting up to about 90 min
- For now will observe
- Will likely add Eliquis if okay from neurology perspective and primary team perspective.
CAD with recent hx CABG:
-continue ASA and BID Metoprolol
Statin, LDL is 40 so for now no statin
NSVT => just beta sarah
Confusion/lethargy => improved. Patient was sleeping when seen he was arousable responding to questions oriented to [facility]. At first when he woke up some of the answers seemed a bit odd but then the longer he was awake his answers
seem to make more sense.
Hypoglycemia => improved, hard to want to use SGLT2-I until we know his DM is better w/o hypoglycemia
Renal insuf, ? GARY on CKD
Anemia
Subjective: Denies CP or dyspnea. Sitting up and comfortable.
Data: Echo 12/21: EF 60-65%, mod MR, mild/mod TR, PASP 39
Physical Exam
Vital Signs/Labs
Vital Signs
Temp Pulse Resp BP Pulse Ox
99.2 F 68 18 154/62 97
12/28/24 11:50 12/28/24 11:50 12/28/24 11:50 12/28/24 11:50 12/28/24 11:50
12/27/24 12/28/24 12/29/24
06:59 06:59 06:59
Actual Weight 98.911 kg
12/28/24 06:47
12/28/24 06:47
Magnesium 2.1 mg/dl (1.6-2.3) 12/28/24 06:47
Triglycerides 34 mg/dl (10-149) 12/21/24 05:27
LDL Cholesterol, Calc 40 mg/dl 12/21/24 05:27
VLDL Cholesterol, Calc 6 mg/dl (0-30) 12/21/24 05:27
HDL Cholesterol 69 mg/dl 12/21/24 05:27
12/20/24 12/21/24
21:11 05:27
Wyp-S-Llihwwleycw Pept 4580 3960
Physical Exam
Constitutional: No acute distress and Other (Sleeping on my arrival but arousable and responding to questions)
Cardiovascular: Rhythm & rate is regular
Respiratory: Wheeze Absent and Rhonchi Absent
GI: Soft
Neuro/Psych: Alert
Data Reviewed
-
Date of Service: December 28, 2024
Medical Decision Making: Reviewed Test Results
Medical Tests (PFT, Pathology etc): Report Reviewed by me
Labs: Labs Reviewed by me
[2024-12-28 16:46] LABS: Glucose - Point of Care 184 mg/dl (70-99)
[2024-12-28 21:31] LABS: Glucose - Point of Care 246 mg/dl (70-99)
[2024-12-28] MEDS: REMOVE LIDOCAINE PATCH 1 PATCH REMOVE (22:08)
[2024-12-28] MEDS: DESYREL PO (22:17)
[2024-12-29] VITALS (8 sets, daily range): BP systolic 114–168; BP diastolic 61–79; PULSE 2; BMI 35.4
[2024-12-29] MEDS: UNASYN IV ×2 (05:39→11:42)
[2024-12-29 07:50] LABS: Venous Blood Gas B.E. 7.2 mmol/L (-4 to +4); Venous Blood Gas O2 Sat % 96.0 %
[2024-12-29 07:54] LABS: Glucose - Point of Care 183 mg/dl (70-99)
[2024-12-29 07:56] LABS: Hematocrit 29.3 % (39.0-52.0); Hemoglobin 8.6 g/dL (13.0-18.0); Mean Corp Hgb Conc. 29.4 g/dL (33.0-37.0); Mean Corpuscular Volume 82.8 fL (80.0-94.0); Nucleated Red Blood Cells % 0 % (-); Platelet Count 220 10^3/uL (130-400); Red Cell Dist. Width 20.0 % (11.5-14.5)
[2024-12-29] MEDS: NOVOLOG FLEXPEN-LOW RESISTANCE 1 UNITS SC (08:39)
[2024-12-29 08:40] LABS: Blood Urea Nitrogen 45 mg/dl (9-20); Calcium 8.5 mg/dl (8.4-10.2); Carbon Dioxide 36 mmol/L (22-30); Chloride 102 mmol/L (98-107); Estimated Creatinine Clearance 44 ml/min; Glucose 171 mg/dl (70-99); Magnesium 2.1 mg/dl (1.6-2.3); Potassium 5.0 mmol/L (3.5-5.1); Sodium 140 mmol/L (135-145); eGFR 39.15
[2024-12-29] MEDS: CYMBALTA DELAYED RELEASE 20 MG PO (08:40)
[2024-12-29] MEDS: HEPARIN 5000 UNITS SC ×2 (08:40→15:07)
[2024-12-29] MEDS: FLOMAX 0.4 MG PO (08:40)
[2024-12-29] MEDS: LASIX 80 MG PO ×2 (08:41→20:09)
[2024-12-29] MEDS: TOPROL XL 50 MG PO ×2 (08:41→20:08)
[2024-12-29] MEDS: VITAMIN B1 100 MG PO (08:41)
[2024-12-29] MEDS: LIDOCAINE 4% PATCH 1 PATCH TOPICAL (08:41)
[2024-12-29] MEDS: PROTONIX 40 MG PO (08:41)
[2024-12-29] MEDS: LOW STRENGTH ASPIRIN 81 MG PO (08:41)
--- NOTE | 2024-12-29 08:42 | W.PN.NEURO.1 ---
Addendum entered and electronically signed by Pradip Dior MD 12/29/24 11:07:
Studies reviewed.
I have personally examined the patient. I reviewed and agree with the SECURITY SUPERVISOR's Note.
My addenda:
Awake, alert, interactive. No acute distress.
Speech intact.
No tremor. Reduced hearing.
Extra-ocular movements grossly intact.
Facial movements full and symmetric. Hearing intact to normal conversational volume.
Normal UE movements bilaterally.
Neck: full ROM.
Chest: no dyspnea
Heart: no JVD
Ext: (-) Clubbing, (-) Cyanosis, (-) Edema
IMPRESSIONS/RECOMMENDATIONS:
Abrupt onset of encephalopathy unclear etiology
Check MRI of brain
Check EEG
Continue to treat underlying obstructive sleep apnea which is most likely producing the patient's underlying encephalopathy
Consider outpatient neuropsychological testing
D/W patient
All questions answered.
Will continue to follow pending results.
Original Note:
Today's Communication / Plan
-
-Check brain MRI as planned
-Check EEG as planned
-Continue to provide BiPAP
-Speech therapy evaluation for cognitive assessment
Neuro Assessment/Plan
Assessment
Change in mental status initially thought to be due to toxic metabolic encephalopathy in a patient who has been noncompliant with obstructive sleep apnea treatment. Patient now back to baseline.
Differential diagnosis includes toxic metabolic encephalopathy, as well as stroke although the patient does not have multiple risk factors for stroke other than diabetes and CHF, and seizure
Plan
-Check brain MRI as planned
-Check EEG as planned
-Continue to provide BiPAP
-Speech therapy evaluation for cognitive assessment
All questions encouraged and answered, plan of care discussed with Dr. Dior, patient and nurse
Subjective/Objective
Subjective Data
Date of Service: December 29, 2024
No acute overnight events. Wore bipap all night. Patient's mentation much improved today. Patient states he feels fine. Patient has no recollection of being restrained or why he is here.
Objective Data
Vital Signs
Temp Pulse Resp BP Pulse Ox
98.3 F 68 18 114/68 98
12/29/24 07:34 12/29/24 07:34 12/29/24 07:34 12/29/24 07:34 12/29/24 07:34
Lab Results
12/29/24 07:32
12/29/24 07:32
Sodium 140 mmol/L (135-145) 12/29/24 07:32
Potassium 5.0 mmol/L (3.5-5.1) 12/29/24 07:32
BUN 45 mg/dl (9-20) H 12/29/24 07:32
Glucose 171 mg/dl (70-99) H 12/29/24 07:32
Calcium 8.5 mg/dl (8.4-10.2) 12/29/24 07:32
Phosphorus 4.8 mg/dl (2.5-4.5) H 12/21/24 05:27
Ztv-Q-Kekvtvaweio Pept 3960 pg/ml 12/21/24 05:27
LDL Cholesterol, Calc 40 mg/dl 12/21/24 05:27
Vitamin B12 567 pg/ml (239-931) 12/27/24 06:46
Patient Allergies
No Known Allergies Allergy (Verified 12/20/24 19:34)
Data Reviewed
-
CT Head: Report Reviewed and Image Reviewed
Labs: Report Reviewed
Reviewed with: Physician, Nurse and Patient
Old Records: Summarized
--- NOTE | 2024-12-29 10:40 | W.PN.PUL3 ---
Today's Communication / Plan
-
Continue BiPAP at the current settings with naps and at bedtime
will prescribe noninvasive mechanical ventilator upon discharge-high risk for readmission without therapy.
Home oxygen assessment
For MRI and EEG to evaluate his change in mental status
Avoid sedatives
Continue diuretic
Physical therapy/Occupational Therapy
Will follow
Assessment
-
Patient is a 64-year-old male with previous history of diabetes, obesity, CHRIS not on CPAP, CAD complaining of shortness of breath and weight gain. Patient was notably somnolent on arrival, he is noted by family to be sleepy and lethargic most days.
He had recently undergone CABG at a hospital in [place] on 11/15/2024. Since then he apparently gained 10 pounds and had become more short of breath with activity. ABG completed on admission demonstrating acute on chronic hypercarbia. He has a
history of CHRIS but is noncompliant with CPAP. He has had with waxing and waning mental status since admission 12/20/2024. He has been intermittently refusing PAP as well. We are consulted for hypercarbia management.
Acute on chronic hypercarbic respiratory failure on BiPAP
Medical noncompliance
Waxing/waning mental status
Restrictive lung disease due to obesity
Anemia
GARY
Hyperglycemia
Conditions present prior to admission
Obesity
CHRIS not on CPAP, noncompliant
Diabetes
Hypertension
ASCVD
TIA / CVA
Carotid Stenosis
CHF
CABG x 3 (11/15/24 - [place], [place])
Bilateral BOOM
Carotid Stent
Plan
Mental status improved this morning.
Sitting out of bed, conversant.
Brother at the bedside: I am recommending noninvasive mechanical ventilation prior to discharge given high risk for readmission and complications with obesity hypoventilation syndrome.
Neurology evaluation ongoing: EEG, MRI to be performed to evaluate his change in mental status.
-
Most recent VBG appears compensated.
-
Prior history of lung disease is noted including CHRIS with suspected OHS-likely restrictive lung disease from obesity.
He has medical noncompliance to CPAP therapy, was told as an outpatient to undergo sleep study but refused
Compliance with BiPAP encouraged while in the hospital.
This patient is 64-year-old man with obstructive sleep apnea/obesity hypoventilation syndrome/restrictive lung disease from obesity. Multiple admissions to the hospital with shortness of breath and respiratory failure/heart failure. His most
recent pCO2 is 60 on 3 L of oxygen.
Has exertional dyspnea. Patient is very limited due to his breathing. Due to his hypoventilation, patient have risk of worsening chronic respiratory failure. I have considered bilevel, bilevel ST and bilevel VAPS therapy and they all have been
ruled out due to patient's worsening condition. The patient now requires a unique mode of ventilation not offered unless costly options. The patient requires a device that we will not fail in the event of a power failure and is also portable for
mobility within the home when needed. Due to the patient's worsening condition, I am prescribing noninvasive ventilation therapy to decrease the chance of continued unplanned expensive medical encounters including physician office visits,
emergency/urgent care treatment and hospital admissions.
Home oxygen assessment
Suspect patient has some component of hypercarbia causing mental status changes but this has been compensated-rule out other factors.
Neurology evaluation as above.
Avoid sedatives.
CXR/CT obtained indicating pulmonary edema
There is likely a component of heart failure, proBNP 3960 on admission
He is maintained on p.o. Lasix twice daily
Prior ECHO results are reviewed indicating normal function, mild to moderate valvular heart disease
Cardiology following the patient, renal function being followed as well.
Weight loss measures recommended
Obesity likely contributing to respiratory symptoms
Physical therapy/Occupational Therapy now the patient is more awake. Order will be placed.
Will need outpatient pulmonary evaluation in our office for PFTs and 6MWT
Risk factors assessed for underlying sleep disordered breathing also noted, recommend outpatient PSG/sleep evaluation-hopefully patient will follow-up.
Diagnostic Data
Chest X-Ray: 12/23/24-Findings suggesting pulmonary edema with cardiomegaly.
12/20/24-Moderate elevation of the right hemidiaphragm. Findings suggesting interstitial pulmonary edema pattern with small bilateral pleural effusions.
CT Scan:
Echo: 12/21/24- 1. Normal left ventricular size and systolic function. Ejection fraction is 60-65%.
2. Moderate mitral regurgitation.
3. Mild/moderate tricuspid regurgitation. Estimated pulmonary artery pressure of 39 mmHg assuming a right atrial pressure of 8 mmHg. Mildly elevated PASP.
4. No prior study available for comparison.
PFT's:
Reports and relevant images were personally reviewed.
Subjective Data
-
Date of Service:
Date of Service: December 29, 2024
Chief Complaint: Pulmonary Follow Up (Chronic hypercapnic respiratory failure)
Review of Systems
Cardiopulmonary: Dyspnea (n) and Cough (n)
GI: Abdominal Pain (n) and Nausea (n)
Objective Data
Data Reviewed
Vital Signs / I&O / Oxygen:
Vital Signs
Temp Pulse Resp BP Pulse Ox
98.3 F 68 18 114/68 89
12/29/24 07:34 12/29/24 07:34 12/29/24 07:34 12/29/24 07:34 12/29/24 08:35
Intake and Output
12/28/24 12/29/24 12/30/24
06:59 06:59 06:59
Intake Total 480 / 480 1110 / 1110
Output Total 1275 / 1275 1050 / 1050
Balance -795 / -795 60 / 60
SaO2 89
Nasal Cannula flow liters per 1
minute
Physical Exam
General: Comfortable and Other (NAD)
HEENT: Normocephalic, Anicteric and Moist Mucous Membranes
Cardiovascular: S1-S2 and Regular Rhythm
Respiratory: Clear and Non-Labored Respirations
GI: Soft, Non Distended and Non Tender
Neurology: Awake and Unresponsive (refusing to speak, saying occasional words, not answering questions)
Skin: Warm and Dry
Labs/Micro/Reports
Lab Data
12/29/24 07:32
12/29/24 07:32
Microbiology
12/23/24 21:56 Blood/Venous Blood Culture - Final
No Growth - Final Report
12/23/24 18:07 Blood/Venous Blood Culture - Final
No Growth - Final Report
12/28/24 10:54 Blood/Venous Blood Parasites Smear - Final
12/21/24 11:34 Blood/Venous Blood Culture - Final
No Growth - Final Report
12/21/24 11:26 Blood/Venous Blood Culture - Final
No Growth - Final Report
[2024-12-29 11:56] LABS: Glucose - Point of Care 301 mg/dl (70-99)
[2024-12-29] MEDS: NOVOLOG FLEXPEN-LOW RESISTANCE 4 UNITS SC (12:07)
--- NOTE | 2024-12-29 12:59 | EEG.RPT ---
Electroencephalogram Report
Recording
Date of EE12/29/24
Type of EEG: Routine
Length of EEG recordin minutes
Done with Video Recording: Yes
Patient Status: Inpatient
Recording Conditions: Awake, Drowsy and Asleep
Hyperventilation Performed: No
Photic Stimulation Performed: Yes
Report
LESS THAN 1 HOUR EEG REPORT
LESS THAN 1 HOUR EEG INTERPRETATION:
Mildly abnormal EEG for age due to diffuse bihemispheric slowing
CLINICAL CORRELATION:
This study was suggestive of mild diffuse cortical dysfunction without focal abnormality. No seizures were recorded.
Clinical correlation is advised.
METHODS:
A 21 channel digitized electroencephalogram (EEG) was performed at the bedside. The 10/20 international system of electrode placement was used with ECG and lateral/vertical eye movements recorded. Persyst QEEG monitoring was performed.
QUALITY OF STUDY:
Fair�poor
ELECTROENCEPHALOGRAPHER IMPRESSION(S):
Background
There was a low�medium amplitude fairly well organized anterior-posterior voltage gradient of theta, rarely alpha frequency
There were no significant asymmetries of background activity noted.
Sleep
Drowsiness present
Stage 1 sleep present
Stage 2 sleep present
Photic Stimulation
Failed to activate the record.
ECG
Normal sinus rhythm
--- NOTE | 2024-12-29 13:01 | W.PN.HOSP.TC ---
Addendum entered and electronically signed by Owen Machuca MD 12/29/24 13:14:
#Chronic back pain
previously s/p epidural
PT/OT
Tylenol
voltaren
Original Note:
Today's Communication/Plan
-
started to gain weight - increase Lasix to 80mg BID
follow BMP
Pulm and CM for possible BiPAP/Trilogy upon d/c as patient became wide awake and AAOx3 after spending night on BiPAP
stop Unasyn
Stroke W/U
Assessment / Plan
Assessment / Plan
64yo M with PMHx of DM, obesity, CAD s/p CABG on 11/15/24 brought in by his brother with somnolence, weight gain and SOB, managed for CHF exacerbation and hypercapnia and AMS 2/2 hypercapnia and cannot exclude hypoglycemic encephalopathy. Became
AAOx3 without any signs of lethargy after starting to be compliant with nighttime BiPAP. Also found acute stroke.
As per brother - patient had 5 days a week job in [employer] before his CABG in October, after the surgery he had decline with worsening cognition and lethargy most ikely 2/2 non-compliance with CPAP. He was recommended CPAP years ago, but did not use it
and usually spent all his weekend sleeping.
A/P:
#Acute hypoxic hypercarbic respiratory failure 2/2 diastolic CHF exacerbation and CHRIS
Echo: EF 65%, moderate MR, mild/moderate TR
LAsix, daily weight, follow Cr and electrolytes
Cardio follows: cont diuresis
Pulm consult
BiPAP but patient is declining
#Acute metabolic encephalopathy
2/2 hypercarbia and hypoglycemia
no good options due to non-compliance with BiPAP as well as cannot exclude hypoglycemic encephalopathy, that can prolonged effect even with no further hypoglycemia episodes
Head CT
Neuro consult: stop Neurontin
#Acute ischemic stroke
#Hx of CVA in 2023
3.5 mm ACUTE ISCHEMIC WHITE MATTER INFARCTS in the periventricular left frontal lobe pruett radiata and in the subcortical right parietal lobe pruett radiata
Telemetry without Afib
US carotid
Neuro consult
ASA, statin, plavix for 21 days
TSH WNL
HgbA1c 6.8%
check lipids
Neurochecks
#Anemia of chronic disease
check FOBT - RN notified
follow CBC
LDH WNL - no concern for hemolysis
#DM type 2 with hypoglycemia at home
No plan for SGLT-2 inh in view of hypoglycemia
AccuCheck, Insulin SS, and DM diet
#NSVT
#Concern for paroxysmal Afib
BB
telemetry
cardio
#Elevated Cr, GARY on admission on CKD (unknown)
unclear baseline
follow Cr
#Hyperkalemia
most likely 2/2 hypercarbia
Avoid Aldactone, ACEi/ARB
#Aspiration pneumonia
On unasyn - leukocytosis improved
#ALk phos elevation on admission
#Elevated ALT
follow LFT
US RUQ incomplete, but no signs of cholecystitis
#obesity
BMI 37.5
decrease calorie intake
DVT ppx hep
Full code
I have spent at least 56min reviewing chart, test results, communication with consultants and providing direct patient care
Anticipated Discharge: > 48 hours
Subjective/Interval History
-
Date of Service: December 29, 2024
Objective Data
-
Labs:
Laboratory Results
12/29/24
07:32
WBC 10.4
Hgb 8.6 L
Hct 29.3 L
Plt Count 220
Sodium 140
Potassium 5.0
Chloride 102
Carbon Dioxide 36 H
BUN 45 H
Creatinine 1.9 H
Glucose 171 H
Calcium 8.5
Vital Signs:
Vital Signs
Temp Pulse Resp BP Pulse Ox
98.3 F 68 18 114/68 89
12/29/24 07:34 12/29/24 07:34 12/29/24 07:34 12/29/24 07:34 12/29/24 08:35
I&O
12/28/24 12/29/24 12/30/24
06:59 06:59 06:59
Intake Total 480 / 480 1110 / 1110
Output Total 1275 / 1275 1050 / 1050
Balance -795 / -795 60 / 60
Review of Systems
-
History Source: Patient
All other systems: Reviewed and negative
Physical Exam
-
General: No Apparent Distress
HEENT: Normocephalic
Respiratory: Clear to Auscultation
GI: Soft, Nontender and Nondistended
Skin: Warm
Neuro: Awake, Alert, Oriented, AO x 3 and No Motor Deficits
Psych: Calm
[2024-12-29] MEDS: TYLENOL 650 MG PO (13:17)
[2024-12-29 13:57] LABS: VerifyNow Aspirin 505 ARU; VerifyNow PRU 364 PRU (180-376)
--- NOTE | 2024-12-29 16:30 | PTCARENOTE ---
Pox previously documented by Nursing students stated pt was on a simple mask. Pt has been on nasal cannula all shift, not a mask of any kind.
[2024-12-29 16:58] LABS: Glucose - Point of Care 132 mg/dl (70-99)
[2024-12-29] MEDS: NOVOLOG FLEXPEN-LOW RESISTANCE SC (17:17)
[2024-12-29] MEDS: LIPITOR 40 MG PO (17:17)
[2024-12-29] MEDS: DICLOFENAC 1% TOPICAL GEL 4 GRAM TOPICAL (17:17)
[2024-12-29] MEDS: REMOVE LIDOCAINE PATCH 1 PATCH REMOVE (20:09)
[2024-12-29 21:14] LABS: Glucose - Point of Care 350 mg/dl (70-99)
--- NOTE | 2024-12-29 23:41 | W.PN.UPDATE ---
Update Note
Progress Note Update
Asked to evaluate patient for chest pain, rated at 6 out of 10, described as 'buzzing' in his chest. Patient denies SOB, headache, dizziness, lightheadedness. Patient denies pain radiates. Ordered Stat EKG preliminary read showed Normal sinus
rhythm, right superior axis deviation, abnormal ECG (previous to EKG on 12/24/24 @ 7:29 am, similar). Troponin ordered, patient refused. Patient stated all pain resolved. Per RN, Troponin able to be obtained later, result 0.017. Ordered repeat
troponin with am labs.
Patient requesting insulin for accu check result 350 at 2100. Rechecked Accu check, result 199. Spoke to patient, explained no additional insulin to be ordered so he does not become hypoglycemic overnight. Patient verbalized understanding. RN
advised that patient only wore BIPAP only short time and now was refusing. Spoke to patient about the importance of wearing BIPAP, patient stated he is willing to wear Bipap. Respiratory contacted to restart Bipap.
[2024-12-29 23:51] LABS: Glucose - Point of Care 199 mg/dl (70-99)
--- NOTE | 2024-12-29 23:55 | PTCARENOTE ---
Patient became increasingly focused then agitated d/t his BP being 'elevated' at 168/72 and HS glucose at 350. He feels that no one is doing anything for him. Patient stated that he wants IV BP medication and insulin.
He also reported dizziness when he laid down after BiPap was put on, so he took it off. Patient was sitting on side of bed and said that dizziness had resolved. Patient was refusing to complete NIH assessment now d/t his agitation, though he appears
slightly more calm. Educated patient for the reason of NIH assessment. Vitals obtained 168/72, are pulse ox 100% on 2 L, HR 65, RR 16. Temp 98.4 at 10pm.
Patient then stated that he was having chest pain, 6/10 when his heart beats. SALESPERSON JEWELRY made aware via TT. EKG ordered and completed. SALESPERSON JEWELRY saw patient at bedside.
Repeat glucose check was 199, no insulin coverage ordered. Patient was agreeable to have Bipap put back on.
[2024-12-30] VITALS (9 sets, daily range): BP systolic 131–160; BP diastolic 57–80; PULSE 2–64; O2SAT 98; BMI 35.4
[2024-12-30] MEDS: HEPARIN SC ×2 (00:34→00:44)
[2024-12-30] MEDS: DICLOFENAC 1% TOPICAL GEL 4 GRAM TOPICAL ×2 (00:35→22:44)
--- NOTE | 2024-12-30 02:00 | PTCARENOTE ---
Patient initially refused Troponin labwork.
--- NOTE | 2024-12-30 02:00 | PTCARENOTE ---
Patient initially refused Troponin labwork despite educating him on reason why it was ordered. He did eventually agree about an hour later.
[2024-12-30 02:11] LABS: Troponin I 0.017 ng/ml
[2024-12-30 06:50] LABS: Venous Blood Gas B.E. 13.6 mmol/L (-4 to +4); Venous Blood Gas O2 Sat % 99.0 %
[2024-12-30 06:52] LABS: Hematocrit 27.3 % (39.0-52.0); Hemoglobin 8.2 g/dL (13.0-18.0)
[2024-12-30 07:10] LABS: Troponin I 0.021 ng/ml
[2024-12-30 07:24] LABS: ALT (SGPT) 76 U/L (0-50); AST (SGOT) 36 U/L (17-59); Albumin 3.2 g/dl (3.5-5.0); Alkaline Phosphatase 227 U/L (38-126); Blood Urea Nitrogen 45 mg/dl (9-20); Calcium 9.0 mg/dl (8.4-10.2); Carbon Dioxide 38 mmol/L (22-30); Chloride 101 mmol/L (98-107); Estimated Creatinine Clearance 49 ml/min; Glucose 139 mg/dl (70-99); Magnesium 1.9 mg/dl (1.6-2.3); Potassium 4.7 mmol/L (3.5-5.1); Sodium 140 mmol/L (135-145); Total Protein 5.8 g/dl (6.3-8.2); eGFR 44.74
[2024-12-30 08:01] LABS: Glucose - Point of Care 192 mg/dl (70-99)
--- NOTE | 2024-12-30 08:26 | W.PN.NEURO.1 ---
Addendum entered and electronically signed by Pradip Dior MD 12/30/24 12:22:
Correction, patient should have discontinuance of dual antiplatelet therapy with initiation instead of apixaban due to prior history of atrial fibrillation.
Original Note:
Today's Communication / Plan
-
Outpatient neuropsychological testing
Continue combination of aspirin and clopidogrel for 21 days, then aspirin alone
Would continue to hold gabapentin
Continue to provide BiPAP
Continue thiamine
No indication at this time for lumbar puncture
Would discontinue at this time the use of atorvastatin due to elevated LFTs and LDL less than 70
Neuro Assessment/Plan
Assessment
Change in mental status initially thought to be due to toxic metabolic encephalopathy in a patient who has been noncompliant with obstructive sleep apnea treatment.
MRI of brain did demonstrate 2 areas of subacute ischemic stroke bilaterally which most likely have worsened the patient's underlying encephalopathy.
Patient was not a candidate for either tenecteplase or intra-arterial thrombectomy due to timeframe out of window and NIH stroke scale less than 6
Plan
Outpatient neuropsychological testing
Continue combination of aspirin and clopidogrel for 21 days, then aspirin alone
Would continue to hold gabapentin
Continue to provide BiPAP
Continue thiamine
No indication at this time for lumbar puncture
Would discontinue at this time the use of atorvastatin due to elevated LFTs and LDL less than 70
Will follow as outpatient
Subjective/Objective
Subjective Data
Date of Service: December 30, 2024
Objective Data
Vital Signs
Temp Pulse Resp BP Pulse Ox
36.6 C 63 20 144/57 98
12/30/24 03:34 12/30/24 03:34 12/30/24 03:34 12/30/24 03:34 12/30/24 03:34
Lab Results
12/30/24 06:38
12/30/24 06:38
Sodium 140 mmol/L (135-145) 12/30/24 06:38
Potassium 4.7 mmol/L (3.5-5.1) 12/30/24 06:38
BUN 45 mg/dl (9-20) H 12/30/24 06:38
Glucose 139 mg/dl (70-99) H 12/30/24 06:38
Calcium 9.0 mg/dl (8.4-10.2) 12/30/24 06:38
Phosphorus 4.8 mg/dl (2.5-4.5) H 12/21/24 05:27
Abc-P-Ohepvdvdxwi Pept 3960 pg/ml 12/21/24 05:27
LDL Cholesterol, Calc 40 mg/dl 12/21/24 05:27
Vitamin B12 567 pg/ml (239-931) 12/27/24 06:46
Patient Allergies
No Known Allergies Allergy (Verified 12/20/24 19:34)
Data Reviewed
-
MRI Head: Report Reviewed and Image Reviewed
Labs: Report Reviewed
Reviewed with: Nurse Practioner
Old Records: Summarized
Past History
Past History
ED Past Medical History: CAD, HTN, NIDDM and Other
ED Past Surgical History: Cardiac
Family History
Family History: CAD
Medications
-
Medications:
Generic Name Dose Route Start Last Admin
Trade Name Freq PRN Reason Stop Dose Admin
Acetaminophen 650 mg 12/21/24 00:55 12/29/24 13:17
Acetaminophen 325 Mg Tablet PO 01/18/25 00:54 650 mg
Q4HPRN PRN Administration
Mild Pain / Temp > 101
Aspirin 81 mg 12/21/24 08:00 12/29/24 08:41
Aspirin 81 Mg Chewable Tablet PO 01/18/25 07:59 81 mg
DAILY AMANDA Administration
Atorvastatin Calcium 40 mg 12/29/24 18:00 12/29/24 17:17
Atorvastatin (Lipitor) 40 Mg Tablet PO 01/26/25 17:59 40 mg
QPM AMANDA Administration
Clopidogrel Bisulfate 75 mg 12/30/24 08:00
Clopidogrel 75 Mg Tablet PO 01/19/25 08:01
DAILY AMANDA
Dextrose 12.5 grams 12/20/24 23:52 12/22/24 01:18
Dextrose 50% (0.5 Grams/Ml) 50 Ml Syringe IV 01/17/25 23:51 12.5 grams
[id number] PRN Administration
hypoglycemia
Protocol
Diclofenac Sodium 0 gram 12/29/24 18:00 12/30/24 00:35
Diclofenac 1% Topical Gel 100 Gram Tube TOPICAL 01/26/25 17:59 4 gram
QID AMANDA Administration
Protocol
Duloxetine HCl 20 mg 12/27/24 11:00 12/29/24 08:40
Duloxetine Delayed Release 20 Mg Capsule PO 01/24/25 10:59 20 mg
DAILY AMANDA Administration
Furosemide 80 mg 12/29/24 20:00 12/29/24 20:09
Furosemide 80 Mg Tablet PO 01/26/25 19:59 80 mg
BID AMANDA Administration
Glucagon 1 mg 12/20/24 23:52 12/21/24 09:29
Glucagon 1 Mg Vial IM 01/17/25 23:51 1 mg
PRN PRN Administration
hypoglycemia
Protocol
Heparin Sodium 5,000 units 12/22/24 16:00 12/30/24 00:44
Heparin 5,000 Units/Ml 1 Ml Vial SC 01/19/25 15:59 Not Given
Q8 AMANDA
Insulin Aspart 0 units 12/27/24 12:00 12/29/24 17:17
Insulin Aspart Low Resistance 300 Units/3 Ml Pen.Injctr SC 01/24/25 11:59 Not Given
AC AMANDA
Protocol
Lidocaine 1 patch 12/27/24 20:35 12/29/24 08:41
Lidocaine 4% Topical Patch TOPICAL 01/24/25 20:34 1 patch
DAILY AMANDA Administration
Protocol
Metoprolol Succinate 50 mg 12/24/24 20:00 12/29/24 20:08
Metoprolol 50 Mg Extended Release Tablet PO 01/21/25 19:59 50 mg
BID AMANDA Administration
Pantoprazole Sodium 40 mg 12/21/24 08:00 12/29/24 08:41
Pantoprazole 40 Mg Delayed Release Tablet PO 01/18/25 07:59 40 mg
DAILY AMANDA Administration
Patch Removal 0 patch 12/28/24 20:00 12/29/24 20:09
Remove Lidocaine Patch REMOVE 01/25/25 19:59 1 patch
DAILY@2000 AMANDA Administration
Sodium Chloride 0 flush 12/20/24 23:00
Sodium Chloride 0.9% (Flush) Syringe IV 01/17/25 22:59
PER PROTOCOL AMANDA
Tamsulosin HCl 0.4 mg 12/21/24 08:00 12/29/24 08:40
Tamsulosin 0.4 Mg Capsule PO 01/18/25 07:59 0.4 mg
DAILY AMANDA Administration
Trazodone HCl 50 mg 12/22/24 22:00 12/28/24 22:17
Trazodone 50 Mg Tablet PO 01/19/25 21:59 Not Given
On Hold: 12/29/24 13:15 HS AMANDA
[2024-12-30] MEDS: TOPROL XL 50 MG PO ×2 (08:32→20:10)
[2024-12-30] MEDS: NOVOLOG FLEXPEN-LOW RESISTANCE 1 UNITS SC (08:32)
[2024-12-30] MEDS: LASIX 80 MG PO ×2 (08:33→20:10)
[2024-12-30] MEDS: PROTONIX 40 MG PO (08:33)
[2024-12-30] MEDS: LIDOCAINE 4% PATCH 1 PATCH TOPICAL (08:33)
[2024-12-30] MEDS: CYMBALTA DELAYED RELEASE 20 MG PO (08:33)
[2024-12-30] MEDS: FLOMAX 0.4 MG PO (08:33)
[2024-12-30] MEDS: LOW STRENGTH ASPIRIN 81 MG PO (08:33)
[2024-12-30] MEDS: PLAVIX 75 MG PO (08:33)
[2024-12-30] MEDS: VITAMIN B1 100 MG PO (08:33)
[2024-12-30] MEDS: HEPARIN 5000 UNITS SC (08:34)
[2024-12-30] MEDS: DICLOFENAC 1% TOPICAL GEL 100 GRAM TOPICAL ×3 (08:34→17:19)
--- NOTE | 2024-12-30 08:35 | W.PN.CD ---
Today's Communication / Plan
-
Awake alert comfortable sitting in a chair responding to questions appropriately. Respiratory status appears stable. Remains on nasal cannula O2. Lungs are clear still with mild residual edema
-MRI 12/29/2024 [facility] Small 3.5 mm ACUTE ISCHEMIC WHITE MATTER INFARCTS in the periventricular left frontal lobe pruett radiata and in the subcortical right parietal lobe pruett radiata.
- PAF had been reported by Dr. Ortiz 12/27/2024. Multiple paroxysms lasting up to 90 minutes. Currently in sinus rhythm.
-Anticoagulation with Eliquis when safe from a neurology standpoint
-Respiratory status is stable remains on 2 L nasal cannula. Still with mild edema. Continue Lasix. Monitor weights and renal function.
Impression / Plan
-
Acute on chronic HFPEF
- Improved. admit weight 103/105.5 on 12/20-. On 12/30/2024 99.5 kg
- Edema improved.
- Moved from IV 60 BID => Lasix 80 mg PO BID n
- Mild edema on exam. Watch weight/edema
- Avoiding SGLT2-I for now given presentation with hypoglycemia
- Avoiding Aldactone for now due to hyperkalemia.
Change in mental status. Initially there was some concern regarding CO2 retention/obesity/hypoventilation syndrome. Patient has been seen by neurology.
-MRI 12/29/2024 [facility] Small 3.5 mm ACUTE ISCHEMIC WHITE MATTER INFARCTS in the periventricular left frontal lobe pruett radiata and in the subcortical right parietal lobe pruett radiata.
- PAF had been reported by Dr. Ortiz 12/27/2024. Multiple paroxysms lasting up to 90 minutes. Currently in sinus rhythm.
-Anticoagulation with Eliquis when safe from a neurology standpoint
-Respiratory status is stable remains on 2 L nasal cannula. Still with mild edema. Continue Lasix. Monitor weights and renal function.
.
PAF
-Reported earlier this admission. See note by Dr. Ortiz 12/27/2024-
- MRI this admission with evidence of small acute CVAs.
- Anticoagulation with Eliquis once neurology feels it is safe
- Continue beta-sarah
CAD with recent hx CABG:
-continue ASA and BID Metoprolol
Statin, LDL is 40 so for now no statin
NSVT => just beta sarah
Confusion/lethargy => improved. Awake sitting in chair comfortable. Multiple factors may have contributed. Evidence of small acute CVAs on MRI as noted above
Hypoglycemia => improved, hard to want to use SGLT2-I until we know his DM is better w/o hypoglycemia
Renal insuf, ? GARY on CKD
Anemia
Subjective: Denies CP or dyspnea. Sitting up and comfortable.
Data: Echo 12/21: EF 60-65%, mod MR, mild/mod TR, PASP 39
Physical Exam
Vital Signs/Labs
Vital Signs
Temp Pulse Resp BP Pulse Ox
98.6 F 64 20 152/62 97
12/30/24 07:45 12/30/24 07:45 12/30/24 07:45 12/30/24 07:45 12/30/24 07:45
12/29/24 12/30/24 12/31/24
06:59 06:59 06:59
Actual Weight 99.45 kg 99.535 kg
12/30/24 06:38
12/30/24 06:38
Magnesium 1.9 mg/dl (1.6-2.3) 12/30/24 06:38
Triglycerides 34 mg/dl (10-149) 12/21/24 05:27
LDL Cholesterol, Calc 40 mg/dl 12/21/24 05:27
VLDL Cholesterol, Calc 6 mg/dl (0-30) 12/21/24 05:27
HDL Cholesterol 69 mg/dl 12/21/24 05:27
12/20/24 12/21/24
21:11 05:27
Phk-V-Bfdcroawxrz Pept 4580 3960
LAB Results
12/30/24 12/30/24
01:10 06:38
Troponin I 0.017 0.021
Physical Exam
Constitutional: No acute distress and Other (Ensure awake alert cooperative appears to be answering questions appropriately)
Cardiovascular: Rhythm & rate is regular
Respiratory: Wheeze Absent and Rhonchi Absent
GI: Soft and Non tender
Neuro/Psych: Alert and Oriented
Other: Other (Mild bilateral edema)
Data Reviewed
-
Date of Service: December 30, 2024
Medical Decision Making: Reviewed Test Results
Echo: Report Reviewed by me
Medical Tests (PFT, Pathology etc): Report Reviewed by me
Labs: Labs Reviewed by me
[2024-12-30 09:10] LABS: GGTP 348 U/L (15-73)
[2024-12-30 11:00] LABS: Glucose - Point of Care 254 mg/dl (70-99)
--- NOTE | 2024-12-30 11:38 | W.PN.HOSP.TC ---
Today's Communication/Plan
-
mentation on baseline, Hgb stable, hem consult placed
weight stable and Cr not worsening on increased Lasix - cont
Start Eliquis
Assessment / Plan
Assessment / Plan
64yo M with PMHx of DM, obesity, CAD s/p CABG on 11/15/24 brought in by his brother with somnolence, weight gain and SOB, managed for CHF exacerbation and hypercapnia and AMS 2/2 hypercapnia and cannot exclude hypoglycemic encephalopathy. Became
AAOx3 without any signs of lethargy after starting to be compliant with nighttime BiPAP. Also found acute stroke most likely 2/2 paroxysmal Afib, so started on Eliquis
As per brother - patient had 5 days a week job in [employer] before his CABG in October, after the surgery he had decline with worsening cognition and lethargy most likely 2/2 non-compliance with CPAP. He was recommended CPAP years ago, but did not use it
and usually spent all his weekend sleeping.
For elevated liver tests seen since admission: outpatient w/u with GI recommended, as no acute findings on US while inpatient
A/P:
#Acute hypoxic hypercarbic respiratory failure 2/2 diastolic CHF exacerbation and CHRIS
Echo: EF 65%, moderate MR, mild/moderate TR
LAsix, daily weight, follow Cr and electrolytes
Cardio follows: cont diuresis
Pulm consult: for
BiPAP
#Acute metabolic encephalopathy
2/2 hypercarbia and hypoglycemia
no good options due to non-compliance with BiPAP as well as cannot exclude hypoglycemic encephalopathy, that can prolonged effect even with no further hypoglycemia episodes
Head CT
Neuro consult: stop Neurontin
#Acute ischemic stroke
#Hx of CVA in 2023
3.5 mm ACUTE ISCHEMIC WH[employer] INFARCTS in the periventricular left frontal lobe pruett radiata and in the subcortical right parietal lobe pruett radiata
Telemetry showed paroxysmal Afib
US carotid
Neuro consult
statin, Eliquis
TSH WNL
HgbA1c 6.8%
LDL 40
Neurochecks
#NSVT
#paroxysmal Afib
BB
telemetry
cardio: start Eliquis
#Anemia of chronic disease
check FOBT - RN notified
follow CBC
LDH WNL - no concern for hemolysis
with normocytic anemia- hematology consult appropriate
#DM type 2 with hypoglycemia at home
No plan for SGLT-2 inh in view of hypoglycemia
AccuCheck, Insulin SS, and DM diet
#Elevated Cr, GARY on admission on CKD (unknown)
unclear baseline
follow Cr
#Hyperkalemia
most likely 2/2 hypercarbia
Avoid Aldactone, ACEi/ARB
#Aspiration pneumonia
On unasyn - leukocytosis improved
#ALk phos elevation on admission
#Elevated ALT
follow LFT
US RUQ incomplete, but no signs of cholecystitis
GGT elevated - outpatient w/u with GI recommended
#obesity
BMI 37.5
decrease calorie intake
DVT ppx hep
Full code
I have spent at least 51min reviewing chart, test results, communication with consultants and providing direct patient care
Anticipated Discharge: Within 24 hours
Subjective/Interval History
-
Date of Service: December 30, 2024
Objective Data
-
Labs:
Laboratory Results
12/30/24
06:38
Hgb 8.2 L
Hct 27.3 L
Sodium 140
Potassium 4.7
Chloride 101
Carbon Dioxide 38 H
BUN 45 H
Creatinine 1.7 H
Glucose 139 H
Calcium 9.0
Total Bilirubin 0.4
AST 36
ALT 76 H
Alkaline Phosphatase 227 H
Vital Signs:
Vital Signs
Temp Pulse Resp BP Pulse Ox
98.6 F 64 20 152/62 97
12/30/24 07:45 12/30/24 08:32 12/30/24 07:45 12/30/24 08:32 12/30/24 08:30
I&O
12/29/24 12/30/24 12/31/24
06:59 06:59 06:59
Intake Total 1110 / 1110 540 / 540
Output Total 1050 / 1050 2049
Balance 60 / 60 -1510 / -1510
Review of Systems
-
History Source: Patient
All other systems: Reviewed and negative
Physical Exam
-
General: No Apparent Distress
HEENT: Normocephalic
Cardiac: Regular Rhythm
Neuro: Awake, Alert, Oriented and AO x 3
Psych: Calm
[2024-12-30] MEDS: NOVOLOG FLEXPEN-LOW RESISTANCE 3 UNITS SC (13:11)
[2024-12-30] MEDS: TYLENOL 650 MG PO (15:10)
--- NOTE | 2024-12-30 15:12 | W.PN.PUL3 ---
Today's Communication / Plan
-
Continue BiPAP while in the hospital
manager leasing working on noninvasive mechanical ventilator
Continue diuresis
Repeat chest x-ray tomorrow
Wean off FiO2-currently at 2 L
Eventual home oxygen assessment after proper diuresis.
Assessment
-
Patient is a 64-year-old male with previous history of diabetes, obesity, CHRIS not on CPAP, CAD complaining of shortness of breath and weight gain. Patient was notably somnolent on arrival, he is noted by family to be sleepy and lethargic most days.
He had recently undergone CABG at a hospital in [place] on 11/15/2024. Since then he apparently gained 10 pounds and had become more short of breath with activity. ABG completed on admission demonstrating acute on chronic hypercarbia. He has a
history of CHRIS but is noncompliant with CPAP. He has had with waxing and waning mental status since admission 12/20/2024. He has been intermittently refusing PAP as well. We are consulted for hypercarbia management.
Acute on chronic hypercarbic respiratory failure on BiPAP
Medical noncompliance
Waxing/waning mental status
Restrictive lung disease due to obesity
Anemia
GARY
Hyperglycemia
Conditions present prior to admission
Obesity
CHRIS not on CPAP, noncompliant
Diabetes
Hypertension
ASCVD
TIA / CVA
Carotid Stenosis
CHF
CABG x 3 (11/15/24 - [place], [place])
Bilateral BOOM
Carotid Stent
Plan
Mental status back to baseline-
Denies any headache.
Discussion with the brother at the bedside with Dr. Mratinez 12/30/2024: I am recommending noninvasive mechanical ventilation prior to discharge given high risk for readmission and complications with obesity hypoventilation syndrome.
Neurology evaluation: Noted. MRI with evidence of prior CVA.
Antiplatelets recommended
History of atrial fibrillation in the past-anticoagulation also recommended per cardiology.
-
Prior history of lung disease is noted including CHRIS with suspected OHS-likely restrictive lung disease from obesity.
He has medical noncompliance to CPAP therapy, was told as an outpatient to undergo sleep study but refused
Compliance with BiPAP encouraged while in the hospital- Now she is willing to get ventilator prior to discharge. She is committed to follow-up.
Most recent VBG appears compensated.
This patient is 64-year-old man with obstructive sleep apnea/obesity hypoventilation syndrome/restrictive lung disease from obesity. Multiple admissions to the hospital with shortness of breath and respiratory failure/heart failure. His most
recent pCO2 is 60 on 3 L of oxygen.
Has exertional dyspnea. Patient is very limited due to his breathing. Due to his hypoventilation, patient have risk of worsening chronic respiratory failure. I have considered bilevel, bilevel ST and bilevel VAPS therapy and they all have been
ruled out due to patient's worsening condition. The patient now requires a unique mode of ventilation not offered unless costly options. The patient requires a device that we will not fail in the event of a power failure and is also portable for
mobility within the home when needed. Due to the patient's worsening condition, I am prescribing noninvasive ventilation therapy to decrease the chance of continued unplanned expensive medical encounters including physician office visits,
emergency/urgent care treatment and hospital admissions.
Home oxygen assessment-prior to discharge. Continues to be on 2 L of supplemental oxygen
Continue diuresis
Incentive spirometer
Increase activity as able
Suspect patient has some component of hypercarbia causing mental status changes but this has been compensated-rule out other factors.
Neurology evaluation as above.
Avoid sedatives.
CXR: 12/23/2024:-pulmonary edema
There is likely a component of heart failure, proBNP 3960 on admission
Ongoing diuresis per cardiology.
Prior ECHO results are reviewed indicating normal function, mild to moderate valvular heart disease
Cardiology following the patient, renal function being followed as well.
Repeat chest x-ray tomorrow 12/31/2024.
Weight loss measures recommended
Obesity likely contributing to respiratory symptoms
Physical therapy/Occupational Therapy now the patient is more awake. Order will be placed.
Will need outpatient pulmonary evaluation in our office for PFTs and 6MWT
Risk factors assessed for underlying sleep disordered breathing also noted, recommend outpatient PSG/sleep evaluation-hopefully patient will follow-up.
Diagnostic Data
Chest X-Ray: 12/23/24-Findings suggesting pulmonary edema with cardiomegaly.
12/20/24-Moderate elevation of the right hemidiaphragm. Findings suggesting interstitial pulmonary edema pattern with small bilateral pleural effusions.
CT Scan:
Echo: 12/21/24- 1. Normal left ventricular size and systolic function. Ejection fraction is 60-65%.
2. Moderate mitral regurgitation.
3. Mild/moderate tricuspid regurgitation. Estimated pulmonary artery pressure of 39 mmHg assuming a right atrial pressure of 8 mmHg. Mildly elevated PASP.
4. No prior study available for comparison.
PFT's:
Reports and relevant images were personally reviewed.
Subjective Data
-
Date of Service:
Date of Service: December 30, 2024
Chief Complaint: Pulmonary Follow Up (Chronic hypercapnic respiratory failure)
Subjective:
Reports no new complaints today
Denies increased phlegm production
Able to tolerate BiPAP overnight
Review of Systems
Cardiopulmonary: Dyspnea (Improved), Sputum Production (n) and Wheezing (n)
GI: Abdominal Pain (n)
Objective Data
Data Reviewed
Vital Signs / I&O / Oxygen:
Vital Signs
Temp Pulse Resp BP Pulse Ox
98.6 F 66 20 155/70 98
12/30/24 11:17 12/30/24 11:17 12/30/24 11:17 12/30/24 11:17 12/30/24 11:17
Intake and Output
12/29/24 12/30/24 12/31/24
06:59 06:59 06:59
Intake Total 1110 / 1110 540 / 540
Output Total 1050 / 1050 2049
Balance 60 / 60 -1510 / -1510
SaO2 98
Nasal Cannula flow liters per 2
minute
Physical Exam
General: Comfortable and Other (NAD)
HEENT: Normocephalic, Anicteric and Moist Mucous Membranes
Cardiovascular: S1-S2 and Regular Rhythm
Respiratory: Clear and Non-Labored Respirations
GI: Soft, Non Distended and Non Tender
Neurology: Awake and Unresponsive (refusing to speak, saying occasional words, not answering questions)
Skin: Warm and Dry
Labs/Micro/Reports
Lab Data
12/30/24 06:38
12/30/24 06:38
Microbiology
12/23/24 21:56 Blood/Venous Blood Culture - Final
No Growth - Final Report
12/23/24 18:07 Blood/Venous Blood Culture - Final
No Growth - Final Report
12/28/24 10:54 Blood/Venous Blood Parasites Smear - Final
--- NOTE | 2024-12-30 15:25 | CM ---
CM reviewed chart, patient seen bedside, spoke with patients brother, Benito, while in room. Brother requesting referral to [place], will request PMR consult. Brother requesting referrals to local [place] [facility] as back up. CM will continue to follow
for all discharge planning needs.
Plan; request PMR consult for acute rehab vs SNF [place] area
[2024-12-30 16:04] LABS: Glucose - Point of Care 230 mg/dl (70-99)
[2024-12-30] MEDS: NOVOLOG FLEXPEN-LOW RESISTANCE 2 UNITS SC (17:20)
[2024-12-30] MEDS: ELIQUIS 5 MG PO (20:10)
[2024-12-30] MEDS: REMOVE LIDOCAINE PATCH 1 PATCH REMOVE (20:11)
[2024-12-30 21:13] LABS: Glucose - Point of Care 209 mg/dl (70-99)
[2024-12-31 03:46] VITALS: BP 127/58
[2024-12-31 06:00] VITALS: BMI 34.8
[2024-12-31 08:21] LABS: Glucose - Point of Care 130 mg/dl (70-99)
[2024-12-31] MEDS: ELIQUIS 5 MG PO ×2 (08:21→20:47)
[2024-12-31] MEDS: LIDOCAINE 4% PATCH 1 PATCH TOPICAL (08:21)
[2024-12-31] MEDS: CYMBALTA DELAYED RELEASE 20 MG PO (08:21)
[2024-12-31] MEDS: PROTONIX 40 MG PO (08:21)
[2024-12-31] MEDS: TOPROL XL 50 MG PO ×2 (08:22→20:47)
[2024-12-31] MEDS: FLOMAX 0.4 MG PO (08:22)
[2024-12-31] MEDS: LASIX 80 MG PO ×2 (08:23→20:46)
[2024-12-31] MEDS: NOVOLOG FLEXPEN-LOW RESISTANCE SC (08:23)
[2024-12-31] MEDS: DICLOFENAC 1% TOPICAL GEL 100 GRAM TOPICAL ×3 (08:24→17:19)
--- NOTE | 2024-12-31 08:34 | W.PN.CD ---
Today's Communication / Plan
-
lasix 80mg PO bid
Eliquis 5mg bid
Toprol XL 50mg bid
continue ASA 81mg for one year post CABG, then stop (as long as continues on eliquis)
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
please call us with additional questions
Impression / Plan
-
Acute on chronic HFPEF: improved s/p IV lasix
- continue lasix 80mg PO bid
- Avoiding SGLT2-I for now given presentation with hypoglycemia
- Avoiding Aldactone for now due to hyperkalemia on presentation
Paroxysmal A fib
-in sinus
- MRI this admission with evidence of small acute CVAs.
- Anticoagulation with Eliquis 5mg bid
-CHADS2-VASC = 4
-Toprol XL 50mg bid
CAD with recent hx CABG:
-continue ASA 81mg for one year post CABG, then stop (as long as continues on eliquis)
Statin, LDL is 40 so for now no statin
NSVT => beta sarah
-EF normal
-in setting of hyperkalemia
Valvular heart disease
-outpatient f/u
Hypoglycemia => improved, hard to want to use SGLT2-I until we know his DM is better w/o hypoglycemia
Anemia
Data: Echo 12/21: EF 60-65%, mod MR, mild/mod TR, PASP 39
Physical Exam
Vital Signs/Labs
Vital Signs
Temp Pulse Resp BP Pulse Ox
98.2 F 69 16 170/77 99
12/31/24 03:46 12/31/24 08:22 12/31/24 03:46 12/31/24 08:22 12/31/24 03:46
12/30/24 12/31/24 01/01/25
06:59 06:59 06:59
Actual Weight 99.535 kg 97.749 kg
Magnesium 1.9 mg/dl (1.6-2.3) 12/30/24 06:38
Triglycerides 34 mg/dl (10-149) 12/21/24 05:27
LDL Cholesterol, Calc 40 mg/dl 12/21/24 05:27
VLDL Cholesterol, Calc 6 mg/dl (0-30) 12/21/24 05:27
HDL Cholesterol 69 mg/dl 12/21/24 05:27
12/20/24 12/21/24
21:11 05:27
Gyf-T-[id number] Pept 4580 3960
LAB Results
12/30/24 12/30/24
01:10 06:38
Troponin I 0.017 0.021
Physical Exam
Constitutional: No acute distress
EENT: Moist mucous membranes
Cardiovascular: Rhythm & rate is regular, Pedal edema is absent, JVD pressure is normal and Systolic murmur present
Respiratory: Respiratory effort normal and Lungs clear to auscul.
Neuro/Psych: Alert
Data Reviewed
-
Date of Service: December 31, 2024
EKG: Other (Tele: SR 60s, no arrhythmia)
Labs: Labs Ordered by me
[2024-12-31 08:44] VITALS: BP 170/77
[2024-12-31 09:08] LABS: Hematocrit 30.5 % (39.0-52.0); Hemoglobin 9.2 g/dL (13.0-18.0); Mean Corp Hgb Conc. 30.2 g/dL (33.0-37.0); Mean Corpuscular Volume 81.6 fL (80.0-94.0); Nucleated Red Blood Cells % 0 % (-); Platelet Count 247 10^3/uL (130-400); Red Cell Dist. Width 20.1 % (11.5-14.5)
--- NOTE | 2024-12-31 09:33 | CON.ONC ---
Documented by User: BRIDGER Hawk 12/31/24 12:23
Consultation
-
Date Consultation Requested: 12/31/24
Date Consultation Performed: 12/31/24
Requesting Provider: Dr. Owen Machuca
Performing Provider: Dr. Benito Vizcarra
Reason for Consultation: anemia
Impression
Impression
normocytic anemia - chronicity unknown
renal insufficency - chronicity unknown
CVA started on DOAC Dec 2024
CABG October 2024 on ASA
valvular heart disease
CHRIS
Plan
Plan
normocytic anemia has remained stable throughout hospitalization
no substrate deficiency. normal retic, normal LDH, and LFT pattern does not suggest hemolysis.
heme stool pending
I will check ESR, CRP, erythropoietin, SPEP, and FLC.
He may have anemia secondary to renal insufficiency. if this is the case, he would be eligible for OP ARTHUR for AOCKD if Hgb remains <10g/dL.
Patient History
History of Present Illness
64yo M presented to ER on 12/20/2024 with SOB, weight gain, and somnolence. He recently underwent CABG at [facility] in [place] on October followed by SNF then discharge to live with his brother locally last week. Since d/c from SNF, he
gained 10lb and had progressive NATION with home physical therapy. He takes a muscle relaxer and gabapentin for back pain. He takes PPI dialy. He was admitted for management of CHF exacerbation, acute hypoxic hypercarbic respiratory failure, and AMS.
He was found to have a stroke likely from his atrial fibrillation so started on DOAC and continued daily ASA.
Hematology is consulted for normocytic anemia. Admission CBC showed a Hgb 9 with normal MCV, WBC, and platelet count which has remained stable throughout his hospital course. His admission creatinine was 2.1 and has trended to 1.5 today. HIs ALT and
alk phos were elevated on admission and improving on yesterday's CMP. His ferritin is ~200, IS 22, TIBC 263, Iron 60, B12 567, folate 9.2, retic 2.7, and normal TSH. I do not have prior records to determine chronicity of renal insufficency or anemia
trend.
Afebrie, no hypotension, 2L NC. His weight has improved from 103kg to 97.8kg today.
Past-Medical/Surgical History
PMH ASCVD, DM2, obesity, TIA/CVA, CHF, HTN, CHRIS
PSH CABG, b/l BOOM, carotid stent
Social: [employer] employee prior to CABG
Family non-contributory
Patient Medication
�Medication �Instructions �Recorded �Confirmed �Last Taken �Type
gabapentin 100 mg capsule 100 mg PO BID Pain 12/20/24 12/20/24 Unknown History
insulin glargine 100 unit/mL (3 12 unit SC DAILY Diabetes 12/20/24 12/20/24 Unknown History
mL) subcutaneous pen
lidocaine 4 % topical patch 1 patch topical DAILY PRN pain 12/20/24 12/20/24 Unknown History
(Lidocaine Pain Relief)
metoprolol tartrate 37.5 mg tablet 37.5 mg PO BID Heart Failure 12/20/24 12/20/24 Unknown History
pantoprazole 40 mg tablet,delayed 40 mg PO DAILY Gastrointestinal 12/20/24 12/20/24 Unknown History
release Issue
tamsulosin 0.4 mg capsule 0.4 mg PO DAILY Urinary Issue 12/20/24 12/20/24 Unknown History
trazodone 50 mg tablet 50 mg PO HS Sleep 12/20/24 12/20/24 Unknown History
Active Medications
Generic Name Dose Route Start Last Admin
Trade Name Freq PRN Reason Stop Dose Admin
Acetaminophen 650 mg 12/21/24 00:55 12/30/24 15:10
Acetaminophen 325 Mg Tablet PO 01/18/25 00:54 650 mg
Q4HPRN PRN Administration
Mild Pain / Temp > 101
Apixaban 5 mg 12/30/24 20:00 12/31/24 08:21
Apixaban (Eliquis) 5 Mg Tablet PO 01/27/25 19:59 5 mg
BID AMANDA Administration
Aspirin 81 mg 12/31/24 09:00
Aspirin 81 Mg Chewable Tablet PO 01/28/25 08:59
DAILY AMANDA
Dextrose 12.5 grams 12/20/24 23:52 12/22/24 01:18
Dextrose 50% (0.5 Grams/Ml) 50 Ml Syringe IV 01/17/25 23:51 12.5 grams
[id number] PRN Administration
hypoglycemia
Protocol
Diclofenac Sodium 0 gram 12/29/24 18:00 12/31/24 08:24
Diclofenac 1% Topical Gel 100 Gram Tube TOPICAL 01/26/25 17:59 100 gram
QID AMANDA Administration
Protocol
Duloxetine HCl 20 mg 12/27/24 11:00 12/31/24 08:21
Duloxetine Delayed Release 20 Mg Capsule PO 01/24/25 10:59 20 mg
DAILY AMANDA Administration
Furosemide 80 mg 12/29/24 20:00 12/31/24 08:23
Furosemide 80 Mg Tablet PO 01/26/25 19:59 80 mg
BID AMANDA Administration
Glucagon 1 mg 12/20/24 23:52 12/21/24 09:29
Glucagon 1 Mg Vial IM 01/17/25 23:51 1 mg
PRN PRN Administration
hypoglycemia
Protocol
Insulin Aspart 0 units 12/27/24 12:00 12/31/24 08:23
Insulin Aspart Low Resistance 300 Units/3 Ml Pen.Injctr SC 01/24/25 11:59 Not Given
AC AMANDA
Protocol
Lidocaine 1 patch 12/27/24 20:35 12/31/24 08:21
Lidocaine 4% Topical Patch TOPICAL 01/24/25 20:34 1 patch
DAILY AMANDA Administration
Protocol
Metoprolol Succinate 50 mg 12/24/24 20:00 12/31/24 08:22
Metoprolol 50 Mg Extended Release Tablet PO 01/21/25 19:59 50 mg
BID AMANDA Administration
Pantoprazole Sodium 40 mg 12/21/24 08:00 12/31/24 08:21
Pantoprazole 40 Mg Delayed Release Tablet PO 01/18/25 07:59 40 mg
DAILY AMANDA Administration
Patch Removal 0 patch 12/28/24 20:00 12/30/24 20:11
Remove Lidocaine Patch REMOVE 01/25/25 19:59 1 patch
DAILY@2000 AMANDA Administration
Sodium Chloride 0 flush 12/20/24 23:00
Sodium Chloride 0.9% (Flush) Syringe IV 01/17/25 22:59
PER PROTOCOL AMANDA
Tamsulosin HCl 0.4 mg 12/21/24 08:00 12/31/24 08:22
Tamsulosin 0.4 Mg Capsule PO 01/18/25 07:59 0.4 mg
DAILY AMANDA Administration
Trazodone HCl 50 mg 12/22/24 22:00 12/28/24 22:17
Trazodone 50 Mg Tablet PO 01/19/25 21:59 Not Given
On Hold: 12/29/24 13:15 HS AMANDA
Review of Systems
-
ROS is notable for HPI, otherwise negative
Physical Exam
-
General: No Apparent Distress and Obese
HEENT: Moist Mucous Membranes; Negative Jaundice
Pulmonary: Other (unlabored)
GI: Soft
Extremities: Pulses Present and Other (b/l lower extremities with dressing CDI)
Skin: Warm
Psych: Calm
Labs
Lab Results
WBC 10.1 10^3/uL (4.8-10.8) 12/31/24 08:43
RBC 3.74 10^6/uL (4.70-6.10) L 12/31/24 08:43
Hgb 9.2 g/dL (13.0-18.0) L 12/31/24 08:43
Hct 30.5 % (39.0-52.0) L 12/31/24 08:43
MCV 81.6 fL (80.0-94.0) 12/31/24 08:43
MCH 24.6 pg (27.0-31.0) L 12/31/24 08:43
MCHC 30.2 g/dL (33.0-37.0) L 12/31/24 08:43
RDW 20.1 % (11.5-14.5) H 12/31/24 08:43
Plt Count 247 10^3/uL (130-400) 12/31/24 08:43
MPV 10.4 fL (7.4-10.4) 12/31/24 08:43
Abs Immat Gran (auto) 0.2 10^3/uL (0-0.05) H 12/31/24 08:43
Absolute Neuts (auto) 7.3 10^3/uL (1.4-6.5) H 12/31/24 08:43
Absolute Lymphs (auto) 1.0 10^3/uL (1.2-3.4) L 12/31/24 08:43
Absolute Monos (auto) 1.1 10^3/uL (0.1-0.6) H 12/31/24 08:43
Absolute Eos (auto) 0.5 10^3/uL (0-0.7) 12/31/24 08:43
Absolute Basos (auto) 0.1 10^3/uL (0-0.2) 12/31/24 08:43
Immature Gran % 1.6 % (0-0.5) H 12/31/24 08:43
Neutrophils % 72.4 % (42.2-75.2) 12/31/24 08:43
Lymphocytes % 9.5 % (20.5-51.1) L 12/31/24 08:43
Monocytes % 10.7 % (1.7-9.3) H 12/31/24 08:43
Eosinophils % 5.0 % (0-6) 09/04/25 08:43
Basophils % 0.8 % (0-2) 12/31/24 08:43
Creatinine 1.7 mg/dL (0.7-1.3) H 12/30/24 06:38
Vital Signs
Vital Signs
Temp Pulse Resp BP Pulse Ox
98.5 F 69 16 170/77 98
12/31/24 08:44 12/31/24 08:44 12/31/24 08:44 12/31/24 08:44 12/31/24 08:44

Documented by User: Benito Vizcarra MD 12/31/24 16:15
Plan
Plan
normocytic anemia has remained stable throughout hospitalization
no substrate deficiency. normal retic, normal LDH, and LFT pattern does not suggest hemolysis.
heme stool pending
I will check ESR, CRP, erythropoietin, SPEP, and FLC.
He may have anemia secondary to renal insufficiency. if this is the case, he would be eligible for OP ARTHUR for AOCKD if Hgb remains <10g/dL.
Hematology Addendum:
Patient seen and evaluated and agree w/ STUDENT SERVICES VICE PRESIDENT note and plan as outlined
-anemia - multifactorial - anemia of CKD, anemia of inflammation
-check stools
-labs as ordered above
-follow CBC
[2024-12-31 09:43] LABS: Blood Urea Nitrogen 39 mg/dl (9-20); Calcium 9.5 mg/dl (8.4-10.2); Carbon Dioxide 38 mmol/L (22-30); Chloride 97 mmol/L (98-107); Estimated Creatinine Clearance 55 ml/min; Glucose 131 mg/dl (70-99); Potassium 5.1 mmol/L (3.5-5.1); Sodium 139 mmol/L (135-145); eGFR 51.99
--- NOTE | 2024-12-31 09:59 | W.PN.HOSP.TC ---
Today's Communication/Plan
-
CT chest
CM for home BiPAP
Assessment / Plan
Assessment / Plan
64yo M with PMHx of DM, obesity, L carotid stent, CAD s/p CABG on 11/15/24 brought in by his brother with somnolence, weight gain and SOB, managed for CHF exacerbation and hypercapnia and AMS 2/2 hypercapnia and cannot exclude hypoglycemic
encephalopathy. Became AAOx3 without any signs of lethargy after starting to be compliant with nighttime BiPAP. Also found acute stroke most likely 2/2 paroxysmal Afib, so started on Eliquis
As per brother - patient had 5 days a week job in [employer] before his CABG in October, after the surgery he had decline with worsening cognition and lethargy most likely 2/2 non-compliance with CPAP. He was recommended CPAP years ago, but did not use it
and usually spent all his weekend sleeping.
For elevated liver tests seen since admission: outpatient w/u with GI recommended, as no acute findings on US while inpatient
A/P:
#Acute hypoxic hypercarbic respiratory failure 2/2 diastolic CHF exacerbation and CHRIS
Echo: EF 65%, moderate MR, mild/moderate TR
LAsix, daily weight, follow Cr and electrolytes
Cardio follows: cont diuresis
Pulm consult: for
BiPAP
#Dense opacification of the lower half of the right chest
CT chest as per pulm
#Acute metabolic encephalopathy
2/2 hypercarbia and hypoglycemia
Head CT: without acute findings
Neuro consult: stop Neurontin, MRI - found stroke
#Acute ischemic stroke
#Hx of CVA in 2023
#Carotid stenosis s/o L carotid stent
3.5 mm ACUTE ISCHEMIC WHITE [employer]TER INFARCTS in the periventricular left frontal lobe pruett radiata and in the subcortical right parietal lobe pruett radiata
Telemetry showed paroxysmal Afib
US carotid: no clinically significant stenosis on R, L stent patient
Neuro consult
statin, Eliquis
TSH WNL
HgbA1c 6.8%
LDL 40
Neurochecks
#NSVT
#paroxysmal Afib
BB
telemetry
cardio: start Eliquis
#Anemia of chronic disease
check FOBT - RN notified
follow CBC
LDH WNL - no concern for hemolysis
with normocytic anemia- hematology consult appropriate
#DM type 2 with hypoglycemia at home
No plan for SGLT-2 inh in view of hypoglycemia
AccuCheck, Insulin SS, and DM diet
#Elevated Cr, GARY on admission on CKD (unknown)
unclear baseline
follow Cr
#Hyperkalemia
most likely 2/2 hypercarbia
Avoid Aldactone, ACEi/ARB
#Aspiration pneumonia
Completed unasyn
#ALk phos elevation on admission
#Elevated ALT
follow LFT
US RUQ incomplete, but no signs of cholecystitis
GGT elevated - outpatient w/u with GI recommended
#obesity
BMI 37.5
decrease calorie intake
DVT ppx hep
Full code
I have spent at least 51min reviewing chart, test results, communication with consultants and providing direct patient care
Anticipated Discharge: Within 24 hours
Subjective/Interval History
-
Date of Service: December 31, 2024
Objective Data
-
Labs:
Laboratory Results
12/31/24
08:43
WBC 10.1
Hgb 9.2 L
Hct 30.5 L
Plt Count 247
Sodium 139
Potassium 5.1
Chloride 97 L
Carbon Dioxide 38 H
BUN 39 H
Creatinine 1.5 H
Glucose 131 H
Calcium 9.5
Vital Signs:
Vital Signs
Temp Pulse Resp BP Pulse Ox
98.5 F 69 16 170/77 98
12/31/24 08:44 12/31/24 08:44 12/31/24 08:44 12/31/24 08:44 12/31/24 08:44
I&O
12/30/24 12/31/24 01/01/25
06:59 06:59 06:59
Intake Total 540 / 540 1480 / 1480
Output Total 2049 2725 / 2725
Balance -1510 / -1510 -1245 / -1245
Review of Systems
-
History Source: Patient
All other systems: Reviewed and negative
Physical Exam
-
General: No Apparent Distress
Respiratory: Clear to Auscultation
Cardiac: Regular Rhythm
GI: Soft, Nontender and Nondistended
Musculoskeletal: No Clubbing, No Cyanosis and No Edema
Neuro: Awake, Alert, Oriented and AO x 3
Psych: Calm
--- NOTE | 2024-12-31 10:20 | CON.MR ---
Documented by User: Demetrius Maradiaga MD, Resident 01/01/25 09:52
Consultation
Consultation Request
Date/Time Consultation Requested: 12/31/24
Date/Time Consultation Performed: 12/31/24
Requesting Provider: Owen Person
Performing Provider: Dr. Corrigan
Reason for Consultation: CVA/encephalopathy
Medical History
-
Chief Complaint: Shortness of breath, altered mental status
History of Present Illness:
Mr. Red is a 64y M with PMH significant for ASCVD, carotid stenosis s/p stent, DM-II, CVA, CHF with preserved ejection fraction, hypertension, CHRIS not on CPAP, chronic back pain s/p epidural and obesity who presents to ED 12/20 complaining of
somnolence, SOB and weight gain. Patient underwent CABG x 3 at [facility] in [place] on 11/15/24. Following that he was at SNF in [place] before being discharged to his brother's care here in [place] (Saturday of last week). He has had home PT since
that time. Patient has gained 10 lbs in 1 week. He has been very SOB with any activity exertion. He sleeps 'all day' according to his brother. Patient stopped Lasix and Farxiga prior to his CABG and has not continued them. He was also started on
muscle relaxants for complaints of back pain during his SNF stay. Patient was told he has sleep apnea during his recent hospitalization and as maintained on PAP therapy while there (though he frequently removed the mask). Patient was admitted for
acute on chronic HF, acute hypoxemic respiratory failure, acidemia, chronic hypercapnia and hypoglycemia. In the hospital he received IV diuresis attempted BiPAP IV glucose and a cardiology consult. During his hospital stay patient was agitated
requiring a small dose of benzos and Haldol. Patient was started on antibiotics for empiric treatment of aspiration pneumonia and completed a course of Unasyn. Patient received upper extremity ultrasounds for suspected DVT, images negative. On
12/27 patient was noted to have multiple episodes of A-fib lasting up to 90 minutes. Pulmonology was consulted for waxing and waning mental status since admission most likely due to refusal of PAP in the setting of CHRIS/OHS and hypercapnia. Neurology
was consulted to rule out other causes for change in mental status. Head CT was ordered and negative. MRI of brain demonstrated 2 areas of subacute ischemic stroke bilaterally which most likely have worsened the patient's underlying encephalopathy.
Neurology recommended starting Eliquis and hold off on DAPT due to PAF. Became AAOx3 without any signs of lethargy after starting to be compliant with nighttime BiPAP.
Past Medical History
Past Medical History: Arrhythmias (Paroxysmal A-fib not on anticoagulation), CHF, CVA, HTN, NIDDM and Other (Obesity)
Past Surgical History: Cardiac (Carotid stent, CABG x 3) and Orthopedic (Bilateral BOOM)
Family History
Family History: Reviewed & Not Pertinent
Social History
Functional Level Premorbidity:
Independent for all activities.
Ambulation with RW
Current Funct Level: Ambulation, Transfer, UE/LE Dressing:
Transfer: Supervision
Ambulation: 80 feet with rolling walker and supervision, 25 feet x 2 without AD and min a
ADL: Eating set up, grooming supervision, toileting min A, upper extremity care min a, lower extremity care min a
Tobacco: Non-Smoker
Alcohol: None
Drug: None
Personal: Single
Living: With Family (Currently lives with older brother in [place], permanent address with brother in [place])
Is 24 hour care available: Yes
Number of Floors: 1
# Steps to Enter: 5
# Steps to Second Floor: 0
Potential First Floor Set Up: Yes
Driving: Yes
Employment: Employed
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
Allergies / Home Medications
Allergy/AdvReac Type Severity Reaction Status Date / Time
No Known Allergies Allergy Verified 12/20/24 19:34
�Medication �Instructions �Recorded �Confirmed �Last Taken �Type
gabapentin 100 mg capsule 100 mg PO BID Pain 12/20/24 12/20/24 Unknown History
insulin glargine 100 unit/mL (3 12 unit SC DAILY Diabetes 12/20/24 12/20/24 Unknown History
mL) subcutaneous pen
lidocaine 4 % topical patch 1 patch topical DAILY PRN pain 12/20/24 12/20/24 Unknown History
(Lidocaine Pain Relief)
metoprolol tartrate 37.5 mg tablet 37.5 mg PO BID Heart Failure 12/20/24 12/20/24 Unknown History
pantoprazole 40 mg tablet,delayed 40 mg PO DAILY Gastrointestinal 12/20/24 12/20/24 Unknown History
release Issue
tamsulosin 0.4 mg capsule 0.4 mg PO DAILY Urinary Issue 12/20/24 12/20/24 Unknown History
trazodone 50 mg tablet 50 mg PO HS Sleep 12/20/24 12/20/24 Unknown History
Review Of Systems
-
History Source: Patient
Constitutional: Reports No Symptoms; Denies Fever or Fatigue
Eye: Reports No Symptoms; Denies Blurry Vision or Tearing
EENT: Reports No Symptoms; Denies Sore Throat or Runny Nose
Respiratory: Reports No Symptoms; Denies Cough or Trouble Breathing
Cardiac: Reports No Symptoms; Denies Chest Pain, Diaphoresis or Palpitations
Abdomen/GI: Reports No Symptoms; Denies Abdominal Pain, Nausea, Diarrhea or Constipated
: Reports No Symptoms; Denies Dysuria or Frequency
Musculoskeletal: Reports Muscle Pain (Left lower extremity); Denies Joint Pain
Integumentary: Denies No Symptoms
Neurological: Reports No Symptoms; Denies Dizzy, Headache or Weakness
Physical Exam
Active Medications
Generic Name Dose Route Start Last Admin
Trade Name Freq PRN Reason Stop Dose Admin
Acetaminophen 650 mg 12/21/24 00:55 12/30/24 15:10
Acetaminophen 325 Mg Tablet PO 01/18/25 00:54 650 mg
Q4HPRN PRN Administration
Mild Pain / Temp > 101
Apixaban 5 mg 12/30/24 20:00 12/31/24 08:21
Apixaban (Eliquis) 5 Mg Tablet PO 01/27/25 19:59 5 mg
BID AMANDA Administration
Aspirin 81 mg 12/31/24 09:00
Aspirin 81 Mg Chewable Tablet PO 01/28/25 08:59
DAILY AMANDA
Dextrose 12.5 grams 12/20/24 23:52 12/22/24 01:18
Dextrose 50% (0.5 Grams/Ml) 50 Ml Syringe IV 01/17/25 23:51 12.5 grams
[id number] PRN Administration
hypoglycemia
Protocol
Diclofenac Sodium 0 gram 12/29/24 18:00 12/31/24 08:24
Diclofenac 1% Topical Gel 100 Gram Tube TOPICAL 01/26/25 17:59 100 gram
QID AMANDA Administration
Protocol
Duloxetine HCl 20 mg 12/27/24 11:00 12/31/24 08:21
Duloxetine Delayed Release 20 Mg Capsule PO 01/24/25 10:59 20 mg
DAILY AMANDA Administration
Furosemide 80 mg 12/29/24 20:00 12/31/24 08:23
Furosemide 80 Mg Tablet PO 01/26/25 19:59 80 mg
BID AMANDA Administration
Glucagon 1 mg 12/20/24 23:52 12/21/24 09:29
Glucagon 1 Mg Vial IM 01/17/25 23:51 1 mg
PRN PRN Administration
hypoglycemia
Protocol
Insulin Aspart 0 units 12/27/24 12:00 12/31/24 08:23
Insulin Aspart Low Resistance 300 Units/3 Ml Pen.Injctr SC 01/24/25 11:59 Not Given
AC AMANDA
Protocol
Lidocaine 1 patch 12/27/24 20:35 12/31/24 08:21
Lidocaine 4% Topical Patch TOPICAL 01/24/25 20:34 1 patch
DAILY AMANDA Administration
Protocol
Metoprolol Succinate 50 mg 12/24/24 20:00 12/31/24 08:22
Metoprolol 50 Mg Extended Release Tablet PO 01/21/25 19:59 50 mg
BID AMANDA Administration
Pantoprazole Sodium 40 mg 12/21/24 08:00 12/31/24 08:21
Pantoprazole 40 Mg Delayed Release Tablet PO 01/18/25 07:59 40 mg
DAILY AMANDA Administration
Patch Removal 0 patch 12/28/24 20:00 12/30/24 20:11
Remove Lidocaine Patch REMOVE 01/25/25 19:59 1 patch
DAILY@2000 AMANDA Administration
Sodium Chloride 0 flush 12/20/24 23:00
Sodium Chloride 0.9% (Flush) Syringe IV 01/17/25 22:59
PER PROTOCOL AMANDA
Tamsulosin HCl 0.4 mg 12/21/24 08:00 12/31/24 08:22
Tamsulosin 0.4 Mg Capsule PO 01/18/25 07:59 0.4 mg
DAILY AMANDA Administration
Trazodone HCl 50 mg 12/22/24 22:00 12/28/24 22:17
Trazodone 50 Mg Tablet PO 01/19/25 21:59 Not Given
On Hold: 12/29/24 13:15 HS AMANDA
Vital Signs
Temp Pulse Resp BP Pulse Ox
98.5 F 69 16 170/77 98
12/31/24 08:44 12/31/24 08:44 12/31/24 08:44 12/31/24 08:44 12/31/24 08:44
Height 5 ft 6 in
Actual Weight 97.749 kg
Body Mass Index (BMI) 34.8
Physical Exam
Physical Exam:
General Appearance/Observation: Well-developed, well-nourished individual in no apparent distress.
Pain/Comfort Assessment: Chronic back pain, worsened with prolonged standing
Mood/Affect: Appropriate
Integumentary/Operative Site:
Pressure Ulcer: absent
Other Type of Wound: Left lower extremity wound, site of graft harvest
Eyes: Conjunctiva/Lids: normal Pupils: pupils equal round and reactive to light and Accommodation
Ears/Nose/Throat: oral mucosa moist, throat clear. Lips/Teeth/Gums: normal
Neck: No muscle spasm or tenderness
Cardiovascular: Heart: regular rate, regular rhythm, no murmur
Pulses: dorsalis pedis 2+ bilaterally
Respiratory: Respiratory Effort/Chest Expansion: normal Auscultation: Clear to auscultation bilaterally in upper lung blum, Rales in lower lung blum
Gastrointestinal: abdomen not tender, no distension, normal abdominal bowel sounds
Genitourinary: No De Dios
Rectal Exam: Deferred
Extremities: Edema: None Cyanosis: None Trophic changes: None
Neurology Exam:
Orientation: Alert, Oriented to self, Time, Place, not situation
Memory: Intact immediately and at 3 minutes
Higher cortical function
Speech: Intact
Repetition: Intact
Comprehension: Intact
Two step command: Intact
Naming: Intact
Cranial Nerves:
CNII: Pupillary light reflex: Intact Visual Field: Intact
CN III, IV, : Extraocular muscles: Intact
CN V: Facial Sensation at Forehead: Intact , Maxilla: Intact, Mandible: Intact
CN VII: Facial movement: Asymmetric weakness in lower left face
CN VIII: Hearing: Normal
CN IX/X: Speech & swallow: Normal, Position of Uvula: Midline
CN XI: Shoulder shrug: Symmetric
CN XII: Tongue protrusion: Midline
Sensory:
Light touch: Intact in bilateral upper and lower extremities
Pinprick: Intact in bilateral upper and lower extremities
Proprioception: Intact
Temperature: Deferred
Reflexes:
Biceps: 0 bilaterally
Brachioradialis: 0 bilaterally
Triceps: 0 bilaterally
Patellar: 0 bilaterally
Achilles: 0 bilaterally
Babinski: Downgoing bilaterally
Clonus: None
Valerie: Negative bilaterally
Cerebellar: Dysmetria/Ataxia: None
Musculoskeletal:
Motor: (Manual muscle scale 0-5)
Muscle SA EF WE EE FF FA HF KE DF EHL PF
Right 5 5 5 5 5 5 4 4 5 5 5
Left 5 5 5 5 5 5 3 4 5 5 5
Tone: Normal in all extremities
Range of Motion: Passively within normal limits in all extremities
Lab Results
12/31/24 08:43
12/31/24 08:43
WBC 10.1 10^3/uL (4.8-10.8) 12/31/24 08:43
Hgb 9.2 g/dL (13.0-18.0) L 12/31/24 08:43
Hct 30.5 % (39.0-52.0) L 12/31/24 08:43
MCV 81.6 fL (80.0-94.0) 12/31/24 08:43
Plt Count 247 10^3/uL (130-400) 12/31/24 08:43
ESR 58 mm/hour (0-20) H 12/31/24 08:43
Sodium 139 mmol/L (135-145) 12/31/24 08:43
Potassium 5.1 mmol/L (3.5-5.1) 12/31/24 08:43
Chloride 97 mmol/L (98-107) L 12/31/24 08:43
Carbon Dioxide 38 mmol/L (22-30) H 12/31/24 08:43
BUN 39 mg/dl (9-20) H 12/31/24 08:43
Creatinine 1.5 mg/dL (0.7-1.3) H 12/31/24 08:43
eGFR 51.99 12/31/24 08:43
Glucose 131 mg/dl (70-99) H 12/31/24 08:43
Hemoglobin A1c 6.8 % (4.0-5.6) H 12/21/24 05:27
Calcium 9.5 mg/dl (8.4-10.2) 12/31/24 08:43
Phosphorus 4.8 mg/dl (2.5-4.5) H 12/21/24 05:27
Magnesium 1.9 mg/dl (1.6-2.3) 12/30/24 06:38
Total Bilirubin 0.4 mg/dl (0.2-1.3) 12/30/24 06:38
Direct Bilirubin 0.3 mg/dl (0.0-0.4) 12/30/24 06:38
AST 36 U/L (17-59) 12/30/24 06:38
ALT 76 U/L (0-50) H 12/30/24 06:38
Alkaline Phosphatase 227 U/L (38-126) H 12/30/24 06:38
Total Protein 5.8 g/dl (6.3-8.2) L 12/30/24 06:38
Albumin 3.2 g/dl (3.5-5.0) L 12/30/24 06:38
Diagnostic Results
As per HPI.
Assessment / Plan
Assessment
Mr. Red is a 64y M with PMH significant for ASCVD, carotid stenosis s/p stent, DM-II, CVA, CHF with preserved ejection fraction, hypertension, CHRIS not on CPAP, chronic back pain s/p epidural and obesity who presents to ED 12/20 complaining of
somnolence, SOB and weight gain. Patient underwent CABG x 3 at [facility] in [place] on 11/15/24. Patient was admitted for acute on chronic HF, acute hypoxemic respiratory failure, acidemia, chronic hypercapnia and hypoglycemia. In the hospital MRI
of brain demonstrated 2 areas of subacute ischemic stroke bilaterally.
Plan
PM&R PT/OT to increase independence with ADLs, improve balance, coordination, endurance, strength, mobility, community reintegration, decreased burden of care on others and family education.
CVA: Secondary prophylaxis with aspirin, blood pressure control (SBP less than 180 and diastolic less than 100 to participate with therapy for ischemic stroke). Continue to monitor neurologic status.
Hard of hearing: Patient is having difficulty with hearing and we discussed the need for hearing aids to properly engage in conversations and not be dismissed by others because not able to understand what they're saying. This can lead to isolation,
depression and cognitive decline. Patient has hearing aids.
HTN: continue medications, monitor closely
HLD: Hold statin
Coronary artery disease : Aspirin, beta-sarah
S/P CABG: Sternal precautions. Aspirin, Eliquis, BP control. Monitor incision, pain control.
Atrial fibrillation: Continue anticoagulation and rate control medications.
CHF: EF 60�65%, beta sarah, monitor fluid status
DM II: Accu-Cheks, insulin sliding scale, metformin, lispro, lantus.
CHRSI: CPAP use.
Bilateral lower extremity edema: Consider TEDS as able. Increased fluid will cause more force requirement to move lower extremities which requires more strength and increases fatigue.
Anemia: Likely multifactorial. Continue to monitor.
Skin: monitor for pressure sores/rashes/lesions.
Pain: acetaminophen or oxycodone as needed.
Bowel: Colace and Senna, PRN bisacodyl.
Bladder: Time void, PVRs, PRN straight cath.
GI Prophylaxis: Pantoprazole
DVT Prophylaxis: Note chemoprophylaxis
Pulmonary: Incentive spirometry
Safety: Continue to reinforce assistance with all transfers.
Code Status: Full code
Dispo: SNF Social history reviewed.
Functional and Medical Goals: Modified Independent with ADL�s, ambulation, transfers
Summary
-
Things that must be addressed in Hospital prior to discharge:
Patient must be stable on oral pain medications.
Blood pressure must be less than 180 systolic and 100 diastolic for 24 hours before being stable for transfer to SNF/acute rehab.
Please give blood pressure parameters.
Discharge Destination: SNF
Summary of recommendations:
- Discharge Destination: SNF
Will sign off, please re-consult if needed.
Thank you for allowing me to care for your patient. Please contact me with any questions or concerns.
Comments
-
This note was dictated using a voice recognition system. Please excuse any typographical errors from trap puller. If you believe there are any discrepancies, please notify our office.

Documented by User: Archie Corrigan MD 01/01/25 23:38
Physical Exam
Physical Exam
Physical Exam:
General Appearance/Observation: Well-developed, well-nourished male in no apparent distress.
Pain/Comfort Assessment: Chronic back pain, worsened with prolonged standing
Mood/Affect: Appropriate
Integumentary/Operative Site: Left lower extremity wound, site of graft harvest
Eyes: Conjunctiva/Lids: normal Pupils: pupils equal round and reactive to light and Accommodation
Ears/Nose/Throat: oral mucosa moist, throat clear. Lips/Teeth/Gums: normal
Neck: No muscle spasm or tenderness
Cardiovascular: Heart: regular rate, regular rhythm, no murmur
Pulses: dorsalis pedis 2+ bilaterally
Respiratory: Respiratory Effort/Chest Expansion: normal Auscultation: Clear to auscultation bilaterally in upper lung blum, Rales in lower lung blum
Gastrointestinal: abdomen not tender, no distension, normal abdominal bowel sounds
Genitourinary: No De Dios
Rectal Exam: Deferred
Extremities: Edema: None Cyanosis: None Trophic changes: None
Neurology Exam:
Orientation: Alert, Oriented to self, Time, Place, not situation
Memory: Intact recent medical concerns
Repetition: Intact
Comprehension: Intact
Two step command: Intact
Naming: Intact
Cranial Nerves:
CNII: Pupillary light reflex: Intact Visual Field: Intact
CN III, IV, : Extraocular muscles: Intact
CN V: Facial Sensation at Forehead: Intact , Maxilla: Intact, Mandible: Intact
CN VII: Facial movement: Asymmetric weakness in lower left face
CN VIII: Hearing: Normal
CN IX/X: Speech & swallow: Normal, Position of Uvula: Midline
CN XI: Shoulder shrug: Symmetric
CN XII: Tongue protrusion: Midline
Sensory:
Light touch: Intact in bilateral upper and lower extremities
Pinprick: Intact in bilateral upper and lower extremities
Proprioception: Intact
Temperature: Deferred
Reflexes:
Biceps: 0 bilaterally
Brachioradialis: 0 bilaterally
Triceps: 0 bilaterally
Patellar: 0 bilaterally
Achilles: 0 bilaterally
Babinski: Downgoing bilaterally
Clonus: None
Valerie: Negative bilaterally
Cerebellar: Dysmetria/Ataxia: None
Musculoskeletal: Motor: (Manual muscle scale 0-5)
Muscle SA EF WE EE FF FA HF KE DF EHL PF
Right 5 5 5 5 5 5 4 4 5 5 5
Left 5 5 5 5 5 5 3 4 5 5 5
Tone: Normal in all extremities
Range of Motion: Passively within normal limits in all extremities
Assessment / Plan
Plan
PM&R PT/OT to increase independence with ADLs, improve balance, coordination, endurance, strength, mobility, community reintegration, decreased burden of care on others and family education.
CVA: Secondary prophylaxis with aspirin, blood pressure control (SBP less than 180 and diastolic less than 100 to participate with therapy for ischemic stroke). Continue to monitor neurologic status.
Hard of hearing: Patient has hearing aids.
Acute metabolic encephalopathy: Probably secondary to hypercarbia and hypoglycemia. Also with CVA
Acute hypoxic hypercarbic respiratory failure 2/2 diastolic CHF exacerbation and CHRIS: Doing better with BiPAP
HTN: Metoprolol and Lasix, monitor closely
HLD: Hold statin
Coronary artery disease : Aspirin, beta-sarah, BP control
Atrial fibrillation: Eliquis anticoagulation and rate control with beta-sarah.
Diastolic CHF: EF 60�65%, beta sarah, Lasix, monitor fluid status
DM II with hypoglycemia: Accu-Cheks, insulin sliding scale, diabetic diet, possible SGLT�2 inhibitor per primary team
CHRIS: CPAP use.
Anemia of chronic disease: No focal bleeding noted. Fecal occult blood ordered per primary team.
Skin: monitor for pressure sores/rashes/lesions.
Pain: acetaminophen as needed.
Bowel: Colace and Senna, PRN bisacodyl.
Bladder: Time void, PVRs, PRN straight cath. On Flomax
GI Prophylaxis: Pantoprazole
DVT Prophylaxis: Eliquis, mechanical
Morbid obesity: Weight loss management
Pulmonary: Incentive spirometry
Safety: Continue to reinforce assistance with all transfers.
Code Status: Full code
Dispo: SNF Social history reviewed.
Functional and Medical Goals: Modified Independent with ADL�s, ambulation, transfers
Attending Statement: I performed a history and examined the patient today.� I reviewed the care plan with therapy, nursing, and the resident.� I agree with the history and ROS above as modified.� The physical exam and plan documented reflects my
examination and plan.� � �A total of 60 minutes were spent with the patient preparing for the evaluation, obtaining history, performing examination and evaluation, counseling, data review, case management, care coordination, order department supervisor, and EMR
documentation.
Summary
-
Discharge Destination: SNF
Will sign off, please re-consult if needed.
Thank you for allowing me to care for your patient. Please contact me with any questions or concerns.
[2024-12-31 10:29] LABS: C-Reactive Protein 32.80 mg/L (0.0-10.00)
[2024-12-31 11:31] VITALS: BP 153/75; PULSE 69; O2SAT 99
--- NOTE | 2024-12-31 11:48 | W.PN.PUL3 ---
Today's Communication / Plan
-
Continue nocturnal BiPAP-wait for arrangements regarding noninvasive mechanical ventilation upon discharge.
Continue oral diuretics
Outpatient radiographic follow-up for right sided abnormality-pleural effusion/atelectasis
Continue oxygen supplementation with ambulation up to 2 to 3 L.
Hopefully can wean off prior to discharge.
Will retest closer to discharge
Continue with discharge planning-outpatient pulmonary follow-up
Assessment
-
Patient is a 64-year-old male with previous history of diabetes, obesity, CHRIS not on CPAP, CAD complaining of shortness of breath and weight gain. Patient was notably somnolent on arrival, he is noted by family to be sleepy and lethargic most days.
He had recently undergone CABG at a hospital in [place] on 11/15/2024. Since then he apparently gained 10 pounds and had become more short of breath with activity. ABG completed on admission demonstrating acute on chronic hypercarbia. He has a
history of CHRIS but is noncompliant with CPAP. He has had with waxing and waning mental status since admission 12/20/2024. He has been intermittently refusing PAP as well. We are consulted for hypercarbia management.
Acute on chronic hypercarbic respiratory failure on BiPAP
Medical noncompliance
Waxing/waning mental status
Restrictive lung disease due to obesity
Anemia
GARY
Hyperglycemia
Conditions present prior to admission
Obesity
CHRIS not on CPAP, noncompliant
Diabetes
Hypertension
ASCVD
TIA / CVA
Carotid Stenosis
CHF
CABG x 3 (11/15/24 - [place], [place])
Bilateral BOOM
Carotid Stent
Plan
-
From the pulmonary perspective: Now motivated to use BiPAP.
Mental status back to baseline.
Discussion with the brother at the bedside with Dr. Martinez 12/30/2024: I am recommending noninvasive mechanical ventilation prior to discharge given high risk for readmission and complications with obesity hypoventilation syndrome/right hemidiaphragm
elevation/paralysis on CAT scan 12/31/2024.
-
Neurology evaluation: Noted. MRI with evidence of prior CVA.
Antiplatelets recommended
History of atrial fibrillation in the past-anticoagulation also recommended per cardiology.
-
Prior history of lung disease is noted including CHRIS with suspected OHS-likely restrictive lung disease from obesity.
Right hemidiaphragm elevation on CAT scan 12/31/2024: Right subsegmental atelectasis. Pleural effusion with loculated fluid on the minor fissure.
-
He has medical noncompliance to CPAP therapy, was told as an outpatient to undergo sleep study but refused
Compliance with BiPAP encouraged while in the hospital- Now she is willing to get ventilator prior to discharge. She is committed to follow-up.
Most recent VBG appears compensated.
This patient is 64-year-old man with obstructive sleep apnea/obesity hypoventilation syndrome/restrictive lung disease from obesity. Multiple admissions to the hospital with shortness of breath and respiratory failure/heart failure. His most
recent pCO2 is 60 on 3 L of oxygen.
Has exertional dyspnea. Patient is very limited due to his breathing. Due to his hypoventilation, patient have risk of worsening chronic respiratory failure. I have considered bilevel, bilevel ST and bilevel VAPS therapy and they all have been
ruled out due to patient's worsening condition. The patient now requires a unique mode of ventilation not offered unless costly options. The patient requires a device that we will not fail in the event of a power failure and is also portable for
mobility within the home when needed. Due to the patient's worsening condition, I am prescribing noninvasive ventilation therapy to decrease the chance of continued unplanned expensive medical encounters including physician office visits,
emergency/urgent care treatment and hospital admissions.
Should be discharged on noninvasive mechanical ventilator.
-
Not requiring oxygen supplementation at rest per physical therapy notes.
On 12/29/2024 required up to 3 L with ambulation.
Would retest closer to discharge. Hopefully oxygen can be weaned off after diuresis.
Continue diuresis-per cardiology.
Incentive spirometer-encouraged
Increase activity as able-physical therapy/Occupational Therapy.
-
CXR: 12/23/2024:-pulmonary edema
There is likely a component of heart failure, proBNP 3960 on admission
Ongoing diuresis per cardiology.
Prior ECHO results are reviewed indicating normal function, mild to moderate valvular heart disease
Cardiology following the patient, renal function being followed as well.
Repeat chest x-ray tomorrow 12/31/2024.
Abnormal chest x-ray:
Chest x-ray this morning 12/31/2024: Demonstrated improved pulmonary edema pattern.
Opacity on the right side did not clear.
CT chest 12/31/2024: Reviewed by me showed significant right hemidiaphragm elevation/paralysis. Compressive atelectasis. Small pleural effusion with loculation in the minor fissure. Did not appreciate any mass.
Doubt infiltrate is related to infection as the patient is not behaving as such.(Will wait for official report)
Increase activity
Weight loss
Incentive spirometer
Continue diuresis
Patient will need radiographic follow-up in the outpatient setting-repeat CAT scan in the next 4 to 6 weeks to document improvement/resolution.
-
Certainly right hemidiaphragm paralysis/dysfunction contributing to shortness of breath/hypoxemia and chronic hypercapnia.
Continue BiPAP as above.
Weight loss measures recommended
Obesity likely contributing to respiratory symptoms
Physical therapy/Occupational Therapy now the patient is more awake. Continue as tolerated.
Will need outpatient pulmonary evaluation in our office for PFTs and 6MWT
Risk factors assessed for underlying sleep disordered breathing also noted, recommend outpatient PSG/sleep evaluation-hopefully patient will follow-up.
-
Hopefully discharge soon.
Diagnostic Data
Chest X-Ray: 12/23/24-Findings suggesting pulmonary edema with cardiomegaly.
12/20/24-Moderate elevation of the right hemidiaphragm. Findings suggesting interstitial pulmonary edema pattern with small bilateral pleural effusions.
CT Scan:
Echo: 12/21/24- 1. Normal left ventricular size and systolic function. Ejection fraction is 60-65%.
2. Moderate mitral regurgitation.
3. Mild/moderate tricuspid regurgitation. Estimated pulmonary artery pressure of 39 mmHg assuming a right atrial pressure of 8 mmHg. Mildly elevated PASP.
4. No prior study available for comparison.
PFT's:
Reports and relevant images were personally reviewed.
Subjective Data
-
Date of Service:
Date of Service: December 31, 2024
Chief Complaint: Pulmonary Follow Up (Chronic hypercapnic respiratory failure/hypoxemic respiratory failure)
Subjective:
Patient denies any significant shortness of breath
Denies increased cough or phlegm production
Review of Systems
General: Fever (n)
Cardiopulmonary: Dyspnea (improved)
GI: Abdominal Pain (n) and Nausea (n)
Objective Data
Data Reviewed
Vital Signs / I&O / Oxygen:
Vital Signs
Temp Pulse Resp BP Pulse Ox
98.5 F 69 16 170/77 98
12/31/24 08:44 12/31/24 08:44 12/31/24 08:44 12/31/24 08:44 12/31/24 08:44
Intake and Output
12/30/24 12/31/24 01/01/25
06:59 06:59 06:59
Intake Total 540 / 540 1480 / 1480
Output Total 2049 2725 / 2725
Balance -1510 / -1510 -1245 / -1245
SaO2 98
Nasal Cannula flow liters per 2
minute
Physical Exam
General: Comfortable and Other (NAD)
HEENT: Normocephalic, Anicteric and Moist Mucous Membranes
Cardiovascular: S1-S2 and Regular Rhythm
Respiratory: Clear and Non-Labored Respirations
GI: Soft, Non Distended and Non Tender
Neurology: Awake and Unresponsive (refusing to speak, saying occasional words, not answering questions)
Skin: Warm and Dry
Labs/Micro/Reports
Lab Data
12/31/24 08:43
12/31/24 08:43
Microbiology
12/23/24 21:56 Blood/Venous Blood Culture - Final
No Growth - Final Report
12/23/24 18:07 Blood/Venous Blood Culture - Final
No Growth - Final Report
12/28/24 10:54 Blood/Venous Blood Parasites Smear - Final
[2024-12-31 11:52] VITALS: BP 179/82
[2024-12-31 12:11] LABS: Glucose - Point of Care 190 mg/dl (70-99)
[2024-12-31] MEDS: NOVOLOG FLEXPEN-LOW RESISTANCE 1 UNITS SC ×2 (13:09→17:18)
[2024-12-31] MEDS: LOW STRENGTH ASPIRIN 81 MG PO (13:09)
--- NOTE | 2024-12-31 13:55 | CM ---
CM reviewed chart, patient seen bedside, discussed PMR consult placed, preference is for [facility]. Patient agreeable to SNF as back up in [facility], aware will need approval through insurance. Patient will require NIV per Pulm, patient
aware and agreeable for set up- [employer] provided NIV prescription, will fax to [phone]. CM will continue to follow for all discharge planning needs.
Plan; PMR consult, Acute Rehab, SNF back up, will need NIV through [employer]
--- NOTE | 2024-12-31 14:00 | W.PN.UPDATE ---
Update Note
Progress Note Update
Patient requires noninvasive volume ventilation due to obesity hypoventilation syndrome, bilevel has been considered and ruled out, including bilevel VAPS. Patient requires pressure greater than 30 cm of water which is not supported by bilevel VAPS
due to body habitus. If there are additional ventilator will exceed pressures greater than 30 cm of water with a max pressure of 50 cm of water.
[2024-12-31 16:10] VITALS: BP 167/77
[2024-12-31 17:06] LABS: Glucose - Point of Care 177 mg/dl (70-99)
[2024-12-31 18:53] LABS: Hepatitis C Antibody Negative (Negative)
[2024-12-31] MEDS: DICLOFENAC 1% TOPICAL GEL 4 GRAM TOPICAL (20:47)
[2024-12-31] MEDS: REMOVE LIDOCAINE PATCH 1 PATCH REMOVE (20:47)
[2024-12-31 23:00] VITALS: BP 116/65
--- NOTE | 2025-01-01 02:54 | RESPNOTE ---
Attempted to place the PT on his BIPAP around 2229 and he refused. He said he was too cold to have that cold air from the machine blowing in his face. He was offered a warm blanket, but still, he refused. A second attempt was just made, where he
was agreeable to wear the mask and then he ripped it off. I went to place again and he said 'if you put it on, I will take it off. I dont care what the hospital says.' he was subsequently placed back on his 2 L n/c.
--- NOTE | 2025-01-01 03:14 | PTCARENOTE ---
Patient was agreeable to wear Bipap; however, refused it when RT came. He stated that 'he's cold and didn't want cold air in his face' He was offered another blanket, but didn't want it. Later in the night, patient was agreeable for Bipap and
allowed RT to put it on, but took it off shortly after, saying the same about being cold and declined heated blanket. Patient was educated that wearing Bipap will help with discharge process. He continued to refuse and put nasal cannual back on.
[2025-01-01 06:00] VITALS: BMI 34.0
[2025-01-01 07:25] VITALS: BP 154/64
[2025-01-01 08:35] LABS: Glucose - Point of Care 142 mg/dl (70-99)
[2025-01-01] MEDS: NOVOLOG FLEXPEN-LOW RESISTANCE SC (08:40)
[2025-01-01] MEDS: PROTONIX 40 MG PO (08:41)
[2025-01-01] MEDS: LIDOCAINE 4% PATCH 1 PATCH TOPICAL (08:41)
[2025-01-01] MEDS: CYMBALTA DELAYED RELEASE 20 MG PO (08:41)
[2025-01-01 08:42] VITALS: BP 154/64
[2025-01-01] MEDS: TOPROL XL 50 MG PO ×2 (08:42→19:59)
[2025-01-01] MEDS: LOW STRENGTH ASPIRIN 81 MG PO (08:42)
[2025-01-01] MEDS: FLOMAX 0.4 MG PO (08:42)
[2025-01-01] MEDS: ELIQUIS 5 MG PO ×2 (08:42→19:57)
[2025-01-01] MEDS: LASIX 80 MG PO ×2 (08:43→19:58)
[2025-01-01] MEDS: DICLOFENAC 1% TOPICAL GEL 100 GRAM TOPICAL ×4 (08:43→21:38)
[2025-01-01 09:18] LABS: Blood Urea Nitrogen 33 mg/dl (9-20); Calcium 9.2 mg/dl (8.4-10.2); Carbon Dioxide 39 mmol/L (22-30); Chloride 94 mmol/L (98-107); Estimated Creatinine Clearance 48 ml/min; Glucose 130 mg/dl (70-99); Potassium 4.8 mmol/L (3.5-5.1); Sodium 138 mmol/L (135-145); eGFR 44.74
--- NOTE | 2025-01-01 10:57 | W.PN.HOSP.TC ---
Today's Communication/Plan
-
physiatry recommends STR - medically stable for d/c, CM informed, pedning bed
Assessment / Plan
Assessment / Plan
64yo M with PMHx of DM, obesity, L carotid stent, CAD s/p CABG on 11/15/24 brought in by his brother with somnolence, weight gain and SOB, managed for CHF exacerbation and hypercapnia and AMS 2/2 hypercapnia and cannot exclude hypoglycemic
encephalopathy. Became AAOx3 without any signs of lethargy after starting to be compliant with nighttime BiPAP, however remain non-compliant. Also found acute stroke most likely 2/2 paroxysmal Afib, so started on Eliquis
As per brother - patient had 5 days a week job in [employer] before his CABG in October, after the surgery he had decline with worsening cognition and lethargy most likely 2/2 non-compliance with CPAP. He was recommended CPAP years ago, but did not use it
and usually spent all his weekend sleeping.
For elevated liver tests seen since admission: outpatient w/u with GI recommended, as no acute findings on US while inpatient
Hematology evaluated and started workup. Will need outpatient referral
A/P:
#Acute hypoxic hypercarbic respiratory failure 2/2 diastolic CHF exacerbation and CHRIS
Echo: EF 65%, moderate MR, mild/moderate TR
LAsix, daily weight, follow Cr and electrolytes
Cardio follows: cont diuresis
Pulm consult: for
BiPAP
#Dense opacification of the lower half of the right chest
CT chest as per pulm
#Acute metabolic encephalopathy
2/2 hypercarbia and hypoglycemia
Head CT: without acute findings
Neuro consult: stop Neurontin, MRI - found stroke
#Acute ischemic stroke
#Hx of CVA in 2023
#Carotid stenosis s/o L carotid stent
3.5 mm ACUTE ISCHEMIC WH[employer] INFARCTS in the periventricular left frontal lobe pruett radiata and in the subcortical right parietal lobe pruett radiata
Telemetry showed paroxysmal Afib
US carotid: no clinically significant stenosis on R, L stent patient
Neuro consult
statin, Eliquis
TSH WNL
HgbA1c 6.8%
LDL 40
Neurochecks
#NSVT
#paroxysmal Afib
BB
telemetry
cardio: start Eliquis
#Anemia of chronic disease
check FOBT - RN notified
follow CBC
LDH WNL - no concern for hemolysis
with normocytic anemia- hematology consult: might have anemia 2/2 CKD- Epo pending, will need outpatient follow up
ESR/CRP elevated, SPEP and FLC sent
#DM type 2 with hypoglycemia at home
No plan for SGLT-2 inh in view of hypoglycemia
AccuCheck, Insulin SS, and DM diet
#Elevated Cr, GARY on admission on CKD (unknown)
unclear baseline
follow Cr
#Hyperkalemia
most likely 2/2 hypercarbia
Avoid Aldactone, ACEi/ARB
#Aspiration pneumonia
Completed unasyn
#ALk phos elevation on admission
#Elevated ALT
follow LFT
US RUQ incomplete, but no signs of cholecystitis
GGT elevated - outpatient w/u with GI recommended
#obesity
BMI 37.5
decrease calorie intake
DVT ppx hep
Full code
I have spent at least 36min reviewing chart, test results, communication with consultants and providing direct patient care
Anticipated Discharge: Within 24 hours
Subjective/Interval History
-
Date of Service: January 01, 2025
Objective Data
-
Labs:
Laboratory Results
01/01/25
08:07
Sodium 138
Potassium 4.8
Chloride 94 L
Carbon Dioxide 39 H
BUN 33 H
Creatinine 1.7 H
Glucose 130 H
Calcium 9.2
Vital Signs:
Vital Signs
Temp Pulse Resp BP Pulse Ox
97.8 F 73 20 154/64 98
01/01/25 07:25 01/01/25 08:42 01/01/25 07:25 01/01/25 08:42 01/01/25 07:25
I&O
12/31/24 01/01/25 01/02/25
06:59 06:59 06:59
Intake Total 1480 / 1480 780 / 780
Output Total 2725 / 2725 3390 / 3390
Balance -1245 / -1245 -2610 / -2610
Physical Exam
-
General: No Apparent Distress
Neuro: Awake, Alert, Oriented and AO x 3
Psych: Calm
--- NOTE | 2025-01-01 12:05 | CM ---
Addendum entered by Angela Arevalo 01/01/25 15:33:
CM spoke with patients insurance ([id number]), auth approved 01/02-01/09, next review 01/08, CM assigned Jessie Quezada , , patient is also covered through insurance for emergent and non emergent transport, confirmed
with insurance that Acute Care transport is in network and transport covered. Auth information provided to liaison at [facility]. Phone call to patients Benito cuevas, aware auth approved and plan for d/c tomorrow. NIV script faxed to [facility],
confirmed, will follow patient at [facility].
Plan; d/c tomorrow 01/02 to [facility], will require ambulance transport
[facility]
Report: [phone]

Addendum entered by Angela Arevalo 01/01/25 13:06:
NASRA spoke with liaison from [facility], able to offer patient a bed. Two phone calls placed to patients brother to confirm agreeable with [facility], will initiate auth if agreeable.

Dr Dubose: [phone]
Original Note:
CM reviewed chart, spoke with patients brother and BEE, discussed PMR consult recommending SNF. Referrals placed to 10 local SNFS, [facility], [facility], [facility], [place] [facility], and [place] reviewing. Patient will require auth. NIV paperwork
on chart to be signed, will fax to Quyen at [facility]. CM will update patients Benito cuevas, once accepting facility found. Benito inquiring if he can take patient home while bed search continues, CM discussed unfortunately not an option. CM will
continue to follow for all discharge planning needs.
Plan; SNF pending accepting facility, will require auth
--- NOTE | 2025-01-01 12:27 | W.DCSUMMARY ---
Documented by User: Owen Machuca MD 01/01/25 15:33
Discharge Summary
Discharge Data
Date of Admission: 12/20/24
Date of Discharge: 01/01/25
-
Pending Results: Yes
Additional Pending Results:
SPEP, light chain
Hospital Course
64yo M with PMHx of DM, obesity, L carotid stent, CAD s/p CABG on 11/15/24 brought in by his brother with somnolence, weight gain and SOB, managed for CHF exacerbation and hypercapnia and AMS 2/2 hypercapnia and cannot exclude hypoglycemic
encephalopathy. Became AAOx3 without any signs of lethargy after starting to be compliant with nighttime BiPAP, however remain non-compliant. Also found acute stroke most likely 2/2 paroxysmal Afib, so started on Eliquis
As per brother - patient had 5 days a week job in [employer] before his CABG in October, after the surgery he had decline with worsening cognition and lethargy most likely 2/2 non-compliance with CPAP. He was recommended CPAP years ago, but did not use it
and usually spent all his weekend sleeping.
For elevated liver tests seen since admission: outpatient w/u with GI recommended, as no acute findings on US while inpatient
Hematology evaluated and started workup. Will need outpatient referral
I have spent at least 36min reviewing chart, test results, communication with consultants and providing direct patient care
Patient was managed for:
#Acute hypoxic hypercarbic respiratory failure 2/2 diastolic CHF exacerbation and CHRIS
#Dense opacification of the lower half of the right chest
#Acute metabolic encephalopathy
#Acute ischemic stroke
#Hx of CVA in 2023
#Carotid stenosis s/o L carotid stent
#NSVT
#paroxysmal Afib
#Anemia of chronic disease
#DM type 2 with hypoglycemia at home
#Elevated Cr, GARY on admission on CKD (unknown)
#Hyperkalemia
#Aspiration pneumonia
#ALk phos elevation on admission
#Elevated ALT
#obesity
Discharge Plan
-
Patient Disposition: Longterm/SNF
Discharge Diagnosis/Procedures: Acute on chronic hypercarbic respiratory failure on BiPAP
Medical noncompliance
CHRSI (not on CPAP, non-compliant)
Suspected Obesity Hypoventilation Syndrome
High risk for readmission and complications with obesity hypoventilation syndrome/right hemidiaphragm elevation/paralysis on CAT scan 12/31/2024
Waxing/waning mental status
Restrictive lung disease due to obesity
Anemia
GARY
Hyperglycemia
Diabetes Mellitus
Moderate Elevation of the Right Hemidiaphragm
Pulmonary Edema
Small Bilateral Pleural Effusions
Hypertension
Obesity
ASCVD
TIA / CVA
Carotid Stenosis
CHF
CABG x 3 (11/15/24 - [place], [place])
Bilateral BOOM
Carotid Stent
Non-sustained ventricular tachycardia

Abdominal Ultrasound (as per radiologist's report):
'Findings:
Incomplete exam due to patient condition/not cooperating. Only the gallbladder and liver were imaged.
Liver is unremarkable in echotexture without evidence of focal lesion. The portal and hepatic vessels appear grossly patent. Perihepatic ascites is present.
Probable gallbladder sludge present. Mild diffuse gallbladder wall thickening measuring up to 4 mm. No discrete gallstones, pericholecystic fluid or sonographic Gomes's sign.
IMPRESSION:
1. Incomplete exam.
2. Probable gallbladder sludge without overt sonographic evidence for acute cholecystitis.'

MRI Brain (as per radiologist's report):
'FINDINGS:
There are 3.5 mm acute ischemic infarcts in the periventricular white matter of the left frontal lobe pruett radiata and in the subcortical white matter of the right parietal lobe pruett radiata (image #152, series #302) demonstrating restricted
diffusion and mild cytotoxic edema. There is a mild amount of low T1 and high T2/FLAIR signal intensity white matter leukoaraiosis in the periventricular white matter of both cerebral hemispheres. The right intracranial vertebral artery appears
tortuous ostium midline and causing mild compression on the right side of the medulla.
There is mild diffuse cerebral and cerebellar volume loss with associated mild ex vacuo dilatation of the ventricular system. There is no midline shift or herniation.
There are 2 tiny 3 mm foci of low T2 gradient echo/low susceptibility signal in the right cerebellar hemisphere and a tiny 3 mm focus of low T2 gradient echo, low susceptibility signal in the anterior medial left frontal lobe consistent with tiny
foci of hemosiderin deposition from chronic intraparenchymal hemorrhages.
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 There is mild mucosal thickening throughout the ethmoid air cells and in the right maxillary sinus. There is mild mucosal thickening in the middle and inferior nasal turbinates. There is moderate
fluid in the left mastoid air cells and a small to moderate amount of fluid in the right mastoid air cells. The orbits appear normal.
IMPRESSION:
1. Small 3.5 mm ACUTE ISCHEMIC WHITE MATTER INFARCTS in the periventricular left frontal lobe pruett radiata and in the subcortical right parietal lobe pruett radiata.
2. Mild periventricular white matter leukoaraiosis in the frontal and parietal lobes.
3. Tiny chronic intraparenchymal microhemorrhages in the left frontal lobe and right cerebellar hemisphere.
4. Mild diffuse cerebral and cerebellar volume loss.
5. Mild to moderate fluid in the mastoid air cells.'

Carotid Ultrasound (as per vascular surgeon's report):
'IMPRESSION: Somewhat limited study secondary to patient movement and depth of vessels. However, no right internal carotid artery plaque or stenosis is noted. Left carotid stent is patent with no obvious in-stent restenosis. Antegrade flow bilateral
vertebral arteries.'

CT Chest without IV Contrast (as per radiologist's report):
'FINDINGS:
Opacification of the lower right hemithorax on recent chest radiographs predominantly as a result of marked elevation of the right hemidiaphragm. There is some right lower lobe opacification most likely predominantly representing some atelectasis
with some air bronchograms and small tiny pleural effusion which extends into the right major fissure (small pseudotumor). Evaluation for central mass or hilar adenopathy is markedly limited without intravenous contrast. The included left lung
contains some mild subsegmental atelectasis and/or scarring.
Coronary artery calcifications are noted. The heart is likely mildly enlarged. Cannot exclude small anterior pericardial effusion. There is no gross significant mediastinal or bilateral axillary lymphadenopathy.
Degenerative changes are seen within the thoracic spine. Sternal wires are noted.
Within the small portion of included upper abdomen, there is small volume right sided abdominal ascites. Faint high attenuation density is seen within the gallbladder which could represent sludge.
IMPRESSION: Majority of opacification of the lower right hemithorax as a result of marked elevation of the right hemidiaphragm.
Some accompanying mild right lower lobe opacity most likely representing subsegmental atelectasis or less likely pneumonia with small/tiny right pleural effusion extending into the fissure (pseudotumor). Unfortunately, especially without intravenous
contrast, mass in the lower medial right hemithorax cannot be excluded.
Small volume free fluid in the right abdomen.
Faint high attenuation density within the gallbladder most likely representing sludge.'
Diet: Low Cholesterol
Blood Work: BMP in 1 week
Activity Restrictions/Additional Instructions:
Follow-up the following labs (ordered in hospital, but still pending): erythropoietin, SPEP, FLC
Patient MUST be continued on BiPAP/Noninvasive mechanical ventilation [facility] every day (this was arranged in the hospital)
Continue low rate supplemental oxygen to maintain pulse ox above 90%
Continue Incentive Spirometer. Activity as tolerated
Patient will need radiographic follow-up in the outpatient setting-repeat CAT scan in the next 4 to 6 weeks to document improvement/resolution. Cannot completely rule out a mass.
Wound Care Instructions
L medial distal lower leg : clean with soap and water, dry dressing change after showering daily and prn drainage.
moisturize legs daily after showering
Follow up with surgeon
BiPAP 15/5 nightly
Follow up with your primary care provider regarding your serum protein electrophoresis, serum free light chains, and erythropoietin levels that were pending at discharge.
If you have persistent anemia with Hgb <10 despite ferritin >100, IS <20 in follow up with your primary care provider then your primary care provider should refer to hematology OP to consider erythropoietin injections
Referrals:
Dwain Martinez MD [Active, Cardiology]
Pradip Dior MD [Active, Neurology]
Benny Danielson MD [Active, Pulmonary Medicine] - in three to four weeks
Referral Note: May see [employer] [employer]ER --> sleep
Alejandro Smith MD [Active, Hematology / Oncology] - in two to three weeks
Referral Note: Consideration for ARTHUR for anemia
UNKNOWN - PT DOES,NOT KNOW [Family Provider]
Estephania Avina, DO [Active, Gastroenterology] - in four to six weeks
Referral Note: elevated liver function tests
Additional Discharge Medication Instructions: Continue Aspirin 81 mg daily for one year post patient's CABG surgery, then stop (as long as continues on eliquis)
Avoiding SGLT2-I type of medication for now given presentation with hypoglycemia
Avoiding Aldactone type of medication for now due to hyperkalemia on presentation
No statin needed at this time
Prescriptions:
New
acetaminophen 325 mg Tablet
650 mg PO Q4HPRN PRN (Reason: Mild Pain / Temp > 101) Qty: 90 0RF
metoprolol succinate 50 mg Tablet Extended Release 24 Hr
50 mg PO BID Qty: 60 0RF
furosemide 80 mg Tablet
80 mg PO BID Qty: 60 0RF
duloxetine 20 mg Capsule,Delayed Release(Dr/Ec)
20 mg PO DAILY Qty: 30 0RF
Eliquis 5 mg Tablet
5 mg PO BID Qty: 60 0RF
aspirin 81 mg Tablet,Chewable
81 mg PO DAILY Qty: 30 1RF
Continued
lidocaine [Lidocaine Pain Relief] 4 % Adhesive Patch,Medicated
1 patch TOPICAL DAILY PRN (Reason: pain)
Rx Instructions:
apply to L side lower back for pain
tamsulosin 0.4 mg Capsule
0.4 mg PO DAILY
pantoprazole 40 mg Tablet,Delayed Release (Dr/Ec)
40 mg PO DAILY
insulin glargine 100 unit/mL (3 mL) Insulin Pen
12 unit SC DAILY
Rx Instructions:
With breakfast
Discontinued
trazodone 50 mg Tablet
50 mg PO HS
gabapentin 100 mg Capsule
100 mg PO BID
metoprolol tartrate 37.5 mg Tablet
37.5 mg PO BID
Discharge Orders:
Discharge Patient (As Directed); Ordered 01/02/25
Ordered By: Leobardo Dodge
Discharge Date and Time
Discharge Date/Time: 01/02/25 16:12
Print Language: OCCITAN

Documented by User: Leobardo Dodge MD 01/03/25 17:10
Discharge Summary
Discharge Data
Date of Admission: 12/20/24
Date of Discharge: 01/03/25
Discharge Plan
-
Patient Disposition: Longterm/SNF
Discharge Diagnosis/Procedures: Acute on chronic hypercarbic respiratory failure on BiPAP
Medical noncompliance
CHRIS (not on CPAP, non-compliant)
Suspected Obesity Hypoventilation Syndrome
High risk for readmission and complications with obesity hypoventilation syndrome/right hemidiaphragm elevation/paralysis on CAT scan 12/31/2024
Waxing/waning mental status
Restrictive lung disease due to obesity
Anemia
GARY
Hyperglycemia
Diabetes Mellitus
Moderate Elevation of the Right Hemidiaphragm
Pulmonary Edema
Small Bilateral Pleural Effusions
Hypertension
Obesity
ASCVD
TIA / CVA
Carotid Stenosis
CHF
CABG x 3 (11/15/24 - [place], [place])
Bilateral BOOM
Carotid Stent
Non-sustained ventricular tachycardia

Abdominal Ultrasound (as per radiologist's report):
'Findings:
Incomplete exam due to patient condition/not cooperating. Only the gallbladder and liver were imaged.
Liver is unremarkable in echotexture without evidence of focal lesion. The portal and hepatic vessels appear grossly patent. Perihepatic ascites is present.
Probable gallbladder sludge present. Mild diffuse gallbladder wall thickening measuring up to 4 mm. No discrete gallstones, pericholecystic fluid or sonographic Gomes's sign.
IMPRESSION:
1. Incomplete exam.
2. Probable gallbladder sludge without overt sonographic evidence for acute cholecystitis.'

MRI Brain (as per radiologist's report):
'FINDINGS:
There are 3.5 mm acute ischemic infarcts in the periventricular white matter of the left frontal lobe pruett radiata and in the subcortical white matter of the right parietal lobe pruett radiata (image #152, series #302) demonstrating restricted
diffusion and mild cytotoxic edema. There is a mild amount of low T1 and high T2/FLAIR signal intensity white matter leukoaraiosis in the periventricular white matter of both cerebral hemispheres. The right intracranial vertebral artery appears
tortuous ostium midline and causing mild compression on the right side of the medulla.
There is mild diffuse cerebral and cerebellar volume loss with associated mild ex vacuo dilatation of the ventricular system. There is no midline shift or herniation.
There are 2 tiny 3 mm foci of low T2 gradient echo/low susceptibility signal in the right cerebellar hemisphere and a tiny 3 mm focus of low T2 gradient echo, low susceptibility signal in the anterior medial left frontal lobe consistent with tiny
foci of hemosiderin deposition from chronic intraparenchymal hemorrhages.
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 There is mild mucosal thickening throughout the ethmoid air cells and in the right maxillary sinus. There is mild mucosal thickening in the middle and inferior nasal turbinates. There is moderate
fluid in the left mastoid air cells and a small to moderate amount of fluid in the right mastoid air cells. The orbits appear normal.
IMPRESSION:
1. Small 3.5 mm ACUTE ISCHEMIC WHITE MATTER INFARCTS in the periventricular left frontal lobe pruett radiata and in the subcortical right parietal lobe pruett radiata.
2. Mild periventricular white matter leukoaraiosis in the frontal and parietal lobes.
3. Tiny chronic intraparenchymal microhemorrhages in the left frontal lobe and right cerebellar hemisphere.
4. Mild diffuse cerebral and cerebellar volume loss.
5. Mild to moderate fluid in the mastoid air cells.'

Carotid Ultrasound (as per vascular surgeon's report):
'IMPRESSION: Somewhat limited study secondary to patient movement and depth of vessels. However, no right internal carotid artery plaque or stenosis is noted. Left carotid stent is patent with no obvious in-stent restenosis. Antegrade flow bilateral
vertebral arteries.'

CT Chest without IV Contrast (as per radiologist's report):
'FINDINGS:
Opacification of the lower right hemithorax on recent chest radiographs predominantly as a result of marked elevation of the right hemidiaphragm. There is some right lower lobe opacification most likely predominantly representing some atelectasis
with some air bronchograms and small tiny pleural effusion which extends into the right major fissure (small pseudotumor). Evaluation for central mass or hilar adenopathy is markedly limited without intravenous contrast. The included left lung
contains some mild subsegmental atelectasis and/or scarring.
Coronary artery calcifications are noted. The heart is likely mildly enlarged. Cannot exclude small anterior pericardial effusion. There is no gross significant mediastinal or bilateral axillary lymphadenopathy.
Degenerative changes are seen within the thoracic spine. Sternal wires are noted.
Within the small portion of included upper abdomen, there is small volume right sided abdominal ascites. Faint high attenuation density is seen within the gallbladder which could represent sludge.
IMPRESSION: Majority of opacification of the lower right hemithorax as a result of marked elevation of the right hemidiaphragm.
Some accompanying mild right lower lobe opacity most likely representing subsegmental atelectasis or less likely pneumonia with small/tiny right pleural effusion extending into the fissure (pseudotumor). Unfortunately, especially without intravenous
contrast, mass in the lower medial right hemithorax cannot be excluded.
Small volume free fluid in the right abdomen.
Faint high attenuation density within the gallbladder most likely representing sludge.'
Diet: Low Cholesterol
Blood Work: BMP in 1 week
Activity Restrictions/Additional Instructions:
Follow-up the following labs (ordered in hospital, but still pending): erythropoietin, SPEP, FLC
Patient MUST be continued on BiPAP/Noninvasive [facility] ventilation [facility] (this was arranged in the hospital)
Continue low rate supplemental oxygen to maintain pulse ox above 90%
Continue Incentive Spirometer. Activity as tolerated
Patient will need radiographic follow-up in the outpatient setting-repeat CAT scan in the next 4 to 6 weeks to document improvement/resolution. Cannot completely rule out a mass.
Wound Care Instructions
L medial distal lower leg : clean with soap and water, dry dressing change after showering daily and prn drainage.
moisturize legs daily after showering
Follow up with surgeon
BiPAP 15/5 nightly
Follow up with your primary care provider regarding your serum protein electrophoresis, serum free light chains, and erythropoietin levels that were pending at discharge.
If you have persistent anemia with Hgb <10 despite ferritin >100, IS <20 in follow up with your primary care provider then your primary care provider should refer to hematology OP to consider erythropoietin injections
Referrals:
Dwain Martinez MD [Active, Cardiology]
Pradip Dior MD [Active, Neurology]
Benny Danielson MD [Active, Pulmonary Medicine] - in three to four weeks
Referral Note: May see [employer] [employer]ANER --> sleep
Alejandro Smith MD [Active, Hematology / Oncology] - in two to three weeks
Referral Note: Consideration for ARTHUR for anemia
UNKNOWN - PT DOES,NOT KNOW [Family Provider]
Estephania Avina DO [Active, Gastroenterology] - in four to six weeks
Referral Note: elevated liver function tests
Additional Discharge Medication Instructions: Continue Aspirin 81 mg daily for one year post patient's CABG surgery, then stop (as long as continues on eliquis)
Avoiding SGLT2-I type of medication for now given presentation with hypoglycemia
Avoiding Aldactone type of medication for now due to hyperkalemia on presentation
No statin needed at this time
Prescriptions:
New
acetaminophen 325 mg Tablet
650 mg PO Q4HPRN PRN (Reason: Mild Pain / Temp > 101) Qty: 90 0RF
metoprolol succinate 50 mg Tablet Extended Release 24 Hr
50 mg PO BID Qty: 60 0RF
furosemide 80 mg Tablet
80 mg PO BID Qty: 60 0RF
duloxetine 20 mg Capsule,Delayed Release(Dr/Ec)
20 mg PO DAILY Qty: 30 0RF
Eliquis 5 mg Tablet
5 mg PO BID Qty: 60 0RF
aspirin 81 mg Tablet,Chewable
81 mg PO DAILY Qty: 30 1RF
Continued
lidocaine [Lidocaine Pain Relief] 4 % Adhesive Patch,Medicated
1 patch TOPICAL DAILY PRN (Reason: pain)
Rx Instructions:
apply to L side lower back for pain
tamsulosin 0.4 mg Capsule
0.4 mg PO DAILY
pantoprazole 40 mg Tablet,Delayed Release (Dr/Ec)
40 mg PO DAILY
insulin glargine 100 unit/mL (3 mL) Insulin Pen
12 unit SC DAILY
Rx Instructions:
With breakfast
Discontinued
trazodone 50 mg Tablet
50 mg PO HS
gabapentin 100 mg Capsule
100 mg PO BID
metoprolol tartrate 37.5 mg Tablet
37.5 mg PO BID
Discharge Orders:
Discharge Patient (As Directed); Ordered 01/02/25
Ordered By: Leobardo Dodge
Discharge Date and Time
Discharge Date/Time: 01/02/25 16:12
Print Language: OCCITAN
[2025-01-01 13:07] LABS: Glucose - Point of Care 225 mg/dl (70-99)
[2025-01-01] MEDS: NOVOLOG FLEXPEN-LOW RESISTANCE 2 UNITS SC (13:08)
--- NOTE | 2025-01-01 13:14 | W.PN.PUL3 ---
Today's Communication / Plan
-
Continue nocturnal BiPAP while in hospital or rehab.
Noninvasive mechanical ventilation arranged
Low rate supplemental oxygen
Diuresis
Avoid sedatives
Weight loss recommended
Outpatient pulmonary follow-up
Sign off
Assessment
-
Patient is a 64-year-old male with previous history of diabetes, obesity, CHRIS not on CPAP, CAD complaining of shortness of breath and weight gain. Patient was notably somnolent on arrival, he is noted by family to be sleepy and lethargic most days.
He had recently undergone CABG at a hospital in [place] on 11/15/2024. Since then he apparently gained 10 pounds and had become more short of breath with activity. ABG completed on admission demonstrating acute on chronic hypercarbia. He has a
history of CHRIS but is noncompliant with CPAP. He has had with waxing and waning mental status since admission 12/20/2024. He has been intermittently refusing PAP as well. We are consulted for hypercarbia management.
Acute on chronic hypercarbic respiratory failure on BiPAP
Medical noncompliance
Waxing/waning mental status
Restrictive lung disease due to obesity
Anemia
GARY
Hyperglycemia
Conditions present prior to admission
Obesity
CHRIS not on CPAP, noncompliant
Diabetes
Hypertension
ASCVD
TIA / CVA
Carotid Stenosis
CHF
CABG x 3 (11/15/24 - [place], [place])
Bilateral BOOM
Carotid Stent
Plan
-
No new overnight pulmonary events.
Remains on low rate supplemental oxygen.
-
Discussion with the brother at the bedside with Dr. Martinez 12/30/2024: I am recommending noninvasive mechanical ventilation prior to discharge given high risk for readmission and complications with obesity hypoventilation syndrome/right hemidiaphragm
elevation/paralysis on CAT scan 12/31/2024.
-
Chronic hypercapnic respiratory failure:
Prior history of lung disease is noted including CHRIS with suspected OHS-likely restrictive lung disease from obesity.
Right hemidiaphragm elevation on CAT scan 12/31/2024: Right subsegmental atelectasis. Pleural effusion with loculated fluid on the minor fissure.
-
He has medical noncompliance to CPAP therapy, was told as an outpatient to undergo sleep study but refused
Compliance with BiPAP encouraged while in the hospital- Now she is willing to get ventilator prior to discharge. She is committed to follow-up.
Most recent VBG appears compensated.
Noninvasive mechanical ventilation will be arranged for home. Forms been filled out. Discussed with case therapist.
-
Not requiring oxygen supplementation at rest per physical therapy notes.
On 12/29/2024 required up to 3 L with ambulation.
Continue low rate supplemental oxygen to maintain pulse ox above 90%.
-
Status post diuresis per cardiology. Clinically improved.
CXR: 12/23/2024:-pulmonary edema
Component of heart failure, proBNP 3960 on admission
Prior ECHO results are reviewed indicating normal function, mild to moderate valvular heart disease
Cardiology following the patient, renal function being followed as well.
-
Abnormal chest x-ray:
Chest x-ray this morning 12/31/2024: Demonstrated improved pulmonary edema pattern.
Opacity on the right side did not clear.
CT chest 12/31/2024: Reviewed by me showed significant right hemidiaphragm elevation/paralysis. Compressive atelectasis. Small pleural effusion with loculation in the minor fissure. Did not appreciate any mass.
Doubt infiltrate is related to infection as the patient is not behaving as such.(Will wait for official report)
Increase activity
Weight loss
Incentive spirometer
Continue diuresis
Patient will need radiographic follow-up in the outpatient setting-repeat CAT scan in the next 4 to 6 weeks to document improvement/resolution. Cannot completely rule out a mass.
-
Certainly right hemidiaphragm paralysis/dysfunction contributing to shortness of breath/hypoxemia and chronic hypercapnia.
Continue BiPAP as above.
Weight loss measures recommended
Obesity likely contributing to respiratory symptoms
Physical therapy/Occupational Therapy now the patient is more awake. Continue as tolerated.
Will need outpatient pulmonary evaluation in our office for PFTs and 6MWT
Risk factors assessed for underlying sleep disordered breathing also noted, recommend outpatient PSG/sleep evaluation-hopefully patient will follow-up.
-
Okay to discharge from the pulmonary perspective.
Sign off.
Information regarding follow-up has been left in the chart.
Diagnostic Data
Chest X-Ray: 12/23/24-Findings suggesting pulmonary edema with cardiomegaly.
12/20/24-Moderate elevation of the right hemidiaphragm. Findings suggesting interstitial pulmonary edema pattern with small bilateral pleural effusions.
CT Scan:
Echo: 12/21/24- 1. Normal left ventricular size and systolic function. Ejection fraction is 60-65%.
2. Moderate mitral regurgitation.
3. Mild/moderate tricuspid regurgitation. Estimated pulmonary artery pressure of 39 mmHg assuming a right atrial pressure of 8 mmHg. Mildly elevated PASP.
4. No prior study available for comparison.
PFT's:
Reports and relevant images were personally reviewed.
Subjective Data
-
Date of Service:
Date of Service: January 01, 2025
Chief Complaint: Pulmonary Follow Up (Chronic hypercapnic respiratory failure/hypoxemic respiratory failure)
Subjective:
No new pulmonary complaints
Tolerating nocturnal BiPAP
Review of Systems
Cardiopulmonary: Dyspnea (None at rest)
Objective Data
Data Reviewed
Vital Signs / I&O / Oxygen:
Vital Signs
Temp Pulse Resp BP Pulse Ox
97.8 F 73 20 154/64 98
01/01/25 07:25 01/01/25 08:42 01/01/25 07:25 01/01/25 08:42 01/01/25 08:50
Intake and Output
12/31/24 01/01/25 01/02/25
06:59 06:59 06:59
Intake Total 1480 / 1480 780 / 780
Output Total 2725 / 2725 3390 / 3390
Balance -1245 / -1245 -2610 / -2610
SaO2 98
Nasal Cannula flow liters per 2
minute
Physical Exam
General: Comfortable and Other (NAD)
HEENT: Normocephalic, Anicteric and Moist Mucous Membranes
Cardiovascular: S1-S2 and Regular Rhythm
Respiratory: Clear and Non-Labored Respirations
GI: Soft, Non Distended and Non Tender
Neurology: Awake, Alert, Oriented and No Motor Deficits
Skin: Warm and Dry
Labs/Micro/Reports
Lab Data
12/31/24 08:43
01/01/25 08:07
--- NOTE | 2025-01-01 14:23 | W.PN.ONC2 ---
Today's Communication / Plan
-
no further IP hematology recommendations, hematology will sign off. If pt has persistent anemia with Hgb <10 despite ferritin >100, IS <20 then would refer to hematology OP to consider ARTHUR
Impression
Impression
normocytic anemia - chronicity unknown
renal insufficency - chronicity unknown
CVA started on DOAC Dec 2024
CABG October 2024 on ASA
valvular heart disease
CHRIS
Plan
Plan
normocytic anemia has remained stable throughout hospitalization
no substrate deficiency. normal retic, normal LDH, and LFT pattern does not suggest hemolysis.
heme stool pending
f/u erythropoietin, SPEP, FLC
ESR, CRP suggest component of inflammation contributing to anemia
He may have anemia secondary to renal insufficiency. if this is the case, he would be eligible for OP ARTHUR for AOCKD if Hgb remains <10g/dL.
Subjective/Objective
Subjective
no new complaints
eager for discharge
Vital Signs:
Vital Signs
Temp Pulse Resp BP Pulse Ox
97.8 F 73 20 154/64 98
01/01/25 07:25 01/01/25 08:42 01/01/25 07:25 01/01/25 08:42 01/01/25 08:50
Lab Results:
Laboratory Data
WBC 10.1 10^3/uL (4.8-10.8) 12/31/24 08:43
Hgb 9.2 g/dL (13.0-18.0) L 12/31/24 08:43
Plt Count 247 10^3/uL (130-400) 12/31/24 08:43
eGFR 44.74 01/01/25 08:07
Physical Exam
HEENT: Moist Mucous Membranes; No Jaundice
Pulmonary: Other (unlabored)
GI: Soft
Extremities: Pulses Present
Orders
Orders
Orders From Last 24 Hours
01/01/25 08:07
Erythropoietin (EPO) [S] IN AM
[2025-01-01 15:15] VITALS: BP 167/81
[2025-01-01 16:49] LABS: Glucose - Point of Care 170 mg/dl (70-99)
[2025-01-01] MEDS: NOVOLOG FLEXPEN-LOW RESISTANCE 1 UNITS SC (17:49)
[2025-01-01 19:45] VITALS: BP 166/74
[2025-01-01] MEDS: REMOVE LIDOCAINE PATCH 1 PATCH REMOVE (19:58)
[2025-01-01 21:45] LABS: Glucose - Point of Care 176 mg/dl (70-99)
[2025-01-01 23:24] VITALS: BP 139/63
[2025-01-02 06:00] VITALS: BMI 33.0
--- NOTE | 2025-01-02 07:37 | W.PN.HOSP.TC ---
Today's Communication/Plan
-
Discharge today
Assessment / Plan
Assessment / Plan
Physical Exam
General: No Apparent Distress
Neuro: Awake, Alert, Oriented and AO x 3
Psych: Calm
Assessment/Plan
64yo M with PMHx of DM, obesity, L carotid stent, CAD s/p CABG on 11/15/24 brought in by his brother with somnolence, weight gain and SOB, managed for CHF exacerbation and hypercapnia and AMS 2/2 hypercapnia and cannot exclude hypoglycemic
encephalopathy. Became AAOx3 without any signs of lethargy after starting to be compliant with nighttime BiPAP, however remain non-compliant. Also found acute stroke most likely 2/2 paroxysmal Afib, so started on Eliquis
As per brother - patient had 5 days a week job in [place] before his CABG in October, after the surgery he had decline with worsening cognition and lethargy most likely 2/2 non-compliance with CPAP. He was recommended CPAP years ago, but did not use it
and usually spent all his weekend sleeping.
For elevated liver tests seen since admission: outpatient w/u with GI recommended, as no acute findings on US while inpatient
Hematology evaluated and started workup. Will need outpatient referral
#Acute hypoxic hypercarbic respiratory failure 2/2 diastolic CHF exacerbation and CHRIS
Echo: EF 65%, moderate MR, mild/moderate TR
LAsix, daily weight, follow Cr and electrolytes
Cardio follows: cont diuresis
Pulm consult: for
BiPAP
#Dense opacification of the lower half of the right chest
CT chest as per pulm
#Acute metabolic encephalopathy
2/2 hypercarbia and hypoglycemia
Head CT: without acute findings
Neuro consult: stop Neurontin, MRI - found stroke
#Acute ischemic stroke
#Hx of CVA in 2023
#Carotid stenosis s/o L carotid stent
3.5 mm ACUTE ISCHEMIC WHITE [employer]TER INFARCTS in the periventricular left frontal lobe pruett radiata and in the subcortical right parietal lobe pruett radiata
Telemetry showed paroxysmal Afib
US carotid: no clinically significant stenosis on R, L stent patient
Neuro consult
statin, Eliquis
TSH WNL
HgbA1c 6.8%
LDL 40
Neurochecks
#NSVT
#paroxysmal Afib
BB
telemetry
cardio: start Eliquis
#Anemia of chronic disease
check FOBT - RN notified
follow CBC
LDH WNL - no concern for hemolysis
with normocytic anemia- hematology consult: might have anemia 2/2 CKD- Epo pending, will need outpatient follow up
ESR/CRP elevated, SPEP and FLC sent
#DM type 2 with hypoglycemia at home
No plan for SGLT-2 inh in view of hypoglycemia
AccuCheck, Insulin SS, and DM diet
#Elevated Cr, GARY on admission on CKD (unknown)
unclear baseline
follow Cr
#Hyperkalemia
most likely 2/2 hypercarbia
Avoid Aldactone, ACEi/ARB
#Aspiration pneumonia
Completed unasyn
#ALk phos elevation on admission
#Elevated ALT
follow LFT
US RUQ incomplete, but no signs of cholecystitis
GGT elevated - outpatient w/u with GI recommended
#obesity
BMI 37.5
decrease calorie intake
DVT ppx Eliquis
Full code
More than 30 minutes spent in discharge including
Final examination of the patient
Summarizing hospital stay
Instructions for continuing care to all relevant caregivers
Preparation of discharge records, prescriptions, and referral forms
Total time spent (in minutes): 38
Anticipated Discharge: Today
Subjective/Interval History
-
Date of Service: January 02, 2025
Patient was seen and examined. He denied any new symptoms or complaints.
Objective Data
-
Labs:
Laboratory Results
01/02/25
06:00
Sodium Pending
Potassium Pending
Chloride Pending
Carbon Dioxide Pending
BUN Pending
Creatinine Pending
Glucose Pending
Calcium Pending
Vital Signs:
Vital Signs
Temp Pulse Resp BP Pulse Ox
98.2 F 75 16 139/63 96
01/01/25 23:24 01/01/25 23:24 01/01/25 23:24 01/01/25 23:24 01/01/25 23:24
I&O
01/01/25 01/02/25 01/03/25
06:59 06:59 06:59
Intake Total 780 / 780 1560 / 1560
Output Total 3390 / 3390 2700 / 2700
Balance -2610 / -2610 -1140 / -1140
[2025-01-02 07:39] LABS: Glucose - Point of Care 131 mg/dl (70-99)
[2025-01-02 07:45] VITALS: BP 147/64
[2025-01-02] MEDS: NOVOLOG FLEXPEN-LOW RESISTANCE SC (07:46)
[2025-01-02] MEDS: ELIQUIS 5 MG PO (08:08)
[2025-01-02] MEDS: LOW STRENGTH ASPIRIN 81 MG PO (08:08)
[2025-01-02] MEDS: CYMBALTA DELAYED RELEASE 20 MG PO (08:08)
[2025-01-02] MEDS: TOPROL XL 50 MG PO (08:08)
[2025-01-02] MEDS: FLOMAX 0.4 MG PO (08:08)
[2025-01-02] MEDS: DICLOFENAC 1% TOPICAL GEL 100 GRAM TOPICAL ×2 (08:08→13:02)
[2025-01-02] MEDS: PROTONIX 40 MG PO (08:08)
[2025-01-02] MEDS: LASIX 80 MG PO (08:08)
[2025-01-02] MEDS: LIDOCAINE 4% PATCH 1 PATCH TOPICAL (08:35)
[2025-01-02 09:00] LABS: Blood Urea Nitrogen 35 mg/dl (9-20); Calcium 9.0 mg/dl (8.4-10.2); Carbon Dioxide 38 mmol/L (22-30); Chloride 95 mmol/L (98-107); Estimated Creatinine Clearance 50 ml/min; Glucose 124 mg/dl (70-99); Potassium 4.7 mmol/L (3.5-5.1); Sodium 137 mmol/L (135-145); eGFR 48.11
[2025-01-02 11:30] LABS: Glucose - Point of Care 233 mg/dl (70-99)
[2025-01-02] MEDS: NOVOLOG FLEXPEN-LOW RESISTANCE 2 UNITS SC (12:03)
--- NOTE | 2025-01-02 12:14 | CM ---
discharge confirmed. Transport papers filled out. poly area supervisor at 1530 today. [facility] liaison notified . 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 CM gave [facility] name and phone of nurse for patient.
[2025-01-02 14:58] VITALS: BP 126/76
[2025-01-05 07:36] LABS: Albumin 3.26 g/dL (3.75-5.01); SPEP IFE Reflex Not Done; Total Protein-Electrophoresis 6.2 g/dL (6.3-8.2)
== END 2025-01-02 16:12 | DRG 291 ==
LOC: 4 WEST ACU 23:27
PROVIDERS: Internal Medicine; Nurse Practitioner; Nurse Practitioner Acute Care; Nurse Practitioner Family; Registered Nurse; ADMITTING PHYSICIAN Hospitalist; ATTENDING PHYSICIAN Hospitalist; CONSULT PHYSICIAN Internal Medicine; CONSULT PHYSICIAN Physical Medicine & Rehabilitation; CONSULT PHYSICIAN Psychiatry & Neurology Neurology; EMERGENCY PHYSICIAN Student in an Organized Health Care Education/Training Program; OTHER PHYSICIAN Internal Medicine Cardiovascular Disease; OTHER PHYSICIAN Internal Medicine Hematology & Oncology
PROC: 5A09357 Assistance with Respiratory Ventilation, Less than 24 Consecutive Hours, Continuous Positive Airway Pressure (ICD-10-PCS; 2024-12-21)
DX: I13.0 Hypertensive heart and chronic kidney disease with heart failure and stage 1 through stage 4 chronic kidney disease, or unspecified chronic kidney disease (principal); G93.41 Metabolic encephalopathy; I50.33 Acute on chronic diastolic (congestive) heart failure; J96.21 Acute and chronic respiratory failure with hypoxia; J96.22 Acute and chronic respiratory failure with hypercapnia; J69.0 Pneumonitis due to inhalation of food and vomit; I63.9 Cerebral infarction, unspecified; G93.6 Cerebral edema; N17.9 Acute kidney failure, unspecified; E66.2 Morbid (severe) obesity with alveolar hypoventilation; I47.29 Other ventricular tachycardia; R18.8 Other ascites; E87.20 Acidosis, unspecified; N18.9 Chronic kidney disease, unspecified; I25.10 Atherosclerotic heart disease of native coronary artery without angina pectoris; I48.0 Paroxysmal atrial fibrillation; E87.5 Hyperkalemia; I07.1 Rheumatic tricuspid insufficiency; G89.29 Other chronic pain; J98.4 Other disorders of lung; E11.65 Type 2 diabetes mellitus with hyperglycemia; M54.9 Dorsalgia, unspecified; K82.8 Other specified diseases of gallbladder; E78.5 Hyperlipidemia, unspecified; D63.1 Anemia in chronic kidney disease; E11.649 Type 2 diabetes mellitus with hypoglycemia without coma; E11.22 Type 2 diabetes mellitus with diabetic chronic kidney disease; Z82.49 Family history of ischemic heart disease and other diseases of the circulatory system; Z95.1 Presence of aortocoronary bypass graft; Z86.73 Personal history of transient ischemic attack (TIA), and cerebral infarction without residual deficits; Z79.82 Long term (current) use of aspirin; Z91.199 Patient's noncompliance with other medical treatment and regimen due to unspecified reason; Z79.4 Long term (current) use of insulin; Z68.37 Body mass index [BMI] 37.0-37.9, adult
CPT/HCPCS: 36600; 70450; 70551; 71045; 71046; 71250; 76604; 76700; 80048; 80053; 80061; 81003; 81015; 82248; 82533; 82607; 82668; 82728; 82746; 82805; 82962; 82977; 83036; 83540; 83550; 83615; 83735; 83880; 84100; 84132; 84155; 84165; 84300; 84443; 84484; 85014; 85018; 85025; 85027; 85045; 85576; 85652; 86140; 86704; 86706; 86803; 87015; 87040; 87207; 92523; 92526; 92610; 93005; 93306; 93307; 93880; 93970; 94660; 95816; 97116; 97163; 97164; 97167; 97530; 97535; 99291; J1610

== ENCOUNTER 2025-01-08 19:51 | Emergency (ER) | payer BC, SELFPAY ==
[2025-01-08] VITALS (9 sets, daily range): BP systolic 90–153; BP diastolic 55–77; BMI 33.2; BMI 33.9
[2025-01-08 20:31] LABS: Hematocrit 31.8 % (39.0-52.0); Hemoglobin 9.9 g/dL (13.0-18.0); Mean Corp Hgb Conc. 31.1 g/dL (33.0-37.0); Mean Corpuscular Volume 79.5 fL (80.0-94.0); Nucleated Red Blood Cells % 0 % (-); Platelet Count 278 10^3/uL (130-400); Red Cell Dist. Width 19.8 % (11.5-14.5)
[2025-01-08 20:43] LABS: ALT (SGPT) 50 U/L (0-50); AST (SGOT) 34 U/L (17-59); Albumin 3.9 g/dl (3.5-5.0); Alkaline Phosphatase 161 U/L (38-126); Blood Urea Nitrogen 50 mg/dl (9-20); Calcium 8.9 mg/dl (8.4-10.2); Carbon Dioxide 31 mmol/L (22-30); Chloride 99 mmol/L (98-107); Estimated Creatinine Clearance 35 ml/min; Glucose 228 mg/dl (70-99); Potassium 5.6 mmol/L (3.5-5.1); Sodium 135 mmol/L (135-145); Total Protein 6.7 g/dl (6.3-8.2); eGFR 34.72
[2025-01-08 20:50] LABS: Troponin I 0.019 ng/ml
--- NOTE | 2025-01-08 21:02 | ED.GENMED ---
History of Present Illness
<Armida Olivo PA-C - Last Filed: 01/08/25 23:04>
General
Chief Complaint: Chest Pain
Source: patient, care home records and previous hospital records
Exam Limitations: none
Time Seen by Provider: 01/08/25 19:58
History of Present Illness
History of Present Illness:
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
hypertension, hyperlipidemia, diabetes, CAD, carotid stenosis with stenting, who presents to the emergency department from his cardiac rehab facility for evaluation of burning in the left arm and left-sided chest pain. Patient reports that just
prior to arrival he started to notice a burning sensation in his entire left arm. He reports it was followed by left side chest discomfort. He reports that he called for the nurse who came and gave him a dose of nitroglycerin. He reports that it
did not seem to alleviate the pain therefore 911 was called. Patient reports that en route to the emergency department he was given another dose of nitroglycerin as well as 324 of aspirin to chew. He reports that his symptoms are improved but not
completely resolved now. Patient denies any associated shortness of breath, nausea, vomiting, diaphoresis. Patient denies any recent lower extremity edema. Patient denies any fevers, chills, cough.
Past History
<Armida Olivo PA-C - Last Filed: 01/08/25 23:04>
Past History
ED Past Medical History: CAD, HTN, NIDDM and Other
ED Past Surgical History: Cardiac
Family History
Family History: CAD
Review of Systems
<Armida Olivo PA-C - Last Filed: 01/08/25 23:04>
Review of Systems
Allergies reviewed?: Yes
All Other Systems: ROS reviewed and negative except as documented in HPI and ROS
Constitutional: Reports no symptoms
EENT: Reports no symptoms
Respiratory: Reports no symptoms
Cardiac: Reports chest pain
ABD/GI: Reports no symptoms
: Reports no symptoms
Musculoskeletal: Reports other (burning sensation of the left arm)
Skin: Reports no symptoms
Neurological: Reports no symptoms
Endocrine: Reports no symptoms
Hematologic/Lymphatic: Reports no symptoms
Psychiatric: Reports no symptoms
Phy Exam
<Armida Olivo PA-C - Last Filed: 01/08/25 23:04>
General Physical Exam
General Presentation: well appearing and no apparent distress
General Skin: warm and dry
General Habitus: normal
General Mental: alert
General Hydration: appears well hydrated
ENT Exam
ENT Exam: EOMI, pharynx normal, neck supple and normocephalic
Eye Exam
Eye Exam: PERRL, cornea clear and conjunctiva normal
Cardiovascular Exam
Cardiovascular Exam: regular rate/rhythm, no edema, no murmur and normal peripheral pulses
Pulmonary Exam
Pulmonary Exam: lungs clear, no respiratory distress, no rales, no crackles, no rhonchi, no stridor, no wheezing and no cough
Gastrointestinal Exam
Gastrointestinal Exam: normal bowel sounds, non tender, soft, no organomegaly, no pulsatile mass and non distended
Neurological Exam
Neurological Exam: alert, oriented x3, no motor deficits and speech normal
Musculoskeletal Exam
Musculoskeletal Exam: full ROM and no edema
Skin Exam
Skin Exam: normal color, warm/dry, no rash and no petechia
Psychiatric Exam
Psychiatric Exam: normal mood/affect
Scores
<Pamela Grigsby NP - Last Filed: 01/09/25 00:20>
Heart Score for Chest Pain Patients
STEMI patient?: No
History: Slightly or Non-Suspicious
ECG: Normal
Age: >45 - <65 years
Risk Factors: >/= 3 Risk Factors or History of CAD
Troponin: </= Normal Limit
Heart Score for Chest Pain Patients: 3
Heart Score Risk: 2.5% MACE over next 6 weeks
Course
<Armida Olivo PA-C - Last Filed: 01/08/25 23:04>
Orders/Labs/Results
Orders:
Orders
01/08/25 19:57
Electrocardiogram (*1) Urgent
Reason for Study: Chest Pain
Cardiac Monitoring- Treatment ONCE
EKG- Treatment ONCE
IV Insert/Care/Rem.- Treatment PRN
Pulse Ox/spot Check [RESP] Urgent
Quantity: 1
Special Instructions: ON ROOM AIR
01/08/25 20:14
Complete Blood Count/With Diff Urgent
Comprehensive Metabolic Panel Urgent
Troponin I Urgent
01/08/25 21:00
CR Chest - 2 Views Urgent
Comment:
Reason For Exam: chest pain
01/08/25 21:51
0.9% Sodium Chloride 500 ml [Nss] 500 ml IV BOLUS
01/08/25 23:06
Basic Metabolic Panel Urgent
Troponin I Urgent
Abnormal Lab Results
01/08/25 01/08/25
20:14 23:06
RBC 4.00 L 10^6/uL
(4.70-6.10)
Hgb 9.9 L g/dL
(13.0-18.0)
Hct 31.8 L %
(39.0-52.0)
MCV 79.5 L fL
(80.0-94.0)
MCH 24.8 L pg
(27.0-31.0)
MCHC 31.1 L g/dL
(33.0-37.0)
RDW 19.8 H %
(11.5-14.5)
MPV 10.8 H fL
(7.4-10.4)
Absolute Monos (auto) 0.9 H 10^3/uL
(0.1-0.6)
Lymphocytes % 17.4 L %
(20.5-51.1)
Monocytes % 11.6 H %
(1.7-9.3)
Eosinophils % 6.6 H %
(0-6)
Potassium 5.6 H mmol/L
(3.5-5.1)
Carbon Dioxide 31 H mmol/L
(22-30)
BUN 50 H mg/dl 48 H mg/dl
(9-20) (9-20)
Creatinine 2.1 H mg/dL 2.1 H mg/dL
(0.7-1.3) (0.7-1.3)
Glucose 228 H mg/dl 229 H mg/dl
(70-99) (70-99)
Alkaline Phosphatase 161 H U/L
(38-126)
01/08/25 20:14
01/08/25 23:06
Vital Signs
Initial and Last Documented VS:
Initial Vital Signs
Temp Pulse Resp BP Pulse Ox
98.3 F 74 20 90/55 95
01/08/25 19:58 01/08/25 19:58 01/08/25 19:58 01/08/25 19:58 01/08/25 19:58
Last Documented Vital Signs
Temp Pulse Resp BP Pulse Ox
98.3 F 68 14 147/64 94
01/08/25 19:58 01/09/25 00:00 01/09/25 00:00 01/08/25 23:30 01/09/25 00:00
<Pamela Grigsby DRAFTER APPRENTICE - Last Filed: 01/09/25 00:20>
Orders/Labs/Results
Orders:
Orders
01/08/25 19:57
Electrocardiogram (*1) Urgent
Reason for Study: Chest Pain
Cardiac Monitoring- Treatment ONCE
EKG- Treatment ONCE
IV Insert/Care/Rem.- Treatment PRN
Pulse Ox/spot Check [RESP] Urgent
Quantity: 1
Special Instructions: ON ROOM AIR
01/08/25 20:14
Complete Blood Count/With Diff Urgent
Comprehensive Metabolic Panel Urgent
Troponin I Urgent
01/08/25 21:00
CR Chest - 2 Views Urgent
Comment:
Reason For Exam: chest pain
01/08/25 21:51
0.9% Sodium Chloride 500 ml [Nss] 500 ml IV BOLUS
01/08/25 23:06
Basic Metabolic Panel Urgent
Troponin I Urgent
Abnormal Lab Results
01/08/25 01/08/25
20:14 23:06
RBC 4.00 L 10^6/uL
(4.70-6.10)
Hgb 9.9 L g/dL
(13.0-18.0)
Hct 31.8 L %
(39.0-52.0)
MCV 79.5 L fL
(80.0-94.0)
MCH 24.8 L pg
(27.0-31.0)
MCHC 31.1 L g/dL
(33.0-37.0)
RDW 19.8 H %
(11.5-14.5)
MPV 10.8 H fL
(7.4-10.4)
Absolute Monos (auto) 0.9 H 10^3/uL
(0.1-0.6)
Lymphocytes % 17.4 L %
(20.5-51.1)
Monocytes % 11.6 H %
(1.7-9.3)
Eosinophils % 6.6 H %
(0-6)
Potassium 5.6 H mmol/L
(3.5-5.1)
Carbon Dioxide 31 H mmol/L
(22-30)
BUN 50 H mg/dl 48 H mg/dl
(9-20) (9-20)
Creatinine 2.1 H mg/dL 2.1 H mg/dL
(0.7-1.3) (0.7-1.3)
Glucose 228 H mg/dl 229 H mg/dl
(70-99) (70-99)
Alkaline Phosphatase 161 H U/L
(38-126)
01/08/25 20:14
01/08/25 23:06
Vital Signs
Initial and Last Documented VS:
Initial Vital Signs
Temp Pulse Resp BP Pulse Ox
98.3 F 74 20 90/55 95
01/08/25 19:58 01/08/25 19:58 01/08/25 19:58 01/08/25 19:58 01/08/25 19:58
Last Documented Vital Signs
Temp Pulse Resp BP Pulse Ox
98.3 F 68 14 147/64 94
01/08/25 19:58 01/09/25 00:00 01/09/25 00:00 01/08/25 23:30 01/09/25 00:00
<Armida Olivo PA-C - Last Filed: 01/08/25 23:04>
*Pulse Oximetry
SaO2: 93
Oxygen Mode of Delivery: Room air
*EKG
Interpreted by ED Provider?: Yes
EKG Intrepretation Date: 01/08/25
Interpretation: abnormal
Comparison EKG: no changes
Heart Rate: 71
Rate: normal
Rhythm: sinus
[place]: normal axis
Interval: normal interval
QRS Pattern: normal QRS
Ischemia: other (poor R wave progression)
<Pamela Grigsby NP - Last Filed: 01/09/25 00:20>
*Pulse Oximetry
Patient hypoxic: no
*Critical Care Note
Total Time (30-74mins, 75-104mins- exclusive of procedures): Not Applicable
<Armida Olivo PA-C - Last Filed: 01/08/25 23:04>
Update Note
Update Note:
64 yo male with extensive past medical history including CABG less than 2 months ago, who presents to the emergency department for evaluation of left sided arm 'burning' and left sided chest pain which is now improved. On arrival, patient is
slightly hypotensive to 90/55 but did just receive nitroglycerin, he is afebrile. On examination the patient is very well-appearing, he is in no acute distress, he has a normal cardiopulmonary exam and no focal neurological deficits. An EKG was
performed and demonstrates no acute ischemic changes, no evidence of dysrhythmia, it is unchanged from prior. Labs were obtained and are notable for a negative initial troponin however given the fact that symptoms started just prior to arrival,
patient will require a repeat troponin. Patient's blood work also notable for mildly elevated glucose, mildly elevated alk phos levels. Additionally the patient's potassium is elevated at 5.6 and his creatinine is mildly elevated at 2.1 in
comparison to his baseline which is closer to 1.7. Chest x-ray demonstrates no acute disease process. Case was discussed with ED attending. Suspect that the patient is dehydrated given his labs. Patient is on 80 mg of Lasix twice daily which may
be contributing. Will give 500 cc of normal saline, recheck a BMP. Will also check a 3-hour troponin. If BNP/potassium level is improved and second troponin is negative, anticipate the patient will be able to be discharged back to his facility
<Pamela Grigsby NP - Last Filed: 01/09/25 00:20>
Update Note
Update Note:
64 yo male with extensive past medical history including CABG less than 2 months ago, who presents to the emergency department for evaluation of left sided arm 'burning' and left sided chest pain which is now improved. On arrival, patient is
slightly hypotensive to 90/55 but did just receive nitroglycerin, he is afebrile. On examination the patient is very well-appearing, he is in no acute distress, he has a normal cardiopulmonary exam and no focal neurological deficits. An EKG was
performed and demonstrates no acute ischemic changes, no evidence of dysrhythmia, it is unchanged from prior. Labs were obtained and are notable for a negative initial troponin however given the fact that symptoms started just prior to arrival,
patient will require a repeat troponin. Patient's blood work also notable for mildly elevated glucose, mildly elevated alk phos levels. Additionally the patient's potassium is elevated at 5.6 and his creatinine is mildly elevated at 2.1 in
comparison to his baseline which is closer to 1.7. Chest x-ray demonstrates no acute disease process. Case was discussed with ED attending. Suspect that the patient is dehydrated given his labs. Patient is on 80 mg of Lasix twice daily which may
be contributing. Will give 500 cc of normal saline, recheck a BMP. Will also check a 3-hour troponin. If BNP/potassium level is improved and second troponin is negative, anticipate the patient will be able to be discharged back to his facility
2nd troponin remains neg at 0.020. Repeat K 4.6. Remains pain free WIll discharge back to rehab facility as planned. Discussed repeat lab results and discharge with him and he is agreeable to plan.
ED Attending Note
<Armida Olivo PA-C - Last Filed: 01/08/25 23:04>
-
Portions of this chart may have been created with voice recognition software.� Occasional wrong word or��sound alike� substitutions may have occurred due to the inherent limitations of voice recognition software.
Discharge Plan
Departure
Patient Disposition: Acute Rehab Facility
Date of Disposition: 01/09/25
Time of Disposition: 00:18
Patient with high blood pressure during this ER visit?: No
Condition: Good
Covid-19: Not Applicable
Discharge Problem:
Chest pain
Instructions: Chest Pain NON-DHP Book Trimmer Follow Up
Prescriptions:
No Action
lidocaine [Lidocaine Pain Relief] 4 % Adhesive Patch,Medicated
1 patch TOPICAL DAILY PRN (Reason: pain)
Rx Instructions:
apply to L side lower back for pain
tamsulosin 0.4 mg Capsule
0.4 mg PO DAILY
pantoprazole 40 mg Tablet,Delayed Release (Dr/Ec)
40 mg PO DAILY
insulin glargine 100 unit/mL (3 mL) Insulin Pen
12 unit SC DAILY
Rx Instructions:
With breakfast
acetaminophen 325 mg Tablet
650 mg PO Q4HPRN PRN (Reason: Mild Pain / Temp > 101) Qty: 90 0RF
metoprolol succinate 50 mg Tablet Extended Release 24 Hr
50 mg PO BID Qty: 60 0RF
furosemide 80 mg Tablet
80 mg PO BID Qty: 60 0RF
duloxetine 20 mg Capsule,Delayed Release(Dr/Ec)
20 mg PO DAILY Qty: 30 0RF
Eliquis 5 mg Tablet
5 mg PO BID Qty: 60 0RF
aspirin 81 mg Tablet,Chewable
81 mg PO DAILY Qty: 30 1RF
Referrals:
PRIVATE,PHYSICIAN [Family Provider, Internal Medicine]
Activity Restrictions/Additional Instructions:
You were seen in the emergency department for evaluation of chest pain. While you were in the emergency department, you had an EKG, chest x-ray and two blood tests for the heart, all of which demonstrated no abnormalities. Your blood work showed
that you were mildly dehydrated today. You were given IV fluids with improvement. It is very important to follow-up with your doctor to ensure that your Lasix does not need to be adjusted. 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 Please return
to the emergency department for severe or worsening chest pain, shortness of breath or difficulty breathing, or for any other worsening or concerning symptoms.
Interventions
Interventions:
*Risk Screen - Suicide Last Done: 01/08/25 20:41
*General Assessment Last Done: 01/08/25 20:38
*Neglect/Abuse Screening Last Done: 01/08/25 20:41
ED- Cardiac Assessment Last Done: 01/08/25 20:39
Discharge Date and Time
Print Language: [place]
[2025-01-08] MEDS: NSS 500 IV (22:45)
[2025-01-08 23:44] LABS: Blood Urea Nitrogen 48 mg/dl (9-20); Calcium 8.4 mg/dl (8.4-10.2); Carbon Dioxide 30 mmol/L (22-30); Chloride 101 mmol/L (98-107); Estimated Creatinine Clearance 35 ml/min; Glucose 229 mg/dl (70-99); Potassium 4.9 mmol/L (3.5-5.1); Sodium 137 mmol/L (135-145); eGFR 34.72
[2025-01-08 23:49] LABS: Troponin I 0.020 ng/ml
[2025-01-09] VITALS: BP 139/64
[2025-01-09 00:30] VITALS: BP 168/77
[2025-01-09 01:00] VITALS: BP 153/74
[2025-01-09 01:30] VITALS: BP 134/72
[2025-01-09 02:00] VITALS: BP 154/74
== END 2025-01-09 02:51 ==
LOC: EMR 19:51
PROVIDERS: Emergency Medicine; Physician Assistant Medical; EMERGENCY PHYSICIAN Emergency Medicine
DX: R07.89 Other chest pain (principal); E11.9 Type 2 diabetes mellitus without complications; I11.0 Hypertensive heart disease with heart failure; I50.9 Heart failure, unspecified; I25.10 Atherosclerotic heart disease of native coronary artery without angina pectoris; Z86.73 Personal history of transient ischemic attack (TIA), and cerebral infarction without residual deficits; Z95.1 Presence of aortocoronary bypass graft
CPT/HCPCS: 99285; 96360; 71046; 80048; 80053; 84484; 85025; 93005